=== PATIENT | female | born 1985 | race Caucasian/White ===

== ENCOUNTER → 2019-08-05 06:46 | Outpatient (CLI) | payer OTHER, SELFPAY ==
[2019-08-05 07:47] LABS: Add Manual Diff / Slide Review NO; Basophils Absolute Auto 100 /uL (0-100); Basophils Percent Auto 0.8 % (0-2); Eosinophils Absolute Auto 300 /uL (0-450); Eosinophils Percent Auto 4.6 % (2-4); Hematocrit 42.7 % (36-46); Hemoglobin 14.5 g/dL (12.0-16.0); Lymphocytes Absolute Auto 1700 /uL (1100-4500); Lymphocytes Percent Auto 25.5 % (25-40); Mean Corpuscular HGB Conc 33.9 % (30-36); Mean Corpuscular Hemoglobin 29.8 PG (26-34); Monocytes Absolute Auto 400 /uL (0-900); Monocytes Percent Auto 6.1 % (3-14); Neutrophils Absolute Auto 4200 /uL (1500-7000); Platelet Count 246 X10^3/uL (150-400); Red Blood Cell Count 4.85 X10^6/uL (4.0-5.2); Red Cell Distribution Width 12.8 % (11.6-14.8); White Blood Cell Count 6.7 X10^3/uL (4.5-11.0)
[2019-08-05 07:56] LABS: Alanine Aminotransferase 12 IU/L (<35); Albumin 4.3 g/dL (3.5-5.0); Albumin Globulin Ratio 1.3 (1.0-2.8); Alkaline Phosphatase 49 U/L (38-126); Aspartate Aminotransferase 20 IU/L (14-36); Bilirubin Total 0.8 mg/dL (0.2-1.3); Blood Urea Nitrogen 9 mg/dL (7-17); Calcium 9.6 mg/dL (8.4-10.2); Carbon Dioxide 24 mmol/L (22-32); Chloride 106 mmol/L (98-107); Estimated Glomerular Filt Rate > 60.0 mL/min (>60); Globulin 3.2 g/dL (1.7-4.1); Glucose 89 mg/dL (70-100); HEMOLYSIS < 15 (0-50); Potassium 4.7 mmol/L (3.4-5.1); Sodium 140 mmol/L (137-145); Total Protein 7.5 g/dL (6.3-8.2)
[2019-08-05 08:14] LABS: Vitamin D 25 Hydroxy (D3) 39.9 ng/mL (30.0-100.0)
[2019-08-05 08:26] LABS: Free T3, Triiodothyronine Free 3.36 pg/mL (2.77-5.27); Free T4, Direct Thyroxine 0.93 ng/dL (0.78-2.19)
[2019-08-05 08:40] LABS: Thyroid Stimulating Hormone 2.45 uIU/mL (0.47-4.68)
[2019-08-05 08:45] LABS: Vitamin B12 235 pg/mL (239-931)
== END ==
PROVIDERS: PCP Family Medicine; Referring Provider Family Medicine; Visit Provider Family Medicine
DX: E55.9 Vitamin D deficiency, unspecified (principal); R53.83 Other fatigue; Z13.29 Encounter for screening for other suspected endocrine disorder
CPT/HCPCS: 36415; 80053; 82306; 82607; 84439; 84443; 84481; 85025

== ENCOUNTER 2020-02-25 09:35 | Inpatient (IN) | payer OTHER, SELFPAY ==
[2020-02-25] VITALS (21 sets, daily range): BP systolic 101–138; BP diastolic 61–81; PULSE 61–106; RESP 14–32; TEMP 36.2–37.1; O2SAT 92–100; BMI 28.3
--- NOTE | 2020-02-25 | PATH_ITS ---
[facility] Accession Number: [id number] . 01 Material submitted: . body - MASS AT 20CM . 01 Clinical history: . CONSTIPATION/ABD PAIN 5-9/10 NAUSEA X3 DAYS . 02 Diagnosis: Colon Mass at 20 cm, Biopsy: Colonic mucosa with focal mucosal hyperplasia and benign lymphoid aggregates. Negative for dysplasia or malignancy. Additional step sections examined. V 03/01/2020 1344 Local . 02 Comment: Please see subsequent sigmoid resection case ([id number]) for additional information. . 02 Electronically signed: . Vito Paris MD, PhD, Pathologist NPI- [id number] . 01 Gross description: . Received in formalin, labeled mass at 20 cm, and consists of two santana-pink polyps measuring 0.5 and 0.6 cm. The margins are inked blue and green, the larger polyp is bisected, and the specimen is entirely submitted in cassette A1. (EA/[id number]) /V 02/26/2020 1238 Local . 02 Pathologist provided ICD-10: K63.5, K56.609 . 02 CPT . 542051 Performed at: 01 [facility] [address], [place], [place] [id number] MD Jaswinder Johnson MD Phone: [phone] Performed at: 02 [facility] [address] [place], [place] [id number] MD Nakita Limon MD Phone: [phone]
[2020-02-25 10:49] LABS: Add Manual Diff / Slide Review NO; Basophils Absolute Auto 0 /uL (0-100); Basophils Percent Auto 0.4 % (0-2); Eosinophils Absolute Auto 100 /uL (0-450); Hematocrit 43.2 % (36-46); Hemoglobin 14.6 g/dL (12.0-16.0); Lymphocytes Absolute Auto 1300 /uL (1100-4500); Lymphocytes Percent Auto 12.5 % (25-40); Mean Corpuscular HGB Conc 33.7 % (30-36); Mean Corpuscular Hemoglobin 29.3 PG (26-34); Mean Corpuscular Volume 86.9 fL (80-100); Monocytes Absolute Auto 500 /uL (0-900); Monocytes Percent Auto 5.2 % (3-14); Neutrophils Absolute Auto 8100 /uL (1500-7000); Neutrophils Percent Auto 80.9 % (50-75); Platelet Count 281 X10^3/uL (150-400); Red Blood Cell Count 4.97 X10^6/uL (4.0-5.2); Red Cell Distribution Width 12.5 % (11.6-14.8)
[2020-02-25 10:51] LABS: Prothrombin Time 11.6 SECONDS (10.1-12.7)
[2020-02-25 10:53] LABS: PTT Partial Thromboplastin Tim 30 SECONDS (26.4-36.2)
[2020-02-25 10:56] LABS: Alanine Aminotransferase 22 IU/L (<35); Albumin 4.6 g/dL (3.5-5.0); Albumin Globulin Ratio 1.4 (1.0-2.8); Alkaline Phosphatase 67 U/L (38-126); Aspartate Aminotransferase 32 IU/L (14-36); BUN Creatinine Ratio 12.1 (6-22); Bilirubin Total 0.8 mg/dL (0.2-1.3); Blood Urea Nitrogen 8 mg/dL (7-17); Calcium 9.4 mg/dL (8.4-10.2); Carbon Dioxide 27 mmol/L (22-32); Chloride 104 mmol/L (98-107); Estimated Glomerular Filt Rate > 60.0 mL/min (>60); Globulin 3.2 g/dL (1.7-4.1); Glucose 104 mg/dL (70-100); HEMOLYSIS < 15 (0-50); Lipase 77 U/L (23-300); Sodium 140 mmol/L (137-145); Total Protein 7.8 g/dL (6.3-8.2)
--- NOTE | 2020-02-25 11:21 | DI.RAD.S_ITS ---
PROCEDURE: XR ABDOMEN 1V INDICATIONS: constipation suspected TECHNIQUE: One view of the abdomen acquired. COMPARISON: None. FINDINGS: Surgical changes and devices: None. Bowel: There is segmental gaseous distention of the colon involving the transverse and descending colon with associated air-fluid levels. Scattered air-fluid levels are also demonstrated within nondistended small bowel loops. Soft tissues: No suspicious abdominal calcifications. Bones: No suspicious bony lesions. IMPRESSION: 1. Segmental gas distention of the colon associated with air-fluid levels in the small and large bowel. The findings are suspicious for a distal colonic obstruction. Recommend correlation clinically and further evaluation with CT if indicated. Dictated by: Jaswinder Madsen M.D. on 02/25/2020 at 12:10 Approved by: Jaswinder Madsen M.D. on 02/25/2020 at 12:18
--- NOTE | 2020-02-25 11:24 | ED.ABDPAIN ---
HPI - Abdominal Pain <Lizbet Barlow PA-C - Last Filed: 02/25/20 21:41> General Chief Complaint: Abdominal Pain Stated Complaint: CONSTIPATION/ABD PAIN 5-9/10 NAUSEA [id number] Time Seen by Provider: 02/25/20 11:05 Source: patient Mode of arrival: Ambulatory Limitations: no limitations History of Present Illness HPI narrative: A 34-year-old woman presents with complaint of abdominal pain and discomfort in the setting of her period and not having had a bowel movement for 6 days. She states that gift packer tells her that she may have endometriosis, and she began having pain when her period started on Sunday of last week 6 days ago. She thought this was related to her period. This continued for the next few days but by Sunday she felt that her pain was worsening significantly and she realized she had not had a bowel movement since Sunday. She describes the pain as a constant ache across her belly from left to right down low and states that occasionally there are intense sharp pains as well. It is a 5/10 constantly and sometimes jumping up to about an 8/10 with sharp pains. She has been having some nausea but has not vomited. She has not been eating normally because she feels like she has very little appetite and her stomach feels upset when she eats for the last few days. She has been able to tolerate some fluids. She has no prior history of any problem with constipation, no prior abdominal surgeries. She states that she normally has 1 bowel movement every day that is usually soft but formed. On Sunday she had a very small bowel movement that was abnormal for her. Last week her bowel movements were otherwise normal. the last 2 days she has tried taking milk of magnesia and earlier this morning she tried taking senna neither of these were at all helpful. She is on the last day my period and just has some light spotting right now. She denies any dysuria, fever, chills, vomiting, flank pain or any other symptoms. MD complaint: abdominal pain and other (nausea) Onset (ago): day(s) (6) Pain Consistency: constant Location: diffuse, LLQ and RLQ Severity: moderate Severity scale (1-10): 6 (Occasional sharp pains that jump up to an 8) Quality: aching and sharp Radiation: none Migration to: no migration Relieving factors: nothing Exacerbating factors: eating Associated symptoms: nausea Treatments prior to arrival: other (Milk of magnesia, senna) Related Data Date of Last Menstrual Period: 02/20/20 Home Medications Medication Instructions Recorded Confirmed diphenhydramine-acetaminophen 2 tab PO BEDTIME 02/25/20 02/25/20 [Tylenol PM Extra Strength] ibuprofen 400 mg PO Q6H PRN 02/25/20 02/25/20 Allergies Allergy/AdvReac Type Severity Reaction Status Date / Time No Known Drug Allergies Allergy Verified 02/25/20 16:00 Review of Systems <Lizbet Barlow PA-C - Last Filed: 02/25/20 21:41> Review of Systems Narrative: GENERAL: Denies chills, fatigue, malaise, fever, sweats. HEENT: Denies sinus pain, ear pain, sore throat, difficulty swallowing, dizziness. RESPIRATORY: Denies dyspnea, cough, wheezing, hemoptysis, sputum. CARDIOVASCULAR: Denies chest pain, palpitations, orthopnea, edema, GASTROINTESTINAL: Positive for nausea, negative for vomiting, positive for abdominal pain, negative for diarrhea, positive for constipation for 5 days, negative for melena. : Denies dysuria, frequency, incontinence, hematuria, urinary retention. MUSCULOSKELETAL: denies weakness, joint pain, or bony pain SKIN: Denies rash, skin lesions, or other NEUROLOGIC: Denies weakness, headache, numbness, change in speech, confusion, seizures, incoordination. PSYCHIATRIC: No concerning psychosocial issues. 12 point review of systems is negative except for those stated above ROS Unobtainable: All systems reviewed & are unremarkable except as noted in HPI and below Patient History <Lizbet Barlow PA-C - Last Filed: 02/25/20 21:41> Medical History Chicken pox (Resolved ~1995) Vitamin D deficiency (Acute) Family History Father Hypertension Grandfather Diabetes mellitus Grandfather Stroke Social History household members: spouse Smoking Status: Never smoker alcohol intake: current Smoking Status: Never smoker alcohol intake frequency: holidays/special occasions only Substance Use Type: marijuana Exam <Lizbet Barlow PA-C - Last Filed: 02/25/20 21:41> Narrative Exam Narrative: GENERAL: 34 year old patient appears stated age. Well-nourished, well-developed patient, in moderate distress. HEAD: Atraumatic. Normocephalic. EYES: Pupils equal round and reactive. Extraocular motions intact. No scleral icterus. No injection or drainage. ENT: Nose without bleeding, purulent drainage. Throat without erythema, tonsillar hypertrophy or exudate. Airway patent. NECK: Trachea midline. Non tender CARDIOVASCULAR: Regular rate and rhythm without murmurs, gallops, or rubs. RESPIRATORY: Clear to auscultation. Breath sounds equal bilaterally. No wheezes, rales, or rhonchi. GASTROINTESTINAL: Abdomen soft, hyperactive bowel sounds, generally non-tender, however there is general discomfort with palpation particularly of lower quadrants slight bloating but nondistended. EXTREMITIES: No edema or joint tenderness. BACK: Nontender without deformity or crepitance. No flank tenderness. NEURO: AOx3. SKIN: No rash or erythema of visible areas Initial Vital Signs Initial Vital Signs: Vital Signs Temperature 98.7 F 02/25/20 10:22 Pulse Rate 94 H 02/25/20 10:22 Respiratory Rate 14 02/25/20 10:22 Blood Pressure 138/81 02/25/20 10:22 Pulse Oximetry 96 02/25/20 10:22 <Starr Caceres MD - Last Filed: 03/02/20 07:31> Initial Vital Signs Initial Vital Signs: Vital Signs Temperature 98.7 F 02/25/20 10:22 Pulse Rate 94 H 02/25/20 10:22 Respiratory Rate 14 02/25/20 10:22 Blood Pressure 138/81 02/25/20 10:22 Pulse Oximetry 96 02/25/20 10:22 Scores <Lizbet Barlow PA-C - Last Filed: 02/25/20 21:41> GCS Crispin coma scale eye opening: Spontaneous [place] coma scale verbal response: Orientated Crispin coma scale motor response: Obey commands Crispin coma scale total score: 15 Course <ZOHRA Erazo Last Filed: 02/25/20 21:41> Course Course Narrative: Advised the patient of the need for CTscan for further evaluation. Patient in agreement. 12:[address] scan radiology read and imaging with Dr. Caceres, contacting on-call surgery. Concern for inflammatory process versus neoplasm of her colon. 13:[address] Gonzalez about this patient, he will review her imaging chart and take a look at her. 13:40 Orders Ordered: Acetaminophen (Tylenol) 650 mg PO Q6HR PRN PRN Reason: Fever/Mild Pain (1-3) Enoxaparin Sodium (Lovenox) 40 mg SUBCUT 1715 STAN Last Admin: 03/01/20 18:03 Dose: 40 mg Documented by: Admin: 02/29/20 21:13 Dose: 40 mg Documented by: Admin: 02/29/20 17:44 Dose: Not Given Documented by: MORGAN Hydromorphone HCl (Dilaudid) 0.5 mg IV Q2H PRN PRN Reason: Pain, Severe (7-10) Last Admin: 02/29/20 13:53 Dose: 0.5 mg Documented by: Admin: 02/28/20 07:49 Dose: 0.5 mg Documented by: MAXINE Ketorolac Tromethamine (Toradol) 30 mg IV Q6HR STAN Stop: 03/02/20 13:25 Last Admin: 03/02/20 06:13 Dose: 30 mg Documented by: Admin: 03/02/20 00:48 Dose: Not Given Documented by: Admin: 03/01/20 18:03 Dose: 30 mg Documented by: Admin: 03/01/20 14:57 Dose: Not Given Documented by: Admin: 03/01/20 06:23 Dose: 30 mg Documented by: Admin: 03/01/20 00:27 Dose: 30 mg Documented by: Admin: 02/29/20 17:53 Dose: 30 mg Documented by: Admin: 02/29/20 13:17 Dose: 30 mg Documented by: Admin: 02/29/20 05:29 Dose: 30 mg Documented by: Admin: 02/28/20 23:44 Dose: 30 mg Documented by: Admin: 02/28/20 18:00 Dose: 30 mg Documented by: Admin: 02/28/20 14:29 Dose: 30 mg Documented by: Admin: 02/28/20 06:03 Dose: 30 mg Documented by: Admin: 02/28/20 00:22 Dose: 30 mg Documented by: Admin: 02/27/20 17:45 Dose: 30 mg Documented by: Admin: 02/27/20 12:39 Dose: 30 mg Documented by: Admin: 02/27/20 06:03 Dose: 30 mg Documented by: Admin: 02/27/20 00:00 Dose: 30 mg Documented by: Admin: 02/26/20 17:57 Dose: 30 mg Documented by: MORGAN Loperamide HCl (Imodium) 2 mg PO PRN PRN PRN Reason: Diarrhea Lorazepam (Ativan) 0.5 mg PO Q4HR PRN PRN Reason: Anxiety Last Admin: 03/02/20 02:12 Dose: 0.5 mg Documented by: Admin: 03/01/20 20:48 Dose: 0.5 mg Documented by: Admin: 03/01/20 15:45 Dose: 0.5 mg Documented by: Admin: 03/01/20 11:36 Dose: 0.5 mg Documented by: LYNNE Morphine Sulfate (Morphine) 2 mg IV Q2HR PRN PRN Reason: Pain, Moderate (4-6) Last Admin: 02/26/20 02:27 Dose: 2 mg Documented by: Admin: 02/25/20 21:01 Dose: 2 mg Documented by: VARSHA Naloxone HCl (Narcan) 0.2 mg IV Q2MIN PRN PRN Reason: Opiate Reversal Ondansetron HCl (Zofran) 4 mg IV Q4HR PRN PRN Reason: Nausea And Vomiting Last Admin: 03/01/20 18:03 Dose: 4 mg Documented by: Admin: 02/29/20 16:38 Dose: 4 mg Documented by: MORGAN Oxycodone/Acetaminophen (Percocet 5/325) 1 tab PO Q4HR PRN PRN Reason: Pain, Moderate (4-6) Last Admin: 03/02/20 02:12 Dose: 1 tab Documented by: Admin: 03/01/20 20:48 Dose: 1 tab Documented by: Admin: 03/01/20 15:45 Dose: 1 tab Documented by: Admin: 03/01/20 11:36 Dose: 1 tab Documented by: Admin: 03/01/20 05:23 Dose: 1 tab Documented by: Admin: 02/29/20 22:02 Dose: 1 tab Documented by: Admin: 02/29/20 17:53 Dose: 1 tab Documented by: Admin: 02/29/20 13:07 Dose: 1 tab Documented by: LINDA Pantoprazole Sodium (Protonix) 20 mg PO 0700 STAN Last Admin: 03/02/20 06:13 Dose: 20 mg Documented by: CLEMENCIA Sertraline HCl (Zoloft) 100 mg PO BEDTIME STAN Last Admin: 03/01/20 20:48 Dose: 100 mg Documented by: Admin: 02/29/20 21:14 Dose: 100 mg Documented by: Admin: 02/28/20 20:34 Dose: 100 mg Documented by: Admin: 02/27/20 20:39 Dose: 100 mg Documented by: MORGAN Discontinued Medications Bupivacaine Liposome (Exparel) 266 mg INJ NOW ONE Stop: 02/26/20 08:43 Last Admin: 02/26/20 08:42 Dose: 266 mg Documented by: RAJAN Enoxaparin Sodium (Lovenox) 30 mg SUBCUT NOW ONE Stop: 02/28/20 09:54 Last Admin: 02/28/20 14:29 Dose: Not Given Documented by: MAXINE Enoxaparin Sodium (Lovenox) 40 mg SUBCUT 1400 STAN Fentanyl (Sublimaze) 0 mcg IV Q5M PRN PRN Reason: Pain, Moderate (4-6) Fentanyl (Sublimaze) 0 mcg IV Q5M PRN PRN Reason: Pain, Moderate (4-6) Hydromorphone HCl (Dilaudid) 0 mg IV Q5MIN PRN PRN Reason: Pain, Mild (1-3) Sodium Chloride (Normal Saline 0.9%) 1,000 mls @ 1,000 mls/hr IV BOLUS ONE Stop: 02/25/20 13:29 Last Infusion: 02/25/20 14:25 Dose: 0 mls/hr Documented by: Admin: 02/25/20 12:50 Dose: 1,000 mls/hr Documented by: CAITLIN Sodium Chloride (Normal Saline 0.9%) 1,000 mls @ 100 mls/hr IV CONT STAN Last Admin: 02/26/20 05:57 Dose: 100 mls/hr Documented by: Infusion: 02/26/20 05:33 Dose: 100 mls/hr Documented by: Admin: 02/25/20 19:33 Dose: 100 mls/hr Documented by: Infusion: 02/25/20 19:33 Dose: 100 mls/hr Documented by: Admin: 02/25/20 15:48 Dose: 100 mls/hr Documented by: MARIA LUISA Piperacillin/Tazobactam/Dextrose (Zosyn) 3.375 gm in 50 mls @ 100 mls/hr IV Q8H STAN Last Admin: 02/25/20 16:35 Dose: 100 mls/hr Documented by: KEMAL Lactated Ringer's (Lactated Ringers) 1,000 mls @ 42 mls/hr IV CONT STAN Last Infusion: 02/25/20 18:01 Dose: 0 mls/hr Documented by: Admin: 02/25/20 16:15 Dose: 42 mls/hr Documented by: KEMAL Lactated Ringer's (Lactated Ringers) 1,000 mls @ 42 mls/hr IV CONT STAN Last Admin: 02/25/20 19:51 Dose: Not Given Documented by: VARSHA Piperacillin/Tazobactam/Dextrose (Zosyn) 3.375 gm in 50 mls @ 100 mls/hr IV Q8H STAN Last Infusion: 02/26/20 08:11 Dose: 0 mls/hr Documented by: Admin: 02/26/20 07:50 Dose: 100 mls/hr Documented by: NIURKA Lactated Ringer's (Lactated Ringers) 1,000 mls @ 42 mls/hr IV CONT STAN Last Admin: 02/26/20 11:59 Dose: 42 mls/hr Documented by: Infusion: 02/26/20 11:59 Dose: 42 mls/hr Documented by: Admin: 02/26/20 09:26 Dose: 42 mls/hr Documented by: Infusion: 02/26/20 09:26 Dose: 42 mls/hr Documented by: Admin: 02/26/20 07:15 Dose: 42 mls/hr Documented by: ANNIE Lactated Ringer's (Lactated Ringers) 1,000 mls @ 100 mls/hr IV CONT STAN Last Infusion: 03/01/20 11:51 Dose: 0 mls/hr Documented by: Admin: 03/01/20 06:21 Dose: 200 mls/hr Documented by: Infusion: 03/01/20 05:41 Dose: 200 mls/hr Documented by: Admin: 03/01/20 00:41 Dose: 200 mls/hr Documented by: Infusion: 03/01/20 00:09 Dose: 200 mls/hr Documented by: Admin: 02/29/20 19:09 Dose: 200 mls/hr Documented by: Infusion: 02/29/20 19:09 Dose: 200 mls/hr Documented by: Admin: 02/29/20 14:15 Dose: 200 mls/hr Documented by: Infusion: 02/29/20 12:26 Dose: 200 mls/hr Documented by: Admin: 02/29/20 07:26 Dose: 200 mls/hr Documented by: [email or web address] Infusion: 02/29/20 07:06 Dose: 200 mls/hr Documented by: [email or web address] Admin: 02/29/20 02:06 Dose: 200 mls/hr Documented by: [email or web address] Infusion: 02/29/20 02:06 Dose: 200 mls/hr Documented by: [email or web address] Infusion: 02/28/20 21:44 Dose: 200 mls/hr Documented by: Admin: 02/28/20 20:33 Dose: 100 mls/hr Documented by: Infusion: 02/28/20 20:33 Dose: 100 mls/hr Documented by: Admin: 02/28/20 15:26 Dose: 100 mls/hr Documented by: Infusion: 02/28/20 15:26 Dose: 100 mls/hr Documented by: Admin: 02/28/20 10:20 Dose: 100 mls/hr Documented by: Infusion: 02/28/20 10:20 Dose: 0 mls/hr Documented by: Admin: 02/27/20 22:08 Dose: 100 mls/hr Documented by: Infusion: 02/27/20 22:08 Dose: 100 mls/hr Documented by: Admin: 02/27/20 12:38 Dose: 100 mls/hr Documented by: Infusion: 02/27/20 11:22 Dose: 100 mls/hr Documented by: Admin: 02/27/20 01:22 Dose: 100 mls/hr Documented by: Infusion: 02/27/20 00:26 Dose: 100 mls/hr Documented by: Admin: 02/26/20 14:26 Dose: 100 mls/hr Documented by: SPABONA FENT 2MCG/ML BUPIV 0.125% EPI (Fentanyl/Bupiv/Ns 2mcg/Ml - 0.125%) 200 mcg in 100 mls @ 10 mls/hr EPIDURAL CONT STAN Last Admin: 02/28/20 22:27 Dose: 6 mls/hr Documented by: Infusion: 02/28/20 22:27 Dose: 6 mls/hr Documented by: Admin: 02/28/20 10:19 Dose: 6 mls/hr Documented by: Infusion: 02/28/20 10:19 Dose: 0 mls/hr Documented by: Infusion: 02/28/20 06:00 Dose: 0 mls/hr Documented by: Admin: 02/27/20 20:40 Dose: 6 mls/hr Documented by: Infusion: 02/27/20 20:40 Dose: 6 mls/hr Documented by: Infusion: 02/27/20 16:45 Dose: 6 mls/hr Documented by: Admin: 02/27/20 12:39 Dose: 10 mls/hr Documented by: Infusion: 02/27/20 12:39 Dose: 10 mls/hr Documented by: Admin: 02/27/20 02:59 Dose: 10 mls/hr Documented by: Infusion: 02/27/20 02:59 Dose: 10 mls/hr Documented by: Admin: 02/26/20 19:03 Dose: 10 mls/hr Documented by: Infusion: 02/26/20 19:03 Dose: 10 mls/hr Documented by: Admin: 02/26/20 14:19 Dose: 10 mls/hr Documented by: SPABONA Piperacillin/Tazobactam/Dextrose (Zosyn) 3.375 gm in 50 mls @ 100 mls/hr IV Q6H [facility] Last Admin: 02/27/20 10:11 Dose: Not Given Documented by: Infusion: 02/27/20 02:59 Dose: 0 mls/hr Documented by: Admin: 02/27/20 01:25 Dose: 100 mls/hr Documented by: Infusion: 02/26/20 21:25 Dose: 0 mls/hr Documented by: Admin: 02/26/20 20:29 Dose: 100 mls/hr Documented by: Infusion: 02/26/20 14:56 Dose: 100 mls/hr Documented by: Admin: 02/26/20 14:26 Dose: 100 mls/hr Documented by: SPABONA Piperacillin/Tazobactam/Dextrose (Zosyn) 3.375 gm in 50 mls @ 100 mls/hr IV Q6H [facility] Last Infusion: 03/01/20 03:35 Dose: 0 mls/hr Documented by: Admin: 03/01/20 02:40 Dose: 100 mls/hr Documented by: Infusion: 02/29/20 21:45 Dose: 0 mls/hr Documented by: Admin: 02/29/20 21:14 Dose: 100 mls/hr Documented by: Infusion: 02/29/20 15:58 Dose: 0 mls/hr Documented by: Admin: 02/29/20 13:53 Dose: 100 mls/hr Documented by: Infusion: 02/29/20 11:17 Dose: 0 mls/hr Documented by: Admin: 02/29/20 09:38 Dose: 100 mls/hr Documented by: Infusion: 02/29/20 05:11 Dose: 0 mls/hr Documented by: Admin: 02/29/20 02:03 Dose: 100 mls/hr Documented by: Infusion: 02/29/20 02:02 Dose: 0 mls/hr Documented by: Admin: 02/28/20 20:28 Dose: 100 mls/hr Documented by: Infusion: 02/28/20 16:09 Dose: 0 mls/hr Documented by: Admin: 02/28/20 14:29 Dose: 100 mls/hr Documented by: Infusion: 02/28/20 10:19 Dose: 0 mls/hr Documented by: Admin: 02/28/20 09:19 Dose: 100 mls/hr Documented by: Infusion: 02/28/20 02:30 Dose: 0 mls/hr Documented by: Admin: 02/28/20 01:56 Dose: 100 mls/hr Documented by: Infusion: 02/27/20 21:37 Dose: 0 mls/hr Documented by: Admin: 02/27/20 20:39 Dose: 100 mls/hr Documented by: Infusion: 02/27/20 16:00 Dose: 0 mls/hr Documented by: Admin: 02/27/20 14:53 Dose: 100 mls/hr Documented by: Infusion: 02/27/20 12:39 Dose: 0 mls/hr Documented by: Admin: 02/27/20 09:52 Dose: 100 mls/hr Documented by: MAXINE Sodium Chloride (Normal Saline 0.9%) 1,000 mls @ 1,000 mls/hr IV BOLUS ONE Stop: 02/28/20 21:27 Last Infusion: 02/28/20 23:00 Dose: 0 mls/hr Documented by: Admin: 02/28/20 20:42 Dose: 1,000 mls/hr Documented by: STARLA Sodium Chloride (Normal Saline 0.9%) 1,000 mls @ 1,000 mls/hr IV BOLUS ONE Stop: 02/29/20 08:00 Last Infusion: 02/29/20 11:17 Dose: 0 mls/hr Documented by: Admin: 02/29/20 08:00 Dose: 1,000 mls/hr Documented by: MAXINE Ketorolac Tromethamine (Toradol) 15 mg IV NOW ONE Stop: 02/25/20 11:23 Last Admin: 02/25/20 11:48 Dose: 15 mg Documented by: VERONICA Loperamide HCl (Imodium) 2 mg PO NOW ONE Stop: 02/28/20 20:29 Last Admin: 02/28/20 20:47 Dose: 2 mg Documented by: STARLA Loperamide HCl (Imodium) 2 mg PO TID STAN Last Admin: 03/01/20 11:52 Dose: Not Given Documented by: Admin: 02/29/20 21:14 Dose: 2 mg Documented by: Admin: 02/29/20 16:37 Dose: 2 mg Documented by: Admin: 02/29/20 15:52 Dose: Not Given Documented by: MAXINE Lorazepam (Ativan) 0.5 mg IV NOW PRN PRN Reason: Anxiety Lorazepam (Ativan) 0.5 mg IV Q2HR PRN PRN Reason: Anxiety Last Admin: 03/01/20 05:23 Dose: 0.5 mg Documented by: Admin: 03/01/20 00:41 Dose: 0.5 mg Documented by: Admin: 02/29/20 22:02 Dose: 0.5 mg Documented by: Admin: 02/29/20 13:53 Dose: 0.5 mg Documented by: Admin: 02/29/20 04:27 Dose: 0.5 mg Documented by: Admin: 02/28/20 23:42 Dose: 0.5 mg Documented by: Admin: 02/28/20 18:01 Dose: 0.5 mg Documented by: Admin: 02/28/20 08:13 Dose: 0.5 mg Documented by: Admin: 02/28/20 00:22 Dose: 0.5 mg Documented by: Admin: 02/27/20 20:39 Dose: 0.5 mg Documented by: Admin: 02/27/20 00:08 Dose: 0.5 mg Documented by: Admin: 02/26/20 20:30 Dose: 0.5 mg Documented by: Admin: 02/26/20 06:46 Dose: 0.5 mg Documented by: Admin: 02/26/20 02:26 Dose: 0.5 mg Documented by: Admin: 02/25/20 19:32 Dose: 0.5 mg Documented by: VARSHA Ondansetron HCl (Zofran) 4 mg IV NOW ONE Stop: 02/25/20 11:08 Last Admin: 02/25/20 11:47 Dose: 4 mg Documented by: VERONICA Ondansetron HCl (Zofran) 4 mg IV Q8HR PRN PRN Reason: Nausea And Vomiting Last Admin: 02/29/20 09:44 Dose: 4 mg Documented by: Admin: 02/28/20 23:41 Dose: 4 mg Documented by: Admin: 02/28/20 14:30 Dose: 4 mg Documented by: MAXINE Ondansetron HCl (Zofran) 4 mg IV NOW PRN PRN Reason: Nausea And Vomiting Ondansetron HCl (Zofran) 4 mg IV NOW PRN PRN Reason: Nausea And Vomiting Pantoprazole Sodium (Protonix) 40 mg IV DAILY [facility] Last Admin: 03/01/20 11:52 Dose: Not Given Documented by: Admin: 02/29/20 09:38 Dose: 40 mg Documented by: MAXINE Sodium Biphosphate/Sodium Phosphate (Fleet Enema) 1 each [place] NOW ONE Stop: 02/25/20 15:27 Last Admin: 02/25/20 15:46 Dose: 1 each Documented by: MARIA LUISA Vital Signs Vital signs: Vital Signs - 8 hr 02/25/20 13:30 02/25/20 14:00 02/25/20 14:30 Pulse Rate 61 67 91 H Respiratory Rate 15 19 23 Pulse Oximetry 99 99 92 <Starr Caceres MD - Last Filed: 03/02/20 07:31> Orders Ordered: Acetaminophen (Tylenol) 650 mg PO Q6HR PRN PRN Reason: Fever/Mild Pain (1-3) Enoxaparin Sodium (Lovenox) 40 mg SUBCUT 1715 STAN Last Admin: 03/01/20 18:03 Dose: 40 mg Documented by: Admin: 02/29/20 21:13 Dose: 40 mg Documented by: Admin: 02/29/20 17:44 Dose: Not Given Documented by: MORGAN Hydromorphone HCl (Dilaudid) 0.5 mg IV Q2H PRN PRN Reason: Pain, Severe (7-10) Last Admin: 02/29/20 13:53 Dose: 0.5 mg Documented by: Admin: 02/28/20 07:49 Dose: 0.5 mg Documented by: MAXINE Ketorolac Tromethamine (Toradol) 30 mg IV Q6HR [facility] Stop: 03/02/20 13:25 Last Admin: 03/02/20 06:13 Dose: 30 mg Documented by: Admin: 03/02/20 00:48 Dose: Not Given Documented by: Admin: 03/01/20 18:03 Dose: 30 mg Documented by: Admin: 03/01/20 14:57 Dose: Not Given Documented by: Admin: 03/01/20 06:23 Dose: 30 mg Documented by: Admin: 03/01/20 00:27 Dose: 30 mg Documented by: Admin: 02/29/20 17:53 Dose: 30 mg Documented by: Admin: 02/29/20 13:17 Dose: 30 mg Documented by: Admin: 02/29/20 05:29 Dose: 30 mg Documented by: Admin: 02/28/20 23:44 Dose: 30 mg Documented by: Admin: 02/28/20 18:00 Dose: 30 mg Documented by: Admin: 02/28/20 14:29 Dose: 30 mg Documented by: Admin: 02/28/20 06:03 Dose: 30 mg Documented by: Admin: 02/28/20 00:22 Dose: 30 mg Documented by: Admin: 02/27/20 17:45 Dose: 30 mg Documented by: Admin: 02/27/20 12:39 Dose: 30 mg Documented by: Admin: 02/27/20 06:03 Dose: 30 mg Documented by: Admin: 02/27/20 00:00 Dose: 30 mg Documented by: Admin: 02/26/20 17:57 Dose: 30 mg Documented by: MORGAN Loperamide HCl (Imodium) 2 mg PO PRN PRN PRN Reason: Diarrhea Lorazepam (Ativan) 0.5 mg PO Q4HR PRN PRN Reason: Anxiety Last Admin: 03/02/20 02:12 Dose: 0.5 mg Documented by: Admin: 03/01/20 20:48 Dose: 0.5 mg Documented by: Admin: 03/01/20 15:45 Dose: 0.5 mg Documented by: Admin: 03/01/20 11:36 Dose: 0.5 mg Documented by: LYNNE Morphine Sulfate (Morphine) 2 mg IV Q2HR PRN PRN Reason: Pain, Moderate (4-6) Last Admin: 02/26/20 02:27 Dose: 2 mg Documented by: Admin: 02/25/20 21:01 Dose: 2 mg Documented by: VARSHA Naloxone HCl (Narcan) 0.2 mg IV Q2MIN PRN PRN Reason: Opiate Reversal Ondansetron HCl (Zofran) 4 mg IV Q4HR PRN PRN Reason: Nausea And Vomiting Last Admin: 03/01/20 18:03 Dose: 4 mg Documented by: Admin: 02/29/20 16:38 Dose: 4 mg Documented by: MORGAN Oxycodone/Acetaminophen (Percocet 5/325) 1 tab PO Q4HR PRN PRN Reason: Pain, Moderate (4-6) Last Admin: 03/02/20 02:12 Dose: 1 tab Documented by: Admin: 03/01/20 20:48 Dose: 1 tab Documented by: Admin: 03/01/20 15:45 Dose: 1 tab Documented by: Admin: 03/01/20 11:36 Dose: 1 tab Documented by: Admin: 03/01/20 05:23 Dose: 1 tab Documented by: Admin: 02/29/20 22:02 Dose: 1 tab Documented by: Admin: 02/29/20 17:53 Dose: 1 tab Documented by: Admin: 02/29/20 13:07 Dose: 1 tab Documented by: LINDA Pantoprazole Sodium (Protonix) 20 mg PO 0700 [facility] Last Admin: 03/02/20 06:13 Dose: 20 mg Documented by: CLEMENCIA Sertraline HCl (Zoloft) 100 mg PO BEDTIME [facility] Last Admin: 03/01/20 20:48 Dose: 100 mg Documented by: Admin: 02/29/20 21:14 Dose: 100 mg Documented by: Admin: 02/28/20 20:34 Dose: 100 mg Documented by: Admin: 02/27/20 20:39 Dose: 100 mg Documented by: MORGAN Discontinued Medications Bupivacaine Liposome (Exparel) 266 mg INJ NOW ONE Stop: 02/26/20 08:43 Last Admin: 02/26/20 08:42 Dose: 266 mg Documented by: RAJAN Enoxaparin Sodium (Lovenox) 30 mg SUBCUT NOW ONE Stop: 02/28/20 09:54 Last Admin: 02/28/20 14:29 Dose: Not Given Documented by: MAXINE Enoxaparin Sodium (Lovenox) 40 mg SUBCUT 1400 STAN Fentanyl (Sublimaze) 0 mcg IV Q5M PRN PRN Reason: Pain, Moderate (4-6) Fentanyl (Sublimaze) 0 mcg IV Q5M PRN PRN Reason: Pain, Moderate (4-6) Hydromorphone HCl (Dilaudid) 0 mg IV Q5MIN PRN PRN Reason: Pain, Mild (1-3) Sodium Chloride (Normal Saline 0.9%) 1,000 mls @ 1,000 mls/hr IV BOLUS ONE Stop: 02/25/20 13:29 Last Infusion: 02/25/20 14:25 Dose: 0 mls/hr Documented by: Admin: 02/25/20 12:50 Dose: 1,000 mls/hr Documented by: CAITLIN Sodium Chloride (Normal Saline 0.9%) 1,000 mls @ 100 mls/hr IV CONT STAN Last Admin: 02/26/20 05:57 Dose: 100 mls/hr Documented by: Infusion: 02/26/20 05:33 Dose: 100 mls/hr Documented by: Admin: 02/25/20 19:33 Dose: 100 mls/hr Documented by: Infusion: 02/25/20 19:33 Dose: 100 mls/hr Documented by: Admin: 02/25/20 15:48 Dose: 100 mls/hr Documented by: MARIA LUISA Piperacillin/Tazobactam/Dextrose (Zosyn) 3.375 gm in 50 mls @ 100 mls/hr IV Q8H STAN Last Admin: 02/25/20 16:35 Dose: 100 mls/hr Documented by: KEMAL Lactated Ringer's (Lactated Ringers) 1,000 mls @ 42 mls/hr IV CONT STAN Last Infusion: 02/25/20 18:01 Dose: 0 mls/hr Documented by: Admin: 02/25/20 16:15 Dose: 42 mls/hr Documented by: KEMAL Lactated Ringer's (Lactated Ringers) 1,000 mls @ 42 mls/hr IV CONT STAN Last Admin: 02/25/20 19:51 Dose: Not Given Documented by: VARSHA Piperacillin/Tazobactam/Dextrose (Zosyn) 3.375 gm in 50 mls @ 100 mls/hr IV Q8H STAN Last Infusion: 02/26/20 08:11 Dose: 0 mls/hr Documented by: Admin: 02/26/20 07:50 Dose: 100 mls/hr Documented by: NIURKA Lactated Ringer's (Lactated Ringers) 1,000 mls @ 42 mls/hr IV CONT STAN Last Admin: 02/26/20 11:59 Dose: 42 mls/hr Documented by: Infusion: 02/26/20 11:59 Dose: 42 mls/hr Documented by: Admin: 02/26/20 09:26 Dose: 42 mls/hr Documented by: Infusion: 02/26/20 09:26 Dose: 42 mls/hr Documented by: Admin: 02/26/20 07:15 Dose: 42 mls/hr Documented by: ANNIE Lactated Ringer's (Lactated Ringers) 1,000 mls @ 100 mls/hr IV CONT STAN Last Infusion: 03/01/20 11:51 Dose: 0 mls/hr Documented by: Admin: 03/01/20 06:21 Dose: 200 mls/hr Documented by: Infusion: 03/01/20 05:41 Dose: 200 mls/hr Documented by: Admin: 03/01/20 00:41 Dose: 200 mls/hr Documented by: Infusion: 03/01/20 00:09 Dose: 200 mls/hr Documented by: Admin: 02/29/20 19:09 Dose: 200 mls/hr Documented by: Infusion: 02/29/20 19:09 Dose: 200 mls/hr Documented by: Admin: 02/29/20 14:15 Dose: 200 mls/hr Documented by: Infusion: 02/29/20 12:26 Dose: 200 mls/hr Documented by: Admin: 02/29/20 07:26 Dose: 200 mls/hr Documented by: Infusion: 02/29/20 07:06 Dose: 200 mls/hr Documented by: Admin: 02/29/20 02:06 Dose: 200 mls/hr Documented by: CTRReginaALAFFE Infusion: 02/29/20 02:06 Dose: 200 mls/hr Documented by: CTRReginaALATRACY Infusion: 02/28/20 21:44 Dose: 200 mls/hr Documented by: Admin: 02/28/20 20:33 Dose: 100 mls/hr Documented by: Infusion: 02/28/20 20:33 Dose: 100 mls/hr Documented by: Admin: 02/28/20 15:26 Dose: 100 mls/hr Documented by: Infusion: 02/28/20 15:26 Dose: 100 mls/hr Documented by: Admin: 02/28/20 10:20 Dose: 100 mls/hr Documented by: Infusion: 02/28/20 10:20 Dose: 0 mls/hr Documented by: Admin: 02/27/20 22:08 Dose: 100 mls/hr Documented by: Infusion: 02/27/20 22:08 Dose: 100 mls/hr Documented by: Admin: 02/27/20 12:38 Dose: 100 mls/hr Documented by: Infusion: 02/27/20 11:22 Dose: 100 mls/hr Documented by: Admin: 02/27/20 01:22 Dose: 100 mls/hr Documented by: Infusion: 02/27/20 00:26 Dose: 100 mls/hr Documented by: Admin: 02/26/20 14:26 Dose: 100 mls/hr Documented by: SPABONA FENT 2MCG/ML BUPIV 0.125% EPI (Fentanyl/Bupiv/Ns 2mcg/Ml - 0.125%) 200 mcg in 100 mls @ 10 mls/hr EPIDURAL CONT STAN Last Admin: 02/28/20 22:27 Dose: 6 mls/hr Documented by: Infusion: 02/28/20 22:27 Dose: 6 mls/hr Documented by: Admin: 02/28/20 10:19 Dose: 6 mls/hr Documented by: Infusion: 02/28/20 10:19 Dose: 0 mls/hr Documented by: Infusion: 02/28/20 06:00 Dose: 0 mls/hr Documented by: Admin: 02/27/20 20:40 Dose: 6 mls/hr Documented by: Infusion: 02/27/20 20:40 Dose: 6 mls/hr Documented by: Infusion: 02/27/20 16:45 Dose: 6 mls/hr Documented by: Admin: 02/27/20 12:39 Dose: 10 mls/hr Documented by: Infusion: 02/27/20 12:39 Dose: 10 mls/hr Documented by: Admin: 02/27/20 02:59 Dose: 10 mls/hr Documented by: Infusion: 02/27/20 02:59 Dose: 10 mls/hr Documented by: Admin: 02/26/20 19:03 Dose: 10 mls/hr Documented by: Infusion: 02/26/20 19:03 Dose: 10 mls/hr Documented by: Admin: 02/26/20 14:19 Dose: 10 mls/hr Documented by: SPABONA Piperacillin/Tazobactam/Dextrose (Zosyn) 3.375 gm in 50 mls @ 100 mls/hr IV Q6H [facility] Last Admin: 02/27/20 10:11 Dose: Not Given Documented by: Infusion: 02/27/20 02:59 Dose: 0 mls/hr Documented by: Admin: 02/27/20 01:25 Dose: 100 mls/hr Documented by: Infusion: 02/26/20 21:25 Dose: 0 mls/hr Documented by: Admin: 02/26/20 20:29 Dose: 100 mls/hr Documented by: Infusion: 02/26/20 14:56 Dose: 100 mls/hr Documented by: Admin: 02/26/20 14:26 Dose: 100 mls/hr Documented by: KHUSHBUBONA Piperacillin/Tazobactam/Dextrose (Zosyn) 3.375 gm in 50 mls @ 100 mls/hr IV Q6H [facility] Last Infusion: 03/01/20 03:35 Dose: 0 mls/hr Documented by: Admin: 03/01/20 02:40 Dose: 100 mls/hr Documented by: Infusion: 02/29/20 21:45 Dose: 0 mls/hr Documented by: Admin: 02/29/20 21:14 Dose: 100 mls/hr Documented by: Infusion: 02/29/20 15:58 Dose: 0 mls/hr Documented by: Admin: 02/29/20 13:53 Dose: 100 mls/hr Documented by: Infusion: 02/29/20 11:17 Dose: 0 mls/hr Documented by: Admin: 02/29/20 09:38 Dose: 100 mls/hr Documented by: Infusion: 02/29/20 05:11 Dose: 0 mls/hr Documented by: Admin: 02/29/20 02:03 Dose: 100 mls/hr Documented by: Infusion: 02/29/20 02:02 Dose: 0 mls/hr Documented by: Admin: 02/28/20 20:28 Dose: 100 mls/hr Documented by: Infusion: 02/28/20 16:09 Dose: 0 mls/hr Documented by: Admin: 02/28/20 14:29 Dose: 100 mls/hr Documented by: Infusion: 02/28/20 10:19 Dose: 0 mls/hr Documented by: Admin: 02/28/20 09:19 Dose: 100 mls/hr Documented by: Infusion: 02/28/20 02:30 Dose: 0 mls/hr Documented by: Admin: 02/28/20 01:56 Dose: 100 mls/hr Documented by: Infusion: 02/27/20 21:37 Dose: 0 mls/hr Documented by: Admin: 02/27/20 20:39 Dose: 100 mls/hr Documented by: Infusion: 02/27/20 16:00 Dose: 0 mls/hr Documented by: Admin: 02/27/20 14:53 Dose: 100 mls/hr Documented by: Infusion: 02/27/20 12:39 Dose: 0 mls/hr Documented by: Admin: 02/27/20 09:52 Dose: 100 mls/hr Documented by: MAXINE Sodium Chloride (Normal Saline 0.9%) 1,000 mls @ 1,000 mls/hr IV BOLUS ONE Stop: 02/28/20 21:27 Last Infusion: 02/28/20 23:00 Dose: 0 mls/hr Documented by: Admin: 02/28/20 20:42 Dose: 1,000 mls/hr Documented by: STARLA Sodium Chloride (Normal Saline 0.9%) 1,000 mls @ 1,000 mls/hr IV BOLUS ONE Stop: 02/29/20 08:00 Last Infusion: 02/29/20 11:17 Dose: 0 mls/hr Documented by: Admin: 02/29/20 08:00 Dose: 1,000 mls/hr Documented by: MAXINE Ketorolac Tromethamine (Toradol) 15 mg IV NOW ONE Stop: 02/25/20 11:23 Last Admin: 02/25/20 11:48 Dose: 15 mg Documented by: VERONICA Loperamide HCl (Imodium) 2 mg PO NOW ONE Stop: 02/28/20 20:29 Last Admin: 02/28/20 20:47 Dose: 2 mg Documented by: STARLA Loperamide HCl (Imodium) 2 mg PO TID STAN Last Admin: 03/01/20 11:52 Dose: Not Given Documented by: Admin: 02/29/20 21:14 Dose: 2 mg Documented by: Admin: 02/29/20 16:37 Dose: 2 mg Documented by: Admin: 02/29/20 15:52 Dose: Not Given Documented by: MAXINE Lorazepam (Ativan) 0.5 mg IV NOW PRN PRN Reason: Anxiety Lorazepam (Ativan) 0.5 mg IV Q2HR PRN PRN Reason: Anxiety Last Admin: 03/01/20 05:23 Dose: 0.5 mg Documented by: Admin: 03/01/20 00:41 Dose: 0.5 mg Documented by: Admin: 02/29/20 22:02 Dose: 0.5 mg Documented by: Admin: 02/29/20 13:53 Dose: 0.5 mg Documented by: Admin: 02/29/20 04:27 Dose: 0.5 mg Documented by: Admin: 02/28/20 23:42 Dose: 0.5 mg Documented by: Admin: 02/28/20 18:01 Dose: 0.5 mg Documented by: Admin: 02/28/20 08:13 Dose: 0.5 mg Documented by: Admin: 02/28/20 00:22 Dose: 0.5 mg Documented by: Admin: 02/27/20 20:39 Dose: 0.5 mg Documented by: Admin: 02/27/20 00:08 Dose: 0.5 mg Documented by: Admin: 02/26/20 20:30 Dose: 0.5 mg Documented by: Admin: 02/26/20 06:46 Dose: 0.5 mg Documented by: Admin: 02/26/20 02:26 Dose: 0.5 mg Documented by: Admin: 02/25/20 19:32 Dose: 0.5 mg Documented by: VARSHA Ondansetron HCl (Zofran) 4 mg IV NOW ONE Stop: 02/25/20 11:08 Last Admin: 02/25/20 11:47 Dose: 4 mg Documented by: VERONICA Ondansetron HCl (Zofran) 4 mg IV Q8HR PRN PRN Reason: Nausea And Vomiting Last Admin: 02/29/20 09:44 Dose: 4 mg Documented by: Admin: 02/28/20 23:41 Dose: 4 mg Documented by: Admin: 02/28/20 14:30 Dose: 4 mg Documented by: MAXINE Ondansetron HCl (Zofran) 4 mg IV NOW PRN PRN Reason: Nausea And Vomiting Ondansetron HCl (Zofran) 4 mg IV NOW PRN PRN Reason: Nausea And Vomiting Pantoprazole Sodium (Protonix) 40 mg IV DAILY STAN Last Admin: 03/01/20 11:52 Dose: Not Given Documented by: Admin: 02/29/20 09:38 Dose: 40 mg Documented by: MAXINE Sodium Biphosphate/Sodium Phosphate (Fleet Enema) 1 each [place] NOW ONE Stop: 02/25/20 15:27 Last Admin: 02/25/20 15:46 Dose: 1 each Documented by: MARIA LUISA Vital Signs Vital signs: Vital Signs - 8 hr 02/25/20 13:30 02/25/20 14:00 02/25/20 14:30 Pulse Rate 61 67 91 H Respiratory Rate 15 19 23 Pulse Oximetry 99 99 92 MDM - Abdominal Pain <Lizbet Barlow PA-C - Last Filed: 02/25/20 21:41> Differential Diagnosis Differential diagnosis: Likely abdominal pain, constipation, endometriosis, pancreatitis, small bowel obstruction and other (large bowel obstruction, nausea) Medical Records Attestation: I reviewed the patient's medical records. Lab Data Attestation: I reviewed the patient's lab results. Result diagrams: 03/02/20 04:47 03/02/20 04:47 Labs: Lab Results 02/25/20 02/25/20 02/25/20 Range/Units 10:39 10:39 10:39 WBC 10.0 (4.5-11.0) X10^3/uL RBC 4.97 (4.0-5.2) X10^6/uL Hgb 14.6 (12.0-16.0) g/dL Hct 43.2 (36-46) % MCV 86.9 (80-100) fL MCH 29.3 (26-34) PG MCHC 33.7 (30-36) % RDW 12.5 (11.6-14.8) % Plt Count 281 (150-400) X10^3/uL Neut % (Auto) 80.9 H (50-75) % Lymph % (Auto) 12.5 L (25-40) % [place] % (Auto) 5.2 (3-14) % Eos % (Auto) 1.0 L (2-4) % Baso % (Auto) 0.4 (0-2) % Neut # (Auto) 8100 H (4704-8936) /uL Lymph # (Auto) 1300 (4133-9446) /uL [place] # (Auto) 500 (0-900) /uL Eos # (Auto) 100 (0-450) /uL Baso # (Auto) 0 (0-100) /uL PT 11.6 (10.1-12.7) SECONDS INR 1.0 (0.9-1.3) APTT 30 (26.4-36.2) SECONDS Sodium 140 (137-145) mmol/L Potassium 4.0 (3.4-5.1) mmol/L Chloride 104 (98-107) mmol/L Carbon Dioxide 27 (22-32) mmol/L BUN 8 (7-17) mg/dL Creatinine 0.66 (0.52-1.04) mg/dL Estimated GFR > 60.0 (>60) mL/min BUN/Creatinine Ratio 12.1 (6-22) Glucose 104 H (70-100) mg/dL Calcium 9.4 (8.4-10.2) mg/dL Total Bilirubin 0.8 (0.2-1.3) mg/dL AST 32 (14-36) IU/L ALT 22 (<35) IU/L Alkaline Phosphatase 67 (38-126) U/L Total Protein 7.8 (6.3-8.2) g/dL Albumin 4.6 (3.5-5.0) g/dL Globulin 3.2 (1.7-4.1) g/dL Albumin/Globulin Ratio 1.4 (1.0-2.8) Lipase 77 (23-300) U/L Urine RBC (0-5/HPF) Urine WBC (0-5/HPF) Urine Bacteria (None) Urine Mucus (Negative) Ur Culture Indicated? 02/25/20 Range/Units 12:45 WBC (4.5-11.0) X10^3/uL RBC (4.0-5.2) X10^6/uL Hgb (12.0-16.0) g/dL Hct (36-46) % MCV (80-100) fL MCH (26-34) PG MCHC (30-36) % RDW (11.6-14.8) % Plt Count (150-400) X10^3/uL Neut % (Auto) (50-75) % Lymph % (Auto) (25-40) % [place] % (Auto) (3-14) % Eos % (Auto) (2-4) % Baso % (Auto) (0-2) % Neut # (Auto) (0690-8016) /uL Lymph # (Auto) (7284-7139) /uL [place] # (Auto) (0-900) /uL Eos # (Auto) (0-450) /uL Baso # (Auto) (0-100) /uL PT (10.1-12.7) SECONDS INR (0.9-1.3) APTT (26.4-36.2) SECONDS Sodium (137-145) mmol/L Potassium (3.4-5.1) mmol/L Chloride (98-107) mmol/L Carbon Dioxide (22-32) mmol/L BUN (7-17) mg/dL Creatinine (0.52-1.04) mg/dL Estimated GFR (>60) mL/min BUN/Creatinine Ratio (6-22) Glucose (70-100) mg/dL Calcium (8.4-10.2) mg/dL Total Bilirubin (0.2-1.3) mg/dL AST (14-36) IU/L ALT (<35) IU/L Alkaline Phosphatase (38-126) U/L Total Protein (6.3-8.2) g/dL Albumin (3.5-5.0) g/dL Globulin (1.7-4.1) g/dL Albumin/Globulin Ratio (1.0-2.8) Lipase (23-300) U/L Urine RBC 1-5/hpf (0-5/HPF) Urine WBC None seen (0-5/HPF) Urine Bacteria None seen (None) Urine Mucus 1+ H (Negative) Ur Culture Indicated? Cult not indicated Point of care testing: Point of Care Testing Test Results Negative Urine Dip Bedside Urine Glucose 100 mg/dl Bedside Urine Bilirubin - Negative Bedside Urine Ketone ++ 40 Urine Specific [place] 1.025 Bedside Urine Occult Blood + Bedside Urine pH 6.0 Bedside Urine Protein +/- 15 Bedside Urine Urobilinogen - Negative Bedside Urine Nitrite - Negative Bedside Urine Leukocytes - Negative Esterase Imaging Data Abdominal x-ray: Attestation: I personally reviewed and interpreted this imaging study as follows: Radiologist's Impression: [address] [address] XRay Report Signed Patient: Kym Ingram WMR#: [id number] : 1985Acct:[id number] Age/Sex: 34 / FDate of Service: 02/25/20 Loc: ED Accession Number: [id number] Procedure: XR abdomen 1V Ordering Provider: Lizbet Barlow P.A-C PROCEDURE: XR ABDOMEN 1V INDICATIONS: constipation suspected TECHNIQUE: One view of the abdomen acquired. COMPARISON: None. FINDINGS: Surgical changes and devices: None. Bowel: There is segmental gaseous distention of the colon involving the transverse and descending colon with associated air-fluid levels. Scattered air-fluid levels are also demonstrated within nondistended small bowel loops. Soft tissues: No suspicious abdominal calcifications. Bones: No suspicious bony lesions. IMPRESSION: 1. Segmental gas distention of the colon associated with air-fluid levels in the small and large bowel. The findings are suspicious for a distal colonic obstruction. Recommend correlation clinically and further evaluation with CT if indicated. Dictated by: Jaswinder Madsen M.D. on 02/25/2020 at 12:10 Approved by: Jaswinder Madsen M.D. on 02/25/2020 at 12:18 CT scan - abdomen/pelvis: Attestation: I personally reviewed and interpreted this imaging study as follows: Radiologist's Impression: [address] [address] [address] Scan Report Signed Patient: Kym Ingram WMR#: [id number] : 1985Acct:[id number] Age/Sex: 34 / FDate of Service: 02/25/20 Loc: ED Accession Number: [id number] Procedure: CT abdomen pelvis w con Ordering Provider: Lizbet Barlow P.A-C PROCEDURE: CT ABDOMEN PELVIS W CON INDICATIONS: distal colonic obstruction on XR. air fluid levels TECHNIQUE: After the administration of intravenous contrast, 5 mm thick sections acquired from the diaphragm to the symphysis. 5 mm coronal and sagittal reformats were acquired. For radiation dose reduction, the following was used: automated exposure control, adjustment of mA and/or kV according to patient size. COMPARISON: [facility], CR, XR ABDOMEN 1V, 02/25/2020, 10:31. FINDINGS: Image quality: Excellent. ABDOMEN: Lung bases: Lung bases are clear. Heart size is normal. Solid organs: Liver is normal in size and enhancement. Incidental note is made of focal fatty infiltration adjacent to the falciform ligament, which is not regarded to be pathologic. Gallbladder wall is not thickened . Biliary system is non dilated. Pancreas enhances normally. Spleen is normal in size and enhancement. No adrenal nodules. Kidneys demonstrate normal size and enhancement, without hydronephrosis. Peritoneum and bowel: Within the distal sigmoid colon, there is abnormal wall thickening with abnormal hyperenhancement seen, which spans nearly 5 cm, and can be seen on series 2, image 73 and on series 5, image 40. Proximal to this point, there is prominent stool seen, colonic loops that measure up to 7.2 cm. No free air is seen. No loculated abscess is seen. Within the pelvis, there is a mild amount of simple free fluid seen, which is more than would be expected for normal physiologic limits for a menstruating female. No dilated loops of small bowel are seen. Nodes and vessels: No retroperitoneal or mesenteric adenopathy by size criteria. Aorta and inferior vena cava are normal in size. Miscellaneous: No ventral hernias. PELVIS: Genitourinary: Bladder wall thickness is normal. The uterine cervix is abnormally prominent, measuring up to 4.3 cm transversely. Miscellaneous: No inguinal hernias or adenopathy. Bones: No suspicious bony lesions. No vertebral body compression fractures. Mild dextroconvex scoliotic curvature is seen. IMPRESSION: Abnormal wall thickening seen within the distal sigmoid colon, with associated colonic obstruction. Although unusual in a patient of this age, please consider primary colonic neoplasm. Differential diagnosis would include an inflammatory lesion and metastatic disease, however. The uterine cervix is abnormally enlarged. Please correlate with patient history and physical examination findings. A mild amount of free fluid is seen within the pelvis. This is more than would be expected for normal physiologic fluid in a woman of this age. Dictated by: Flavio Nguyen M.D. on 02/25/2020 at 12:07 Approved by: Flavio Nguyen M.D. on 02/25/2020 at 12:13 [facility] Narrative Medical decision making narrative: This is a previously healthy 34-year-old woman who presents to the emergency department complaining of abdominal discomfort, pain, nausea and no bowel movement for 6 days. She endorses no previous history of constipation, has been on her period for 6 days. Labs are unremarkable, she has slight relief with Toradol and Zofran, exam is remarkable for minimal tenderness, generalized discomfort. X-ray was remarkable for air-fluid levels and suggestion of a distal bowel obstruction. CT scan revealed obstruction with a distal colonic mass, concerning for neoplasm versus inflammatory process. Surgery was consulted, they discussed the CT results with the patient and she was admitted to the hospital for colonoscopy today and potential surgery tomorrow. <Starr Caceres MD - Last Filed: 03/02/20 07:31> Lab Data Labs: Lab Results 02/25/20 02/25/20 02/25/20 Range/Units 10:39 10:39 10:39 WBC 10.0 (4.5-11.0) X10^3/uL RBC 4.97 (4.0-5.2) X10^6/uL Hgb 14.6 (12.0-16.0) g/dL Hct 43.2 (36-46) % MCV 86.9 (80-100) fL MCH 29.3 (26-34) PG MCHC 33.7 (30-36) % RDW 12.5 (11.6-14.8) % Plt Count 281 (150-400) X10^3/uL Neut % (Auto) 80.9 H (50-75) % Lymph % (Auto) 12.5 L (25-40) % [place] % (Auto) 5.2 (3-14) % Eos % (Auto) 1.0 L (2-4) % Baso % (Auto) 0.4 (0-2) % Neut # (Auto) 8100 H (6636-9214) /uL Lymph # (Auto) 1300 (3044-9162) /uL [place] # (Auto) 500 (0-900) /uL Eos # (Auto) 100 (0-450) /uL Baso # (Auto) 0 (0-100) /uL PT 11.6 (10.1-12.7) SECONDS INR 1.0 (0.9-1.3) APTT 30 (26.4-36.2) SECONDS Sodium 140 (137-145) mmol/L Potassium 4.0 (3.4-5.1) mmol/L Chloride 104 (98-107) mmol/L Carbon Dioxide 27 (22-32) mmol/L BUN 8 (7-17) mg/dL Creatinine 0.66 (0.52-1.04) mg/dL Estimated GFR > 60.0 (>60) mL/min BUN/Creatinine Ratio 12.1 (6-22) Glucose 104 H (70-100) mg/dL Calcium 9.4 (8.4-10.2) mg/dL Total Bilirubin 0.8 (0.2-1.3) mg/dL AST 32 (14-36) IU/L ALT 22 (<35) IU/L Alkaline Phosphatase 67 (38-126) U/L Total Protein 7.8 (6.3-8.2) g/dL Albumin 4.6 (3.5-5.0) g/dL Globulin 3.2 (1.7-4.1) g/dL Albumin/Globulin Ratio 1.4 (1.0-2.8) Lipase 77 (23-300) U/L Urine RBC (0-5/HPF) Urine WBC (0-5/HPF) Urine Bacteria (None) Urine Mucus (Negative) Ur Culture Indicated? 02/25/20 Range/Units 12:45 WBC (4.5-11.0) X10^3/uL RBC (4.0-5.2) X10^6/uL Hgb (12.0-16.0) g/dL Hct (36-46) % MCV (80-100) fL MCH (26-34) PG MCHC (30-36) % RDW (11.6-14.8) % Plt Count (150-400) X10^3/uL Neut % (Auto) (50-75) % Lymph % (Auto) (25-40) % [place] % (Auto) (3-14) % Eos % (Auto) (2-4) % Baso % (Auto) (0-2) % Neut # (Auto) (2706-5659) /uL Lymph # (Auto) (8548-6465) /uL [place] # (Auto) (0-900) /uL Eos # (Auto) (0-450) /uL Baso # (Auto) (0-100) /uL PT (10.1-12.7) SECONDS INR (0.9-1.3) APTT (26.4-36.2) SECONDS Sodium (137-145) mmol/L Potassium (3.4-5.1) mmol/L Chloride (98-107) mmol/L Carbon Dioxide (22-32) mmol/L BUN (7-17) mg/dL Creatinine (0.52-1.04) mg/dL Estimated GFR (>60) mL/min BUN/Creatinine Ratio (6-22) Glucose (70-100) mg/dL Calcium (8.4-10.2) mg/dL Total Bilirubin (0.2-1.3) mg/dL AST (14-36) IU/L ALT (<35) IU/L Alkaline Phosphatase (38-126) U/L Total Protein (6.3-8.2) g/dL Albumin (3.5-5.0) g/dL Globulin (1.7-4.1) g/dL Albumin/Globulin Ratio (1.0-2.8) Lipase (23-300) U/L Urine RBC 1-5/hpf (0-5/HPF) Urine WBC None seen (0-5/HPF) Urine Bacteria None seen (None) Urine Mucus 1+ H (Negative) Ur Culture Indicated? Cult not indicated Point of care testing: Point of Care Testing Test Results Negative Urine Dip Bedside Urine Glucose 100 mg/dl Bedside Urine Bilirubin - Negative Bedside Urine Ketone ++ 40 Urine Specific [place] 1.025 Bedside Urine Occult Blood + Bedside Urine pH 6.0 Bedside Urine Protein +/- 15 Bedside Urine Urobilinogen - Negative Bedside Urine Nitrite - Negative Bedside Urine Leukocytes - Negative Esterase Discharge Plan Departure Patient Disposition: Admitted As Inpatient Clinical Impression: Large bowel obstruction Abdominal pain Qualifiers: Abdominal location: generalized Qualified Code(s): R10.84 - Generalized abdominal pain Discharge Date/Time: 02/25/20 15:51 Referrals: Mundo Patricio DO [Primary Care Provider] - Admit Date/Time: 02/25/20 14:37 Admit Provider: Wesley Gonzalez <Starr Caceres MD - Last Filed: 03/02/20 07:31> Cosign ED Attending Cosignature Attestation: I was immediately available in the department for consultation throughout this patient's visit. I agree with documentation as above. Starr Caceres MD
[2020-02-25] MEDS: ONDANSETRON 4 MG/2 ML INJ IV (11:47)
[2020-02-25] MEDS: KETOROLAC 60 MG/2 ML VIAL 15 MG IV (11:48)
[2020-02-25] MEDS: SODIUM CHLORIDE 0.9% 1,000 ML 1000 ML IV (12:50)
--- NOTE | 2020-02-25 12:56 | DI.CT.S_ITS ---
PROCEDURE: CT ABDOMEN PELVIS W CON INDICATIONS: distal colonic obstruction on XR. air fluid levels TECHNIQUE: After the administration of intravenous contrast, 5 mm thick sections acquired from the diaphragm to the symphysis. 5 mm coronal and sagittal reformats were acquired. For radiation dose reduction, the following was used: automated exposure control, adjustment of mA and/or kV according to patient size. COMPARISON: [facility], CR, XR ABDOMEN 1V, 02/25/2020, 10:31. FINDINGS: Image quality: Excellent. ABDOMEN: Lung bases: Lung bases are clear. Heart size is normal. Solid organs: Liver is normal in size and enhancement. Incidental note is made of focal fatty infiltration adjacent to the falciform ligament, which is not regarded to be pathologic. Gallbladder wall is not thickened . Biliary system is non dilated. Pancreas enhances normally. Spleen is normal in size and enhancement. No adrenal nodules. Kidneys demonstrate normal size and enhancement, without hydronephrosis. Peritoneum and bowel: Within the distal sigmoid colon, there is abnormal wall thickening with abnormal hyperenhancement seen, which spans nearly 5 cm, and can be seen on series 2, image 73 and on series 5, image 40. Proximal to this point, there is prominent stool seen, colonic loops that measure up to 7.2 cm. No free air is seen. No loculated abscess is seen. Within the pelvis, there is a mild amount of simple free fluid seen, which is more than would be expected for normal physiologic limits for a menstruating female. No dilated loops of small bowel are seen. Nodes and vessels: No retroperitoneal or mesenteric adenopathy by size criteria. Aorta and inferior vena cava are normal in size. Miscellaneous: No ventral hernias. PELVIS: Genitourinary: Bladder wall thickness is normal. The uterine cervix is abnormally prominent, measuring up to 4.3 cm transversely. Miscellaneous: No inguinal hernias or adenopathy. Bones: No suspicious bony lesions. No vertebral body compression fractures. Mild dextroconvex scoliotic curvature is seen. IMPRESSION: Abnormal wall thickening seen within the distal sigmoid colon, with associated colonic obstruction. Although unusual in a patient of this age, please consider primary colonic neoplasm. Differential diagnosis would include an inflammatory lesion and metastatic disease, however. The uterine cervix is abnormally enlarged. Please correlate with patient history and physical examination findings. A mild amount of free fluid is seen within the pelvis. This is more than would be expected for normal physiologic fluid in a woman of this age. Dictated by: Flavio Nguyen M.D. on 02/25/2020 at 12:07 Approved by: Flavio Nguyen M.D. on 02/25/2020 at 12:13
[2020-02-25 13:11] LABS: Bacteria Urine None Seen; WBC Urine None Seen (0-5/HPF)
[2020-02-25 13:16] LABS: Mucus Urine 1+ (Negative); RBC Urine 1-5/HPF (0-5/HPF)
[2020-02-25 13:17] LABS: Culture Indicated Urine Cult Not Indicated
--- NOTE | 2020-02-25 14:54 | P.HP_ITS ---
History of Present Illness History of Present Illness Date Patient Seen: 02/25/20 Time Patient Seen: 14:55 Chief complaint: CONSTIPATION/ABD PAIN 5-9/10 NAUSEA X3DAYS Narrative: 34-year-old woman seen in the emergency room for consultation of a large-bowel obstruction. For the past 5 days she has had worsening abdominal pain and distension and has had no bowel movement in the past 4 days no flatus. She is nauseous no emesis. For the past several months she has noticed change in her bowel habits she has been having frequent episodes of diarrhea as well as some vague abdominal pain. Today she underwent a CT of the abdomen pelvis that demonstrates a large bowel obstruction there is significant wall thickening of the sigmoid colon and some associated free fluid. Vital signs are within limits laboratory studies are unremarkable. She has no significant past medical history. No family history of intestinal malignancy or inflammatory bowel disease. Patient History Medical History Chicken pox (Resolved ~1995) Vitamin D deficiency (Acute) Family & Social History Family History Father Hypertension Grandfather Diabetes mellitus Grandfather Stroke Safety & Behavioral: Feels Safe in Current Yes Environment Been Physically Hurt or No Threatened By a Person Tobacco & Substance use: Smoking Status Never smoker alcohol intake frequency holiday/special occasion Substance Use Type marijuana Meds Home Medications and Allergies Home Medications Medication Instructions Recorded Confirmed Type norgestimate 0.25 mg-ethinyl 1 tab PO DAILY #4 pac 06/16/19 08/04/19 Rx estradiol 35 mcg tablet Allergies Allergy/AdvReac Type Severity Reaction Status Date / Time No Known Drug Allergies Allergy Unverified 08/04/19 09:54 Review of Systems Review of Systems Narrative: A 10 point review of systems is negative except as noted in the HPI Exam Vital Signs (past 8 hours): - 02/25/20 10:22 02/25/20 13:05 02/25/20 13:11 Temperature 98.7 F Pulse Rate 94 H 72 71 Respiratory Rate 14 21 15 Blood Pressure 138/81 102/61 Pulse Oximetry 96 99 99 02/25/20 13:30 02/25/20 14:00 Temperature Pulse Rate 61 67 Respiratory Rate 15 19 Blood Pressure Pulse Oximetry 99 99 Oxygen Delivery Method Room Air Narrative Exam Narrative: General-no acute distress, well nourished adult female HEENT-moist mucous membranes, no scleral icterus Neck-supple, no lymphadenopathy Chest- non labored respirations, clear to auscultation bilaterally Cardiac-regular rate no peripheral edema Abdomen-tender no peritonitis distended Extremities-warm, well perfused Neurological-alert and oriented, no focal deficits Objective Labs Result Diagrams: 02/25/20 10:39 02/25/20 10:39 Labs: Laboratory Results - last 24 hr 02/25/20 02/25/20 02/25/20 10:39 10:39 10:39 WBC 10.0 RBC 4.97 Hgb 14.6 Hct 43.2 MCV 86.9 MCH 29.3 MCHC 33.7 RDW 12.5 Plt Count 281 Neut % (Auto) 80.9 H Lymph % (Auto) 12.5 L [place] % (Auto) 5.2 Eos % (Auto) 1.0 L Baso % (Auto) 0.4 Neut # (Auto) 8100 H Lymph # (Auto) 1300 [place]dwell # (Auto) 500 Eos # (Auto) 100 Baso # (Auto) 0 PT 11.6 INR 1.0 APTT 30 Sodium 140 Potassium 4.0 Chloride 104 Carbon Dioxide 27 BUN 8 Creatinine 0.66 Estimated GFR > 60.0 BUN/Creatinine Ratio 12.1 Glucose 104 H Calcium 9.4 Total Bilirubin 0.8 AST 32 ALT 22 Alkaline Phosphatase 67 Total Protein 7.8 Albumin 4.6 Globulin 3.2 Albumin/Globulin Ratio 1.4 Lipase 77 Urine RBC Urine WBC Urine Bacteria Urine Mucus Ur Culture Indicated? 02/25/20 12:45 WBC RBC Hgb Hct MCV MCH MCHC RDW Plt Count Neut % (Auto) Lymph % (Auto) Caldwell % (Auto) Eos % (Auto) Baso % (Auto) Neut # (Auto) Lymph # (Auto) Caldwell # (Auto) Eos # (Auto) Baso # (Auto) PT INR APTT Sodium Potassium Chloride Carbon Dioxide BUN Creatinine Estimated GFR BUN/Creatinine Ratio Glucose Calcium Total Bilirubin AST ALT Alkaline Phosphatase Total Protein Albumin Globulin Albumin/Globulin Ratio Lipase Urine RBC 1-5/hpf Urine WBC None seen Urine Bacteria None seen Urine Mucus 1+ H Ur Culture Indicated? Cult not indicated Assessment & Plan Assessment and plan (1) Large bowel obstruction: Status: Acute Assessment & Plan narrative: 34-year-old woman with no significant past medical history with a large bowel obstruction. I reviewed her CT scan demonstrates colonic distension and abnormal sigmoid wall thickening and small amount of free fluid within the pelvis. I had a long discussion with patient. I told her that at this point I am unsure as to the cause of her large bowel obstruction, malignancy versus benign. I told her that I recommend that we admit her to the hospital and that we perform a colonoscopy today for diagnostic purpose. We discussed the technical nature of the procedure and the associated risk including bleeding, infection, perforation. The procedure should be performed with an anesthesiologist given her risk of aspiration in setting of bowel obstruction. I told her there is a possibility that this may represent colon cancer and that she may require colon resection and possible diverting ileostomy during this hospitalization.
[2020-02-25 15:27] LABS: COVID19 -Nasal RAPID Negative (Negative)
[2020-02-25] MEDS: FLEETS ENEMA 1 EACH PR (15:46)
[2020-02-25] MEDS: SODIUM CHLORIDE 0.9% 1,000 ML 100 ML IV ×2 (15:48→19:33)
[2020-02-25] MEDS: LACTATED RINGERS 1,000 ML 42 ML IV (16:15)
[2020-02-25] MEDS: PIPERACILLIN-TAZO 3.375 GM/50 ML FROZ.PIGGY IV (16:35)
--- NOTE | 2020-02-25 18:15 | PM.OP.ENDO ---
Operative Date/Time/Diagnoses Date of procedure: 02/25/20 Time of procedure: 18:15 Pre-op diagnosis: colonic mass Post-op diagnosis: same Procedure & Clinicians Study performed: sigmoidoscopy Same procedure as scheduled: Yes Indications: 34F presented with a large bowel obstruction and a mass appearance in the sigmoid colon on CT A/P Surgeon: Wesley Gonzalez Procedure Notes SCOAP/Timeout: performed Procedure in detail: Patient placed in left lateral recumbent position. Time out was performed. Procedural sedation was administered by anesthesia. A rectal examination was performed there were no masses within the rectum that were palpable. The colonoscopy scope was then placed into the rectum the the lumen was insufflated with gently with CO2 as I was concerned about overdistending the cecum in the setting of a large bowel obstruction. The scope was carefully advanced forward. At 20 cm from the anal verge a near circumferential mass was encountered. The mass was odd in its appearance it was several centimeters large and without ulcerations or hemorrhage. I was unable to discern if it was a massive polyp, a sumucosal mass, or an adenocarcinoma. I used the pediatric scope but was still unable to advance past it. I took several snare biopsies of the mass which were sent to pathology. Hemostasis was observed. I injected 1 mL of tattoo approximately 1 cm below the mass. The scope was then withdrawn Scope withdrawal time: NA Findings: other findings (colonic mass) Specimen(s): other (colonic mass) Impression: colonic mass causing large bowel obstruction Post-procedure Plan for aftercare: OR for exploratory laparotomy
[2020-02-25] MEDS: LORazepam 2 MG/ML INJ 0.5 MG IV (19:32)
[2020-02-25] MEDS: MORPHINE 2 MG/ML INJ IV (21:01)
--- NOTE | 2020-02-25 22:06 | PC.NURSE ---
Evening shift. pt arrived from PACU around 1814. Very tearful and reporting mild pain/discomfort to lower anterior abdomen. pt is now in room and staying the night. PIV to left wrist infusing NS at 100/hr with intermittent pain and anti-anxiety medications. Up SBA/IND to BR and took shower. Morphine 2mg IV administered for 7/10 pain and improving. Anxiety has improved since Ativan IV administration at 194 and pt now resting in the dark. Plan is to have another surgery 02/25 AM.
[2020-02-26] VITALS (23 sets, daily range): BP systolic 85–125; BP diastolic 52–80; PULSE 18–110; RESP 12–19; TEMP 36.9–38.7; O2SAT 95–100; BMI 28.3
--- NOTE | 2020-02-26 | PATH_ITS ---
[facility] Accession Number: [id number] . 01 Material submitted: . PART A: sigmoid colon - SIGMOID COLON PART B: anastomosis - ANASTOMOSIS RINGS PART C: appendix - APPENDIX . 01 Clinical history: . CONSTIPATION/ABD PAIN 5-9/10 NAUSEA X3 DAYS . 01 Diagnosis: A. Sigmoid Colon, Sigmoid Colectomy: Segment of colon with transmural involvement by endometriosis, forming a 5 cm mass; see Comment and References. One of 14 lymph nodes focally involved by endometriosis. Serositis. No endometriosis identified at surgical margins. Negative for dysplasia, atypical hyperplasia or malignancy. . B. Anastomotic Rings, Resection: Segments of colonic tissue with no diagnostic abnormality. Negative for dysplasia or malignancy. . C. Appendix, Appendectomy: Appendix with transmural involvement by endometriosis. Serositis. No evidence of endometriosis at surgical margin. No evidence of malignancy. [facility] 03/04/2020 1020 Local . 01 Comment: The overall features are consistent with deep infiltrating endometriosis. Lymph node involvment by endometriosis has been described in this setting, and in some studies was seen in greater than 40% of cases. . As part of routine quality control manager, Drs. Porter and Celine have reviewed slides A8 and C2 of this case, and agree with the diagnosis of endometriosis. The finding of endometriosis was discussed between Dr. Gonzalez and Dr. Paris on 03/01/20. . References: 1. Josette Boland, Gary M, Edgar G, Nabila P, Nabila S, Angélica S, Michael L, Edgar D. Deep endometriosis with pericolic lymph node involvement: a case report and literature review. World J Gastroenterol. 2014 Nov 15;20(21):6686-9. PMID: [id number]. . 2. Gary GRACIELA, Lyndsey C, Chris I, Dom V. Lymph node involvement and lymphovascular invasion in deep infiltrating rectosigmoid endometriosis. [employer]. 2008 October;89(5):2580-8451. PMID: [id number]. . 01 Electronically signed: . Vito Paris MD, PhD, Pathologist NPI- [id number] . 01 Gross description: . A. Received in formalin, labeled sigmoid colon, is a 15 cm in length by 5.2 cm in circumference portion of colon with a suture designated proximal. Proximal and distal margins are stapled. The specimen has been previously partially opened. The serosa is santana-pink and smooth with fibrinous adhesions and a firm area of serosal puckering (inked blue). There is a moderate amount of attached mesenteric adipose tissue. Opening reveals a 5.0 x 2.5 cm firm nodular mass located 6 cm from the proximal margin and 5 cm from the distal margin. Sectioning reveals extension through the muscularis into the underlying adipose tissue to a maximum depth of 2.5 cm, coming to within 4.5 cm from the nearest mesenteric margin. The underlying muscularis is fibrotic and thickened and the submucosa is focally edematous. There is a 4.0 x 3.0 cm area of submucosal tattooing located 2 cm distal from the mass. Remaining mucosa is santana-pink with normal mucosal folds and the wall thickness ranges from 0.2 to 0.5 cm. The lumen proximal to the mass is dilated up to 10.5 cm in circumference. Sectioning through the attached adipose tissue reveals multiple candidate lymph nodes ranging from 0.2 to 1.0 cm. Also received is an additional 4.0 cm in length by 4.0 cm in diameter portion of colon with one stapled margin and one opened margin. The serosa is santana-pink and smooth. Opening reveals santana mucosa with normal mucosal folds. The wall thickness measures 0.2 cm. Packing Clerk sections are submitted. . A1: loss prevention representative perpendicular sections of proximal margin (blue). A2: loss prevention representative perpendicular sections of distal margin with adjacent tattooing (black). A3: loss prevention representative perpendicular section of closest mesenteric margin (blue). A4-A6: full-thickness mass in relation to serosal puckering (blue). A7-A8: additional sections of mass. A9: loss prevention representative submucosal tattooing. A10-A12: intact lymph nodes. A13: additional bowel fragments, loss prevention representative perpendicular margins (stapled - black, open - blue). . B. Received in formalin, labeled anastomosis rings and consists of multiple irregular fragments of bowel ranging from 1.2 to 3.2 cm and measuring 5.0 x 4.5 x 2.0 cm in aggregate. The mucosa is santana-pink and focally hemorrhagic and the wall thickness measures 0.2 cm. Packing Clerk sections are submitted in cassette B1. . C. Received in formalin, labeled appendix, and consist of a 7.5 cm in length by 0.5 cm in diameter vermiform appendix with attached santana -yellow lobulated mesoappendix measuring 8.0 x 1.6 x 1.1 cm. The serosa is santana-pink and smooth. There is a 0.5 x 0.3 cm nodule at the tip with adherent clotted blood, located 6 cm from the stapled margin. Sectioning reveals a santana mucosa and a lumen measuring 0.2 cm in diameter. Packing Clerk sections are submitted. . C1: margin (blue), en face and cross-sections. C2: bisected tip with perforation site. (EA/cmc10 [id number]) /MRV 03/04/2020 1020 Local . 01 Microscopic: . A) Sections are of colonic mucosa with transmural involvment by a proliferation of bland dilated glands invested in a cellular stroma. There is no significant atypia or mititic activity. A CD10 immunohistochemical stain is strongly reactive in the stromal component, consistent with endometriosis; a control stain shows appropriate activity. Additionally, one of 14 lymph nodes has focal subcapsular involvment by endometriosis, also confirmed by CD10 immunoreactivity. . * This test was developed and its performance characteristics determined by [employer]. It has not been cleared or approved by the U.S. Food and Drug Administration. The FDA has determined that such clearance or approval is not necessary. This test is used for clinical purposes. It should not be regarded as investigational or for research. . 01 Pathologist provided ICD-10: K56.609, N80.9 . 01 CPT . 629973, 087419, 471110, J19511 Performed at: [address], [place], [place] [id number] MD Jaswinder Johnson MD Phone: [phone]
[2020-02-26 00:19] LABS: Influenza A - CEPHEID Flu A NEGATIVE (NEGATIVE); Influenza B - CEPHEID Flu B NEGATIVE (NEGATIVE)
[2020-02-26] MEDS: LORazepam 2 MG/ML INJ 0.5 MG IV ×3 (02:26→20:30)
[2020-02-26] MEDS: MORPHINE 2 MG/ML INJ IV (02:27)
[2020-02-26] MEDS: SODIUM CHLORIDE 0.9% 1,000 ML 100 ML IV (05:57)
[2020-02-26] MEDS: LACTATED RINGERS 1,000 ML 42 ML IV ×3 (07:15→11:59)
--- NOTE | 2020-02-26 07:44 | PM.PREOP ---
Pre-operative Note COVID-19 COVID-19 status: Negative Interval Note History & Physical reviewed/Exam performed by Physician: Yes Changes to H&P: No
[2020-02-26] MEDS: PIPERACILLIN-TAZO 3.375 GM/50 ML FROZ.PIGGY IV ×3 (07:50→20:29)
--- NOTE | 2020-02-26 08:34 | SUR.OPER ---
Lithotomy on padded OR bed. [place] Pad Positioner under torso. Head on pillow, arms padded and tucked at sides. Legs secured in padded yellow fins stirrups.
[2020-02-26] MEDS: BUPIVACAINE LIPOSOME 266 MG/20 ML VIAL INJ (08:42)
--- NOTE | 2020-02-26 13:41 | SUR.PHASEI ---
Stable post op report attempted, Yanely to call me back
[2020-02-26] MEDS: FENT 2MCG/ML BUPIV 0.125% EPI 200 MCG/100 ML PLAST..BAG 10 MCG EPIDURAL ×2 (14:19→19:03)
[2020-02-26] MEDS: LACTATED RINGERS 1,000 ML 100 ML IV (14:26)
--- NOTE | 2020-02-26 14:27 | SUR.PHASEI ---
Yanely called back, pt transported up to room 229, left pt with her in stable condition, bed low, locked and SCD's on. at bedside- supportive
--- NOTE | 2020-02-26 14:50 | PC.NURSE ---
Patient to room at 1400 alert, oriented denies nausea and pain, dermatome level at T6, patient reports feeling pressure from T6 down to her toes. Epidural at 10ml/hr, site intact with small amount bloody drainage on dressing.
--- NOTE | 2020-02-26 15:52 | CM.DANOTE ---
DCP Brief assessment: EMR Reviewed: patient is a 34 yr old female who was admitted for a colonoscopy following abdominal pain and N/V/. mass found in Colon and Dr. Gonzalez was planning on doing a Laparotomy today with a possible ileostomy. CM met with patient at the bedside and explained role patient was very sleepy and had just returned from surgery at time of meeting. Patient is Independent at baseline with all ADLs and drives. Patient has been for a year to her [place]. patient was unable to continue with CM/Rn meeting without falling asleep. Cm will follow up with patient tomorrow for detailed D/C plan. I: and self pay Plan: To be determined when patient is more awake and able to participate in D/C planning. Discharge Planning/Care Management CM Discharge Assessment Start: 02/26/20 15:51 Freq: Status: Active Protocol: Document 02/26/20 15:51 HS (Rec: 02/26/20 15:52 HS [id number]) Discharge Planning Assessment Assigned [employer]oples[employer] Programmer elizbaeth Lim RN Advance Directives? No History Provided By Patient,Significant Other Has Patient been admitted in last 30 No days? Prior Living Arrangements House Household Members spouse Type of transporation used prior to Drives own vehicle admit Independent with ADL's Yes Is patient alert and oriented? Yes Caregiver for Another No Discharge Plan Home Whiteboard Updated in Patient Room with Yes name and ext. # of Peoplesoft Programmer Review Status In Process Next Review Type Continued Stay Review
--- NOTE | 2020-02-26 17:36 | PC.NURSE ---
1700- Patient registering a elevated temperature. Patient has the bear hugger on. Bear hugger removed and temp rechecked. See documentation. Patient is tearful and crying at times. Patient states she doesn't feel she needs anything for anxiety at this time. Will monitor.
[2020-02-26] MEDS: KETOROLAC 30 MG/ML VIAL IV (17:57)
--- NOTE | 2020-02-26 19:32 | P.OP_ITS ---
Operative Date/Time/Diagnoses Date of procedure: 02/26/20 Time of procedure: 19:33 Pre-op diagnosis: large bowel obstruction Post-op diagnosis: same Procedure & Clinicians Procedure: exploratory laparotomy sigmoid colectomy diverting loop ileostomy Same procedure as scheduled: Yes Indications: This is a 34-year-old female who over the course of past several weeks has developed a complete large bowel obstruction in her sigmoid colon. Yesterday she was taken for colonoscopy which demonstrated a mass within the distal sigmoid occluding greater than 85% of the circumference. She is brought to the operating room today for an exploratory laparotomy colectomy and diverting ileostomy. Surgeon: Wesley Gonzalez Extractor Operator: Alecia Polanco Anesthesia Type: General Operative Notes Findings: Firm mass within the distal sigmoid consistent with the tattooed location. No evidence of metastatic disease. Specimen(s): other (Sigmoid colon) Estimated Blood Loss (mL): 200 Procedure in detail: Patient was brought to the operating room placed supine on the table after an epidural catheter was placed. Bilateral lower extremity compression devices were applied. General anesthesia was induced and she was intubated with a endotracheal tube. She received 3.375 g of IV Zosyn. She was placed in lithotomy and appropriately padded. Hernandez catheter was sterilely placed. She was prepped and draped in standard fashion. A time-out was performed. A lower midline laparotomy was made. The subcutaneous tissues were divided with electrocautery the fascia was grasped elevated and sharply incised the abdomen was entered atraumatically. Upon entry to the abdomen there were distended loops of small bowel as well as markedly dilated colon. Bookwalter was placed aid with retraction. Inspection of the abdomen was made the liver was free of any obvious metastatic disease there was no evidence of carcinomatosis. Attention was then turned towards the left lower quadrant. The sigmoid colon was extremely dilated and at the distal aspect of the sigmoid colon there was a firm mass that was palpable and there was tattoo ink beneath it as expected. It was very difficult to manipulate the colon given how dilated it was and therefore I made a planned colotomy. Within a segment of the sigmoid colon that would be included within the resection a pursestring suture was placed with silk and then a colotomy was made and this allowed us to decompress the air and some of the liquid within the colon and made it much more manageable. The sigmoid colon was mobilized off its lateral wall attachments and the dissection was continued along the white line of Toldt towards the splenic flexure using electorcautery. Attention was turned to the medial aspect of the sigmoid colon. The aorta was identified and off the aorta the GISSEL was palpated within the mesentery to the sigmoid colon. The mesentery was skeletoni zed at the level of the GISSEL. Flipping the colon back over the ureter was identified laterally its course traced and its identity verified by its vermiculation and was protected posteriorly out of harm's way. The GISSEL pedicle was isolated and tied twice proximally and then divided with the LigaSure. I chose a point of proximal division of the colon which was at least 10 cm above the mass to divide the sigmoid colon. The mesentery up to this point was divided and then the colon was divided using the JORDAN stapler blue load. Using the divided sigmoid to as a handle I continued its mobilization towards the pelvis. An on-table sigmoidoscopy was performed to verify the location of the mass and to identify a position that would be well clear of the mass distally. A point approximately 5 cm below the mass was chosen and this was above the peritoneal reflection, the mesentery to this point was divided and then the proximal rectum was divided using the curvilinear TA stapler. The descending colon exteded easily into the pelvis without tension and was well perfused. The staple line of the descending colon was then sharply excised a bowel clamp was placed across it and then a using a 3 0 Prolene a pursestring suture was formed a 29 EEA anvil was placed within the lumen. The EEA sizer was inserted into the rectum fit comfortably and then the stapler was placed into the rectum and its point deployed. Under direct visualization the anvil and the spike were joined carefully to ensure that there were no extraneous content between the two and then the stapler was fired. Upon withdrawing the stapler a snagging was felt the stapler was inspected and the proximal donut was not intact the distal donut was. A leak test was performed and there was an obvious large leak and there was a significant rent of at least 2 cm length on the proximal side of the anastomosis. I inspected the rent and considered closing the rent primarily however I was concerned that I might narrow the anastomosis and there was still length on the rectal side. I therefore excised the anastomosis and closed the distal limb in a running fashion using 3 0 PDS suture. Again a pursestring was formed in the proximal limb and this time I denuded as much nathan colonic tissue as I safely could to improve the anastomosis. In addition I placed 3 additional sutures around the anvil to better approximate the tissue around the anvil shaft. There was a significant size discrepancy between the very dilated proximal and the normal size distal lumens as result of her chronic obstruction. The stapler was then reinserted into the rectum its point was deployed and then the anvil and stapler were mated and connected under direct visualization. The stapler was withdrawn smoothly the anastomotic donuts were inspected and they were both intact. A leak test was then performed again and this demonstrated a very small leak on the medial aspect of the anastomosis. Using silk suture I closed the site of leak and then I placed a tail of adjacent omentum over the anastomosis and secured this in place to reinforce the repair. A third leak leak test was performed and there was no evidence of leak with insufflation under water. The anastamosis was very difficult given the significant size discrepency between the proximal and distal limbs and because I was unable to bowel prep her prior to the operation I was concerned about the significant risk of anastomatic leak and thought it would be most prudent to divert her. Over the right rectus muscle a circular incision was made, the subcutaneous tissue divided the anterior sheath was divided in a cruciate of fashion the posterior sheath was incised vertically and 2 fingers easily passed through the abdominal wall. Chose a point approximately 15 cm back from the ileocecal valve to bring up a loop of ileum. A window within the mesentery was made here red rubber catheter was then placed across the mesentery and used to bring up a loop of small bowel. The proximal and distal ends were identified and double checked. Made a transverse incision on the loop of small bowel and then a brooked ileostomy was formed using Vicryl sutures to tack both limbs to the skin and subcutaneous tissue. Ileostomy appeared to be well perfused. The abdomen was irrigated with 4 L of sterile saline and returned clear a 19 Citizen [place] Desean drain was placed into the abdomen and near the anastomosis. 20 mL of Exparel were injected into the peritoneum. The fascia was then closed in a running fashion from above and below using 1. PDS suture the subcutaneous tissue reapproximated with 3 0 Vicryl and the skin closed with ran. Who the ostomy appliance was placed and the abdomen was dressed with gauze and Medipore tape patient emerged from anesthesia and was transferred to the recovery room in stable condition. Complications: none Post-operative Disposition: ICU
[2020-02-27] VITALS (12 sets, daily range): BP systolic 91–106; BP diastolic 53–60; PULSE 88–102; RESP 16–18; TEMP 36.2–37.3; O2SAT 95–99
[2020-02-27] MEDS: LORazepam 2 MG/ML INJ 0.5 MG IV ×2 (00:08→20:39)
[2020-02-27] MEDS: LACTATED RINGERS 1,000 ML 100 ML IV ×3 (01:22→22:08)
[2020-02-27] MEDS: PIPERACILLIN-TAZO 3.375 GM/50 ML FROZ.PIGGY IV ×4 (01:25→20:39)
[2020-02-27] MEDS: FENT 2MCG/ML BUPIV 0.125% EPI 200 MCG/100 ML PLAST..BAG 10 MCG EPIDURAL ×2 (02:59→12:39)
[2020-02-27 05:10] LABS: Add Manual Diff / Slide Review NO; Basophils Absolute Auto 0 /uL (0-100); Basophils Percent Auto 0.2 % (0-2); Eosinophils Absolute Auto 0 /uL (0-450); Eosinophils Percent Auto 0.1 % (2-4); Hematocrit 31.4 % (36-46); Hemoglobin 10.7 g/dL (12.0-16.0); Lymphocytes Absolute Auto 1000 /uL (1100-4500); Lymphocytes Percent Auto 9.6 % (25-40); Mean Corpuscular HGB Conc 33.9 % (30-36); Mean Corpuscular Hemoglobin 29.6 PG (26-34); Mean Corpuscular Volume 87.2 fL (80-100); Monocytes Absolute Auto 800 /uL (0-900); Monocytes Percent Auto 7.4 % (3-14); Neutrophils Absolute Auto 8700 /uL (1500-7000); Neutrophils Percent Auto 82.7 % (50-75); Platelet Count 195 X10^3/uL (150-400); Red Cell Distribution Width 12.2 % (11.6-14.8); White Blood Cell Count 10.5 X10^3/uL (4.5-11.0)
[2020-02-27 05:21] LABS: BUN Creatinine Ratio 15.9 (6-22); Blood Urea Nitrogen 11 mg/dL (7-17); Calcium 8.1 mg/dL (8.4-10.2); Carbon Dioxide 27 mmol/L (22-32); Chloride 104 mmol/L (98-107); Estimated Glomerular Filt Rate > 60.0 mL/min (>60); Glucose 113 mg/dL (70-100); HEMOLYSIS < 15 (0-50); Magnesium 1.9 mg/dL (1.6-2.3); Phosphorous 3.8 mg/dL (2.5-4.5); Potassium 4.5 mmol/L (3.4-5.1); Sodium 135 mmol/L (137-145)
[2020-02-27] MEDS: KETOROLAC 30 MG/ML VIAL IV ×4 (06:03→17:45)
--- NOTE | 2020-02-27 08:28 | PM.PNPO.1 ---
Subjective Subjective Date Patient Seen: 02/27/20 Time Patient Seen: 08:28 Interval history: No acute overnight events. Epidural is working well. No nausea, nasogastric tube content is clear and scant ileostomy has some output. Exam Vital Signs (past 8 hours): - 02/27/20 02:00 02/27/20 04:00 02/27/20 06:00 Temperature 97.7 F Pulse Rate 88 Respiratory Rate 16 Blood Pressure 101/56 L Pulse Oximetry 95 97 96 02/27/20 08:00 Temperature 98.4 F Pulse Rate 101 H Respiratory Rate 16 Blood Pressure 95/53 L Pulse Oximetry 98 Oxygen Delivery Method Room Air Oxygen Flow Rate 0 Narrative Exam Narrative: General adult female alert oriented tearful Chest nonlabored respiration Abdomen soft minimally distended ileostomy viable and productive. Midline incision dressing clean dry intact. GREGORIO drain serosanguineous output. Objective Labs Result Diagrams: 02/27/20 04:45 02/27/20 04:45 Labs: Laboratory Results - last 24 hr 02/27/20 02/27/20 02/27/20 00:15 04:45 04:45 WBC 10.5 RBC 3.60 L Hgb 10.7 L Hct 31.4 L MCV 87.2 MCH 29.6 MCHC 33.9 RDW 12.2 Plt Count 195 Neut % (Auto) 82.7 H Lymph % (Auto) 9.6 L Wilbarger % (Auto) 7.4 Eos % (Auto) 0.1 L Baso % (Auto) 0.2 Neut # (Auto) 8700 H Lymph # (Auto) 1000 L Wilbarger # (Auto) 800 Eos # (Auto) 0 Baso # (Auto) 0 Sodium 135 L Potassium 4.5 Chloride 104 Carbon Dioxide 27 BUN 11 Creatinine 0.69 Estimated GFR > 60.0 BUN/Creatinine Ratio 15.9 Glucose 113 H Calcium 8.1 L Phosphorus 3.8 Magnesium 1.9 Nasal Screen MRSA (PCR) Negative for mrsa Assessment & Plan Post-op Postoperative Procedures: Procedures Operation Date: 02/25/20 15:45 Actual Procedures Side Surgeon p Colonoscopy with biospies Left Wesley Gonzalez MD Operation Date: 02/26/20 07:45 Actual Procedures Side Surgeon p Exploratory Laparotomy GEN, BOWEL RESECTION, LOOP ILEOSTOMY, INCIDENTAL APPENDECTOMY Not Applicable Wesley Gonzalez MD Postoperative plan narrative: 34-year-old female postoperative day 1 after sigmoid colectomy with diverting loop ileostomy for complete large bowel obstruction. She is overall doing well. Plan -remove nasogastric tube start clear liquid diet as tolerated -out of bed to chair ambulate physical therapy -SCDs will start prophylactic Lovenox tomorrow -continue Zosyn for unprepped colectomy and anastamosis -ostomy teaching -continue agrawal until epidural discontinued Quality VTE Deep Vein Thrombosis/Pulmonary Embolism Present on Admission: No
--- NOTE | 2020-02-27 10:12 | PC.NURSE ---
Am Shift Dr Gonzalez into see Pt, d/c orders written. Pain control well managed. IV removed, Pt declined IV Potassium, I am getting the heck out of here this AM Education provided, arrived and d/c teaching given.
--- NOTE | 2020-02-27 10:41 | PT.IIE ---
Current Diagnoses Unspecified intestinal obstruction, unspecified as to partial versus complete obstruction (02/25/20) Surgery Performed Operation Date: 02/25/20 15:45 Actual Procedures p Colonoscopy with biospies(Left) - Wesley Gonzalez MD Operation Date: 02/26/20 07:45 Actual Procedures p Exploratory Laparotomy GEN, BOWEL RESECTION, LOOP ILEOSTOMY, INCIDENTAL APPENDECTOMY(Not Applicable) - Wesley Gonzalez MD Medical History (Last Reviewed 02/25/20 @ 21:31 by Lizbet Barlow PA-C) Chicken pox (Resolved ~1995) Vitamin D deficiency (Acute) Physical Therapy Inpatient Evaluation/Re-Eval M1 PT/OT-IP Prior Functional Status Start: 02/27/20 12:59 Freq: NEEDED Status: Active Protocol: Document 02/27/20 10:41 AB (Rec: 02/27/20 13:13 AB [email or web address]) Medical Review Prior Functional Status Medical History Reviewed Yes Communication able to make needs known Mobility and Gait Pt stated that she is independent with all mobilities and ambulation without AD Social History Household Members spouse Living Arrangements House Number of Floors (Floors) One Floor Number of Stairs To Enter/Railing? 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 PT-IP Current Condition Start: 02/27/20 12:59 Freq: NEEDED Status: Active Protocol: Document 02/27/20 10:41 AB (Rec: 02/27/20 13:13 AB [id number]) Physical Therapy Current Condition Current Condition Evaluation Date 02/27/20 Treatment Diagnosis large bowel obstruction s/p colectomy/ileostomy; difficulty in walking Onset Date 02/25/20 Precautions Abdominal Surgery Precautions Log Roll,Lifting Restrictions, Gait Belt above Incisional Area M3 PT-IP Subjective Start: 02/27/20 12:59 Freq: NEEDED Status: Active Protocol: Document 02/27/20 10:41 AB (Rec: 02/27/20 13:13 AB [id number]) Subjective Physical Therapy Visit Type Type Initial Evaluation Visit Start Time 10:41 Visit Stop Time 11:15 Total Visit Minutes 34 Number of WOMEN'S GARMENT FITTER Visits 0 Physical Therapy Visit Comments Patient Comments pt is agreeable to do PT Therapy Pain Assessment Pain When Pain Assessed At Rest Pain Present Pain Present Pain Reported Location Abdomen Intensity 4 Scale Used Numeric (0 - 10) Pain Management Techniques Distraction,Modification of Treatment,Re-positioning, Timing of Activity with Medications M4 PT-IP Mobility and Gait Start: 02/27/20 12:59 Freq: NEEDED Status: Active Protocol: Document 02/27/20 10:41 AB (Rec: 02/27/20 13:13 AB [id number]) PT-Bed Mobility Assessment Rolling Type of Rolling Log Rolling Level of Assist Maximal Assistance,2 Person Assistance Supine to Sit Supine to Sit Moderate Assistance,2 Person Assistance Sit to Supine Sit to Supine Maximum Assistance,2 Person Assistance PT-Transfer Assessment Sit to and From Stand Sit to and from Stand Maximum Assistance,2 Person Assistance,Use of Upper Extremities Comments Mobility Comments BP supine: 98/55. educated pt on abdominal precautions and log roll bed mbility. completed supine to sit max A and max cues. pt with RLE numbness and decrease strength and motor control. pt was able to sit on EOB min A. pt c/o slight neausea. completed sit to stand max A x 2 and max cues and c/o lightheadedness. cued for R quad activation. instructed to sit down requiring max A x 2 for controlled descent. BP checked: 68/35. assisted pt back in bed max A x 2 and max cues. positioned pt in bed. call light and table placed within reach. Nurse and NAC in room to assist. instructed pt to do ankle pumps, quads sets and heel slides in bed. pt understood and agreed. Gait Assessment Comments Gait Comments unable at this time PT-Balance Assessment Sitting Balance and Reactions Static Sitting Balance Ability Good Dynamic Sitting Balance Ability Fair Standing Balance and Reactions Static Standing Balance Ability Poor Dynamic Standing Balance Ability Poor Device Used FWW M5 PT-IP Objective Assessments Start: 02/27/20 12:59 Freq: NEEDED Status: Active Protocol: Document 02/27/20 10:41 AB (Rec: 02/27/20 13:13 AB [email or web address]) Orientation Orientation/Cognition Level of Alertness Alert Orientation Name,Place,Situation Language Function Ability No Deficits Noted Safety Awareness Understands Safety Issues Memory Description No Deficits Noted Gross Range of Motion Lower Extremity ROM Assessment Within Functional Limits Strength Lower Extremity Strength Assessment Right Impaired Hip 3-/5 Knee 3+/5 Coordination Assessment Gross Coordination Gross Coordination WNL Sensation Assessment Sensation Gross Sensation Right LE Impaired Light Touch Impaired Proprioception (Position) Impaired Sensation Description Numbness M6 PT-IP Treatment Start: 02/27/20 12:59 Freq: NEEDED Status: Active Protocol: Document 02/27/20 10:41 AB (Rec: 02/27/20 13:13 AB [email or web address]) Physical Therapy Treatment Education Education Provided Precautions,Safety M7 PT-IP Assessment and Plan Start: 02/27/20 12:59 Freq: NEEDED Status: Active Protocol: Document 02/27/20 10:41 AB (Rec: 02/27/20 13:13 AB [email or web address]) PT Summary Assessment and Plan Potential Rehabilitation Potential Good Status of Condition at Evaluation Evolving Summary Impairments Pain,ROM,Strength,Balance, Coordination,Sensation,Tone, Cognition,Bed Mobility, Transfers,Gait,Activity Tolerance Assessment Summary pt requiring 2 person assist with mobility and unable to ambulate at this time with decrease in BP with upright activities. d/c plan depending on progress and will conduct caregiver training when appropriate. will require further assessment to determine safe d/c but pt has good potential to improve during hospital stay. Goals Bed Mobility Goal Independent Transfer Goal Independent,Front Wheeled Walker Gait Goal Independent,Front Wheel Walker Gait Distance 50 Other Goals improve ambulation without AD 200 ft SBA up/down 2 steps without AD sBA Days to Meet Goals 10 Frequency of Treatment Frequency Of Treatment Once a Day Treatment Plan Physical Therapy Treatment Plan Bed Mobility Training,Transfer Training,Gait Training, Therapeutic Exercise,Balance Retraining,Post Op Education, Discharge Planning,Hot or Cold Pack,Neuromuscular Re-ed, Coordination Retraining Recommendations To Nursing Amount of Assist Needed PT/OT Assist Only,Mechanical Lift Discharge Recommendations PT Discharge Recommendations Home with Assistance,Home Health,SNF Rehab Other Discharge Recommendations depending on progress: SNF vs home with assist and HHPT Equipment Needed for Home Before FWW if not safe without AD Discharge Transportation Needs at Discharge Private Vehicle,Wheelchair/ Cabulance
--- NOTE | 2020-02-27 13:52 | PC.NURSE ---
Addendum entered by Melania Lennon R.N. 02/27/20 14:47: Pt able to get up to chair @ 1400, BP more stable. Tolerated well. Reports that pain is controlled with epidural, infusing @ 10mls/hr , LR @ 100 L hand. Sitting up to chair. 2 person assist with FWW, just d/t previous attempt. Original Note: Am shift Pt feeling better, pain controlled with epidural, infusing @ 10ml/hr currently. No demand doses given. NG removed by Dr leblanc at bedside. No Nausea, hypoactive BT's. Colostomy with liquid green brown stooling noted. Desean drain with serosang output. PT into see Patient and pt was able to stand and bedside, but became hypotensive, and session was cut short. BP 60/40's upon standing. BP soft at start of shift, and have been since admission. Pain rated 2/10 , Clear liq diet ok, though minimal intake d/t patient choice, not nauseated, but I feel like I could be really easily and bedside. Pt tearful off and on this shift, and education provided about N.O sertraline to start tonight. Reminded Pt to utilize PRN ativan and allowed questions about new ostomy. Pt has many concerns about being a newlywed, and attempting to get this year. That has to wait I guess Supportive at bedside throughout shift. Continue MARBLE MASON and Pt eager to continue attempts at mobilization.
--- NOTE | 2020-02-27 15:30 | OT.IP.EVAL ---
Current Diagnoses Unspecified intestinal obstruction, unspecified as to partial versus complete obstruction (02/25/20) Surgery Performed Operation Date: 02/25/20 15:45 Actual Procedures p Colonoscopy with biospies(Left) - Wesley Gonzalez MD Operation Date: 02/26/20 07:45 Actual Procedures p Exploratory Laparotomy GEN, BOWEL RESECTION, LOOP ILEOSTOMY, INCIDENTAL APPENDECTOMY(Not Applicable) - Wesley Gonzalez MD Past Medical History (Last Reviewed 02/25/20 @ 21:31 by Lizbet Barlow PA-C) Chicken pox (Resolved ~1995) Vitamin D deficiency (Acute) Occupational Therapy Inpatient Evaluation/Re-Eval M1 PT/OT-IP Prior Functional Status Start: 02/27/20 17:22 Freq: NEEDED Status: Active Protocol: Document 02/27/20 15:30 [facility] (Rec: 02/27/20 17:50 [facility] [id number]) Medical Review Prior Functional Status Medical History Reviewed Yes Communication able to make needs known Mobility and Gait Pt stated that she is independent with all mobilities and ambulation without AD Activities of Daily Living and IADL's Pt completely independent with all needs 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 Social History Household Members spouse Living Arrangements House Number of Floors (Floors) One Floor Number of Stairs To Enter/Railing? 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-IP Current Condition Start: 02/27/20 17:22 Freq: Status: Active Protocol: Document 02/27/20 15:30 [facility] (Rec: 02/27/20 17:50 [facility] [id number]) Occupational Therapy Current Condition Current Condition Evaluation Date 02/27/20 Treatment Diagnosis Large Bowel Obstruction s/p colectomy/ileostomy, decreased mobility Diagnosis Onset Date 02/25/20 Post Operative Precautions Abdominal Surgery Precautions Log Roll,Lifting Restrictions, Gait Belt above Incisional Area M3 OT- IP Subjective and Pain Start: 02/27/20 17:22 Freq: Status: Active Protocol: Document 02/27/20 15:30 [facility] (Rec: 02/27/20 17:50 [facility] [id number]) OT- Subjective Occupational Therapy Visit Type Type Initial Evaluation Visit Start Time 15:30 Visit Stop Time 15:57 Total Visit Minutes 27 Occupational Therapy Visit Comments Patient Comments Pt agreed to get up. Pt's in the room. Pt was a bit tearful and feeling upset that she thought that she would be doing better. Patient/Caregiver Goals To get better and go home soon . OT Pain Assessment Pain When Pain Assessed During Mobility Pain Present Pain Present Pain Reported M4 OT- IP ADL's Start: 02/27/20 17:22 Freq: Status: Active Protocol: Document 02/27/20 15:30 [facility] (Rec: 02/27/20 17:50 [facility] [id number]) OT [id number] Comments OT Self-Feeding Comments NOt at meal time, just clear liquids at this time. OT ADL-Grooming Comments OT Grooming Comments NOt performed. OT ADL-Oral Care Comments Oral Care Comments Not performed. OT ADL-Dressing General Eval Lower Body Dressing Ability Maximum Assistance Comments OT Dressing Comments Able to initiate education of LB dressing equipment needs for pt. OT ADL-Toileting General Evaluation Toileting Ability Total Assistance Comments OT Toileting Comments Catheter in place. OT ADL-Bathing Comments OT Bathing Comments NOt at this time. Educated pt pending her progress may have to use a tub bench for showering needs. M5 OT- IP IADL's Start: 02/27/20 17:22 Freq: Status: Active Protocol: Document 02/27/20 15:30 [facility] (Rec: 02/27/20 17:50 [facility] [id number]) OT-Instrumental Activities of Daily Living Home Safety Awareness Awareness of Need for Assistance at Home Good Awareness Home Safety Comments At this time pt will be dependent on her family to assist her with all ADl and IADl needs. M6 OT- IP Functional Cognition Start: 02/27/20 17:22 Freq: Status: Active Protocol: Document 02/27/20 15:30 [facility] (Rec: 02/27/20 17:50 [facility] [id number]) Cognitive Factors Limiting Selfcare Function Cognitive Ability Level of Alertness Alert Patient Orientation Name,Place,Situation Attention Span Ability Capable of Focused Attention, Capable of Sustained Attention Ability to Follow Commands Able to Follow One Step Commands Cognitive Comments Cognitive Assessment Comments Pt able to follow commands for mobility and LB dressing training at this time. Pt a bit tearful on her situation and educated her that she had a major surgery and will need time to recover. Pt has a supportive . OT- Vision and Hearing OT- Hearing Assessment OT- Hearing Assessment WFL OT- Vision Assessment Visual Acuity WFL M7 OT- IP Mobility and Balance Start: 02/27/20 17:22 Freq: Status: Active Protocol: Document 02/27/20 15:30 [facility] (Rec: 02/27/20 17:50 [facility] [id number]) OT-Transfer Assessment Sit to and From Stand Sit to and from Stand Maximum Assistance,1 Person Assistance Comments Mobility Comments Pt needing MAX A X 1 to stand to FWW and pt legs buckling and getting dizzy and assist to lower pt back down. BP after standing 80/49 and after reclining pt back 90/51 and pt states not feeling dizzy anymore. Nursing notified. OT- Balance Assessment Sitting Balance and Reactions Static Sitting Balance Ability Good Standing Balance and Reactions Static Standing Balance Ability Poor M8 OT- IP Objective Assessments Start: 02/27/20 17:22 Freq: Status: Active Protocol: Document 02/27/20 15:30 [facility] (Rec: 02/27/20 17:50 [facility] [id number]) OT Gross Range of Motion Upper Extremity Range of Motion Assessment Within Functional Limits OT Strength Upper Extremity Strength Assessment Within Functional Limits M9 OT- IP Assessment and Plan Start: 02/27/20 17:22 Freq: Status: Active Protocol: Document 02/27/20 15:30 [facility] (Rec: 02/27/20 17:50 [facility] [id number]) OT Summary Assessment and Plan Potential Rehabilitation Potential Good Analytic Complexity at Evaluation Low Summary OT Impairments Pain,Strength,Balance, Functional Mobility,Grooming, Dressing,Toileting,Bathing, Toilet Transfers,Shower Transfers,Activity Tolerance Progress Towards Goals Slow Progress due to Pain,Slow Progress due to Medical Issues,Slow Progress due to Activity Tolerance Assessment Summary Pt low complexity with s/p colectomy/ileostomy after large bowel obstruction and now needing MAX A x1 to stand and legs are buckling. Pt also needing extensive assist for ADL's at this time. Pending progress and status, pt may benefit form a skilled rehab prior to going home. Otherwise pending caregiver training and progress , possibility to go home. Goals Grooming Goal Independent Dressing Goal Independent Toileting Goal Independent Bathing Goal Independent Toilet Transfer Goal Independent Shower Transfer Goal Independent Patient/Caregiver Education Goal Demonstrate Post-Op Precautions,Caregiver Independent Assisting Patient Days to Meet Goals 20 Frequency of Treatment Frequency Of Treatment Once a Day Treatment Plan OT Treatment Plan ADL Training,Functional Mobility,Patient/Family Education,Discharge Planning Other Treatment Recommendations and Next Transfer to [facility] with MODA X2. Treatment Focus Discharge Recommendations OT Discharge Recommendations SNF Rehab Other Discharge Recommendations Pending caregiver training and progress possible to go home with assist. Home Equipment Needs To be determined as pt progresses. Transportation Needs at Discharge Wheelchair/Cabulance
--- NOTE | 2020-02-27 16:42 | PC.NURSE ---
Ostomy Nurse Consult Note Kym sitting up in chair,she just finished with PT. Her is at her bed side. She was teary yet grateful that she will learn how to take care of herself and said she likes to read and learn things. She has looked at her stoma already and so has her . I reviewed with them a plan for learning how to take care of her stoma and gave her lots of information, [employer] New Patient Guide, [employer] Nutrition Guide. I explained and showed them pictures of an ileosotmy and the digested system. I explained that Care Management,PT, Dietary and Nursing work together as a team with her surgeons and we will understand that she has had major surgery and now an ostomy and we will help her regain her independence. I told her she and her and mother will all learn how to care for the stoma and change the appliance. She and her seem to be a good team. He is in the [place] and will be leaving for a short period of time but her mother will be able to stay with her. Her mother will be here tomorrow with her. Her stoma is edematous, pinkish translucent. She has liquid green effluent. I did not remove the appliance today. The bridge is in place. Her GREGORIO drain is draining serosanguenous drainage. Her mid-line incision dressing is dry and intact. Her agrawal is draining straw colored urine and she still has the epidural. She is tolerating sips of fluid. I will return tomorrow mid morning to continue teaching and stoma assessment.
--- NOTE | 2020-02-27 19:05 | PC.NURSE ---
1900- Dr. Arnold here to see patient. Right leg feels very heavy after taking two patient admin doses from the epidural. Patient reassured that the epidural is working as expected. Plan to discontinue epidural after a trial in the AM. RN will turn off the epidural at 6am and medicate with po pain med to see if patient can tolerate the pain without the epidural. After a few hours if patient is controlled on po meds then the MD will discontinue the catheter. Patient verbalized understanding of the plan. Dr. Arnold aware of soft Blood Pressures.
[2020-02-27] MEDS: SERTRALINE 50 MG TABLET 100 MG PO (20:39)
[2020-02-27] MEDS: FENT 2MCG/ML BUPIV 0.125% EPI 200 MCG/100 ML PLAST..BAG 6 MCG EPIDURAL (20:40)
[2020-02-28] VITALS (16 sets, daily range): BP systolic 70–109; BP diastolic 35–69; PULSE 83–118; RESP 16–22; TEMP 36.3–37.9; O2SAT 92–100
[2020-02-28] MEDS: KETOROLAC 30 MG/ML VIAL IV ×5 (00:22→23:44)
[2020-02-28] MEDS: LORazepam 2 MG/ML INJ 0.5 MG IV ×4 (00:22→23:42)
[2020-02-28] MEDS: PIPERACILLIN-TAZO 3.375 GM/50 ML FROZ.PIGGY IV ×4 (01:56→20:28)
--- NOTE | 2020-02-28 06:30 | PC.NURSE ---
Pt. c/o feeling a lot of pressure in her rectum, felt like she has to have a bm. Dangle at bedside for a couple minutes, pt felt a little dizzy. B/P checked prior to standing which showed 96/58, HR-120, when sitting up B/P down to 70/35 HR-118. Pt. had the urge to have a bm and does not want to use the bedpan, so got her a BSC. Pt. sat on the BSC and passed a large soft formed brown stool and felt relieved after. Pt. tolerated using the BSC despite low B/P. B/P checked again when pt. got back to bed with 101/58 B/P , HR-106. At 0600, epidural turned off and place on standby, administered her scheduled Toradol. Pt. resting currently with a pain of 3/10. Will monitor her pain level.
[2020-02-28 06:39] LABS: Add Manual Diff / Slide Review NO; Basophils Absolute Auto 0 /uL (0-100); Basophils Percent Auto 0.3 % (0-2); Eosinophils Absolute Auto 0 /uL (0-450); Eosinophils Percent Auto 0.2 % (2-4); Hematocrit 33.3 % (36-46); Hemoglobin 11.5 g/dL (12.0-16.0); Lymphocytes Absolute Auto 600 /uL (1100-4500); Lymphocytes Percent Auto 3.8 % (25-40); Mean Corpuscular HGB Conc 34.6 % (30-36); Mean Corpuscular Volume 86.7 fL (80-100); Monocytes Absolute Auto 1100 /uL (0-900); Monocytes Percent Auto 7.6 % (3-14); Neutrophils Absolute Auto 13000 /uL (1500-7000); Neutrophils Percent Auto 88.1 % (50-75); Platelet Count 228 X10^3/uL (150-400); Red Blood Cell Count 3.84 X10^6/uL (4.0-5.2); Red Cell Distribution Width 12.4 % (11.6-14.8); White Blood Cell Count 14.8 X10^3/uL (4.5-11.0)
[2020-02-28 06:42] LABS: BUN Creatinine Ratio 13.6 (6-22); Blood Urea Nitrogen 12 mg/dL (7-17); Calcium 8.4 mg/dL (8.4-10.2); Carbon Dioxide 27 mmol/L (22-32); Chloride 102 mmol/L (98-107); Estimated Glomerular Filt Rate > 60.0 mL/min (>60); Glucose 110 mg/dL (70-100); HEMOLYSIS < 15 (0-50); Phosphorous 2.9 mg/dL (2.5-4.5); Sodium 133 mmol/L (137-145)
[2020-02-28] MEDS: HYDROMORPHONE 0.5 MG INJ IV (07:49)
--- NOTE | 2020-02-28 08:38 | PC.NURSE ---
Am shift Into see Pt at shift change, Pt is tearful, moaning. Pain is up to a 9/10 Pt reporting increased nausea, elected to give dilaudid. Followed by Ativan for effective relief of pain. Pt a little drowsy after medication, wakes to voice, and able to stand with 1PA/gait belt to [facility] for flatus. Up to chair, Pt napping off and on, pain reassed 08/18
--- NOTE | 2020-02-28 09:55 | PM.PN.1 ---
Subjective Subjective Date Patient Seen: 02/28/20 Time Patient Seen: 09:55 Interval history: No acute events overnight. Epidural was turned off at 6AM, and she is having significantly more pain and pain-associated nausea since then. She has tried to ambulate, but finds that one of her legs is a bit weak although she is able to walk to the toilet and to the bed from her chair. Exam Vital Signs (past 8 hours): - 02/28/20 04:00 02/28/20 04:30 02/28/20 05:00 Temperature 98.6 F Pulse Rate 118 H Respiratory Rate 16 Blood Pressure 104/60 96/58 L 70/35 L Pulse Oximetry 99 02/28/20 05:15 02/28/20 08:00 02/28/20 08:13 Temperature 98.7 F Pulse Rate 106 H 104 H Respiratory Rate 22 Blood Pressure 101/58 L 100/56 L Pulse Oximetry 98 94 Oxygen Delivery Method Room Air Oxygen Flow Rate 0 Narrative Exam Narrative: GENERAL: Alert but drowsy appearing. Mild distress due to nausea and pain. Appears stated age. Answers questions promptly and appropriately. Vital signs noted. HENT: Normocephalic, atraumatic. Hearing intact. EYES: Conjunctiva pink, sclera white, no periorbital swelling. CARDIOVASCULAR: Regular rate. No pedal edema. RESPIRATORY: Non-tachypneic, breathing comfortably on room air. GASTROINTESTINAL: Abdomen soft, mildly distended, incision c/d/i; GREGORIO drain serosanguinous and full; ostomy p/p/p with copious clear bile tinged output; moderately ttp MUSCULOSKELETAL: Equal tone and mass bilaterally. SKIN: Warm, dry, soft, appropriate color for ethnicity. No other lesions, rashes, or wounds. PSYCH: Appropriate affect and mood. Objective Labs Result Diagrams: 02/28/20 06:20 02/28/20 06:20 Labs: Laboratory Results - last 24 hr 02/28/20 02/28/20 06:20 06:20 WBC 14.8 H RBC 3.84 L Hgb 11.5 L Hct 33.3 L MCV 86.7 MCH 30.0 MCHC 34.6 RDW 12.4 Plt Count 228 Neut % (Auto) 88.1 H Lymph % (Auto) 3.8 L [place] % (Auto) 7.6 Eos % (Auto) 0.2 L Baso % (Auto) 0.3 Neut # (Auto) 71465 H Lymph # (Auto) 600 L [place] # (Auto) 1100 H Eos # (Auto) 0 Baso # (Auto) 0 Sodium 133 L Potassium 4.0 Chloride 102 Carbon Dioxide 27 BUN 12 Creatinine 0.88 Estimated GFR > 60.0 BUN/Creatinine Ratio 13.6 Glucose 110 H Calcium 8.4 Phosphorus 2.9 Magnesium 2.0 Assessment & Plan Assessment and plan (1) Large bowel obstruction: Status: Acute (2) Abdominal pain: Qualifiers: Abdominal location: generalized Qualified Code(s): R10.84 - Generalized abdominal pain Status: Acute (3) Ileostomy in place: Status: Acute (4) S/P laparotomy: Status: Acute Assessment & Plan narrative: 34-year-old woman who is postop day 2 from laparotomy, sigmoid colectomy, with primary anastomosis for large bowel obstruction, and diverting ileostomy. She has copious ostomy output and dark urine, which indicates to me that she has return of bowel function but she is getting a bit dehydrated. We will advance her to a full liquid diet. We turned off her epidural this morning, and she had a significant amount of pain and nausea which she feels is not tolerable at this point. I explained to her the importance of ambulating, and she feels that she can probably ambulate with the epidural on at a lower rate. I discussed this with Dr. Arnold, and he is going to restart the epidural at a lower rate. We will keep an eye on how she does. We will start her on daily Lovenox. We will have to stop this prior to epidural removal, which may be tomorrow. Her labs all appear quite appropriate for her clinical situation, although I will keep the antibiotic on today and trend her white blood cell count. She did pass some stool per rectum which is not surprising as she had a full colon that was obstructed prior to surgery which is now reconnected. The patient received ostomy teaching yesterday from Eli Garcia, and this will happen again today per the notes. I had a long discussion with the patient and her regarding all the above. They seemed understand what is going on, and are anxious to find out the pathology results. I told him that we would not know probably until middle or end of next week. Right now the patient's goal is to go home by Sunday or Sunday, but that will depend on getting her ostomy output under control, pain under control without the epidural or IV pain meds, labs looking good, and tolerating a diet. Plan: Ostomy teaching DVT prophylaxis with SCDs and Lovenox Epidural to continue today Advanced to full liquid diet Ambulate as tolerated Keep Hernandez until epidural is out per Dr. Gonzalez Keep antibiotics for today, and follow-up white blood cell count Increase IV fluids until ostomy output is controlled to keep up with hydration COVID-19 COVID-19 status: Negative Result date/Date tested (Pos, Neg/Pending): 02/26/20 Time Spent With Patient Time with patient: 25 - 35 minutes Quality VTE Deep Vein Thrombosis/Pulmonary Embolism Present on Admission: No
[2020-02-28] MEDS: FENT 2MCG/ML BUPIV 0.125% EPI 200 MCG/100 ML PLAST..BAG 6 MCG EPIDURAL ×2 (10:19→22:27)
[2020-02-28] MEDS: LACTATED RINGERS 1,000 ML 100 ML IV ×3 (10:20→20:33)
--- NOTE | 2020-02-28 11:09 | PT.IPTN ---
Current Diagnoses Unspecified intestinal obstruction, unspecified as to partial versus complete obstruction (02/25/20) Generalized abdominal pain (02/25/20) Ileostomy status (02/25/20) Other specified postprocedural states (02/25/20) Surgery Performed Operation Date: 02/25/20 15:45 Actual Procedures p Colonoscopy with biospies(Left) - Wesley Gonzalez MD Operation Date: 02/26/20 07:45 Actual Procedures p Exploratory Laparotomy GEN, BOWEL RESECTION, LOOP ILEOSTOMY, INCIDENTAL APPENDECTOMY(Not Applicable) - Wesley Gonzalez MD Physical Therapy Treatment Note M2 PT-IP Current Condition Start: 02/27/20 12:59 Freq: NEEDED Status: Active Protocol: Document 02/27/20 10:41 AB (Rec: 02/27/20 13:13 AB [id number]) Physical Therapy Current Condition Current Condition Evaluation Date 02/27/20 Treatment Diagnosis large bowel obstruction s/p colectomy/ileostomy; difficulty in walking Onset Date 02/25/20 Precautions Abdominal Surgery Precautions Log Roll,Lifting Restrictions, Gait Belt above Incisional Area M3 PT-IP Subjective Start: 02/27/20 12:59 Freq: NEEDED Status: Active Protocol: Document 02/28/20 10:51 [place] (Rec: 02/28/20 12:33 [place] [id number]) Subjective Physical Therapy Visit Type Type Treatment Note Visit Start Time 10:51 Visit Stop Time 11:09 Total Visit Minutes 18 Number of TONG HOOKER Visits 1 Physical Therapy Visit Comments Patient Comments pt is agreeable to do PT. Pts mom present during treatment. M4 PT-IP Mobility and Gait Start: 02/27/20 12:59 Freq: NEEDED Status: Active Protocol: Document 02/28/20 10:51 [place] (Rec: 02/28/20 12:33 [place] [id number]) PT-Bed Mobility Assessment Rolling Type of Rolling Log Rolling,Roll to Left Level of Assist Contact Guard Assistance,1 Person Assistance Supine to Sit Supine to Sit Contact Guard Assistance,1 Person Assistance,Head of Bed Elevated Scooting Scooting to Edge of Bed Contact Guard Assistance PT-Transfer Assessment Sit to and From Stand Sit to and from Stand Contact Guard Assistance, Minimal Assistance,1 Person Assistance,Use of Upper Extremities Equipment Transfer Assistive Device Front Wheeled Walker Orthotic/Prosthetic Devices or Brace: No Transfers Transfer Destination Chair Transfer Technique pt ambulated w/ FWW Transfer Ability Level of Assist Contact Guard Assistance, Minimal Assistance,1 Person Assistance Comments Mobility Comments Pt in bed upon arrival from therapy and mom present in room. CGA for logroll to L and CGA for sidelying<>sit and scooting EOB. PTs BP:93/59 sitting. Pt sat EOB for 2 min and denied dizziness. Pt sit<> stand CGA to Min A w/ FWW. Pts BP stable upon standing, pt then performed [address] and then ambulated ~4 ft w/ FWW. Pt reported slight dizziness and transferred to chair CGA to Min A. Pts BP:77/45, pt in chair w/ legs elevated and BP: 89/67. Pt reported decreased dizziness upon sitting. Pt left in chair w/ feet elevated and RN in room. Gait Assessment Gait Gait Assistance Required: Contact Guard Assist,1 Person Assist Distance (Feet) 4 Able to Maintain Weight Bearing Status Yes During Gait Assistive Devices Assistive Device Front Wheeled Walker Orthotic/Prosthetic Devices or Brace: No Gait Deviations General Gait Pattern Decreased Stride Length, Decreased Feet Clearance Factors Limiting Gait Function Factors Limiting Gait Function Decreased Activity Tolerance, Decreased Sensation,Decreased Strength,Pain Comments Gait Comments Pleqase refer to mobility section for details. Ambulation limited d/t low BP and dizziness. PT-Balance Assessment Sitting Balance and Reactions Static Sitting Balance Ability Good Dynamic Sitting Balance Ability Fair Standing Balance and Reactions Static Standing Balance Ability Fair Dynamic Standing Balance Ability Fair Device Used FWW M5 PT-IP Objective Assessments Start: 02/27/20 12:59 Freq: NEEDED Status: Active Protocol: Document 02/27/20 10:41 AB (Rec: 02/27/20 13:13 AB [id number]) Orientation Orientation/Cognition Level of Alertness Alert Orientation Name,Place,Situation Language Function Ability No Deficits Noted Safety Awareness Understands Safety Issues Memory Description No Deficits Noted Gross Range of Motion Lower Extremity ROM Assessment Within Functional Limits Strength Lower Extremity Strength Assessment Right Impaired Hip 3-/5 Knee 3+/5 Coordination Assessment Gross Coordination Gross Coordination WNL Sensation Assessment Sensation Gross Sensation Right LE Impaired Light Touch Impaired Proprioception (Position) Impaired Sensation Description Numbness M6 PT-IP Treatment Start: 02/27/20 12:59 Freq: NEEDED Status: Active Protocol: Document 02/28/20 10:51 [place] (Rec: 02/28/20 12:33 [place] [id number]) Physical Therapy Treatment Exercises Exercises Ankle Pumps,Gluteal Sets,Quad Sets Education Education Provided Precautions,Safety M7 PT-IP Assessment and Plan Start: 02/27/20 12:59 Freq: NEEDED Status: Active Protocol: Document 02/28/20 10:51 [place] (Rec: 02/28/20 12:33 [place] [id number]) PT Summary Assessment and Plan Potential Rehabilitation Potential Good Status of Condition at Evaluation Evolving Summary Impairments Pain,ROM,Strength,Balance, Coordination,Sensation,Tone, Cognition,Bed Mobility, Transfers,Gait,Activity Tolerance Progress Towards Goals Progressing Toward Goals Assessment Summary Pt showed improvement w/ bed mobility and transfers, only requiring CGA for logroll, sidelying to sit, CGA to Min A for sit<>stand. Pts BP stable from sitting to standing, however did drop after ~4 ft ambulation when pt c/o slight dizziness. Pt instructed to sit down. Pts feet elevated and BP improved. Pt remains limited by symptomatic low BP. D/c plan depending on pts progress, but anticipating progression during hospital stay. If deciding to go home, Pt will require caregiver training prior to d/c. Goals Bed Mobility Goal Independent Transfer Goal Independent,Front Wheeled Walker Gait Goal Independent,Front Wheel Walker Gait Distance 50 Other Goals improve ambulation without AD 200 ft SBA up/down 2 steps without AD sBA Days to Meet Goals 10 Frequency of Treatment Frequency Of Treatment Once a Day Treatment Plan Physical Therapy Treatment Plan Bed Mobility Training,Transfer Training,Gait Training, Therapeutic Exercise,Balance Retraining,Post Op Education, Discharge Planning,Hot or Cold Pack,Neuromuscular Re-ed, Coordination Retraining Recommendations To Nursing Amount of Assist Needed 2 Person Assist Discharge Recommendations PT Discharge Recommendations Home with Assistance,Home Health,SNF Rehab Other Discharge Recommendations depending on progress: SNF vs home with assist and HHPT Equipment Needed for Home Before FWW if not safe without AD Discharge Transportation Needs at Discharge Private Vehicle,Wheelchair/ Cabulance
--- NOTE | 2020-02-28 12:06 | OT.IPNOTE ---
Nursing in with pt and family regarding stoma training, therefore unable to see pt today for OT.
--- NOTE | 2020-02-28 13:05 | PC.NURSE ---
Ostomy Nurse Consult Note Kym sitting up in the chair, PT and her blood pressure dropped. She remained in the chair and her blood pressure went back up. Her mother Brianna is here with her today for ostomy teaching. Kym stayed in the chair while I instructed Brianna, but she was very sleepy yet asked questions. Her stoma is pink, edematous, moist and the bridge is in place. She has light green clear effluent in the ostomy pouch. Her midline incision dressing is dry and intact. Her GREGORIO drain has serosanguenous drainage and her agrawal is draining dark ziyad urine. She said she did have a bowel movement from her rectum yesterday. I did not change her ostomy appliance today. I will change this on Sunday. I reviewed GI anatomy with her mom and discussed dehydration and prevention of dehydration. I discussed food blockage and prevention and treatment. I gave her the [employer] New Patient Guide and [employer] Nutrition Guide, which we reviewed sections and I instructed her to watch some Youtube videos. She practice measuring and applying a [employer]ate[employer] moldable two piece appliance and a cut to fit one piece appliance to the stoma model. She practice the Crusting Technique, we reviewed using stoma accessories and discussed types of appliances. During this teaching session, Kym was trying to listen and she did ask several relevant questions. I will return on Sunday to assess the stoma and change the appliance as well as continue with ostomy teaching with Kym and her .
[2020-02-28] MEDS: ONDANSETRON 4 MG/2 ML INJ IV ×2 (14:30→23:41)
--- NOTE | 2020-02-28 15:20 | CM.SWNOTE ---
SENIOR COST ANALYST Note This SENIOR COST ANALYST requested to follow case ; for support and coordination of DC needs. Patient is a 34 yo female, now POD#2 from from laparotomy, sigmoid colectomy, with primary anastomosis for large bowel obstruction, and diverting ileostomy. Firm, Large abd mass found and tissue sent for biopsy. Met w/patient and her yesterday to introduce role, brief visit as patient in the middle of OT session. Explained that SENIOR COST ANALYST team/IH staff and Eli Garcia guest services attendant were committed to supporting she and her family w/education, teaching, and emotional support in preparation for her DC home.Patient appreciative and explained that the more information the better as it makes her feel more in control. 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 Patient plans to DC home w/assist from both her mom and her spouse to assist, both very supportive. Patient has been started on Zoloft, prescribed by Dr Gonzalez. She has ativan available for anxiousness as she processes the gravity of her current situation. Epidural was decreased, stopped (?) this AM and turned back on, at a lower rate, d/t increased pain this morning. This SENIOR COST ANALYST and Eli Garcia guest services attendant, in close contact re: meeting the needs of this 34 yo. lEi met patient and her spouse yesterday, returned for a second visit today w/patient and mom. Eli unsure whether patient will benefit from HH RN at this time, will continue to assess. According to conversation w/Eli today, patient in pain, exhausted, and quite dehydrated this morning. Eli completed a lot of teaching w/mom at bedside today, patient quite groggy. Patient eager to get up and walk, Eli suggests patient rest and recover today from the shock of surgery and get up when feeling rested and stronger. Patient appreciative for the medical permission to rest a bit today. According to Eli, patient eager to get better and get home but patient may require additional days before safe return home w/new ileostomy. Eli feeling confident that patient can manage well w/support from her spouse and mom, although, depending on medical progress and how the stoma looks Sunday, patient and family may benefit from HH RN, if patient qualifies, to assist w/Ostomy care once home. Patient will also have close outpt f/u w/surgery and guest services attendant. This SENIOR COST ANALYST did not feel today was an appropriate day for additional time spent w/patient, DCP and SENIOR COST ANALYST team will follow closely and plan to assist/support as needed over the next 24-72+ hours. MIMI Fierro
[2020-02-28] MEDS: SERTRALINE 50 MG TABLET 100 MG PO (20:34)
[2020-02-28] MEDS: SODIUM CHLORIDE 0.9% 1,000 ML 1000 ML IV (20:42)
[2020-02-28] MEDS: LOPERAMIDE 2 MG CAPSULE PO (20:47)
[2020-02-29] VITALS (10 sets, daily range): BP systolic 103–118; BP diastolic 65–75; PULSE 71–91; RESP 15–18; TEMP 36.2–37.7; O2SAT 92–99
[2020-02-29] MEDS: PIPERACILLIN-TAZO 3.375 GM/50 ML FROZ.PIGGY IV ×4 (02:03→21:14)
[2020-02-29] MEDS: LACTATED RINGERS 1,000 ML 200 ML IV ×4 (02:06→19:09)
[2020-02-29] MEDS: LORazepam 2 MG/ML INJ 0.5 MG IV ×3 (04:27→22:02)
[2020-02-29 05:11] LABS: Add Manual Diff / Slide Review NO; Basophils Absolute Auto 0 /uL (0-100); Basophils Percent Auto 0.2 % (0-2); Eosinophils Absolute Auto 300 /uL (0-450); Eosinophils Percent Auto 2.1 % (2-4); Hematocrit 31.4 % (36-46); Hemoglobin 10.6 g/dL (12.0-16.0); Lymphocytes Absolute Auto 1000 /uL (1100-4500); Lymphocytes Percent Auto 8.2 % (25-40); Mean Corpuscular HGB Conc 33.7 % (30-36); Mean Corpuscular Hemoglobin 29.4 PG (26-34); Mean Corpuscular Volume 87.3 fL (80-100); Monocytes Absolute Auto 800 /uL (0-900); Monocytes Percent Auto 6.5 % (3-14); Neutrophils Absolute Auto 10400 /uL (1500-7000); Platelet Count 235 X10^3/uL (150-400); White Blood Cell Count 12.6 X10^3/uL (4.5-11.0)
[2020-02-29 05:17] LABS: BUN Creatinine Ratio 18.7 (6-22); Blood Urea Nitrogen 14 mg/dL (7-17); Calcium 8.2 mg/dL (8.4-10.2); Carbon Dioxide 29 mmol/L (22-32); Chloride 100 mmol/L (98-107); Estimated Glomerular Filt Rate > 60.0 mL/min (>60); Glucose 103 mg/dL (70-100); HEMOLYSIS < 15 (0-50); Magnesium 2.1 mg/dL (1.6-2.3); Phosphorous 3.3 mg/dL (2.5-4.5); Potassium 4.2 mmol/L (3.4-5.1); Sodium 133 mmol/L (137-145)
[2020-02-29] MEDS: KETOROLAC 30 MG/ML VIAL IV ×3 (05:29→17:53)
--- NOTE | 2020-02-29 06:18 | PC.NURSE ---
Addendum entered by Little Gabriel R.N. 02/29/20 06:54: Notified Dr. Polanco at 0653 regarding patient's decreased urine output (25 mL/hr average, last 1.5 hours only 10 mL/hr). Also notified her of patient's color. Patient appears to be much paler today than yesterday. Also informed Dr. Polanco of total outputs for nae drain and ileostomy. No orders received, she stated she would be in shortly to see patient. Patient remains comfortable in bed, in no distress. Original Note: machine setup operator note: Patient slept well throughout the shift. Patient requiring PRN Ativan doses x2, and a dose of Zofran at start of shift. Patient complaining of a bubbling, belching feeling in stomach that radiates up into throat. Patient still with epidural catheter in place. Infusion going at 6 ml/Hr with patient using 10 mLs of PCEA setting. Patient with marginal UOP (average of 25 mL/hr). Patient with moderate drainage from nae drain (150 mLs), and 150 mLs of yellow/bile from ileostomy. Epidural site clean, dry, intact. Patient has rated her pain as high as a 5/10, and as low as 0/10. Patient remains on RA. Sats 93%. Patient currently resting in bed, no distress noted.
[2020-02-29] MEDS: SODIUM CHLORIDE 0.9% 1,000 ML 1000 ML IV (08:00)
[2020-02-29 09:13] LABS: Creatinine Body Fluid 0.68 mg/dL
[2020-02-29] MEDS: PANTOPRAZOLE 40 MG VIAL IV (09:38)
[2020-02-29] MEDS: ONDANSETRON 4 MG/2 ML INJ IV ×2 (09:44→16:38)
--- NOTE | 2020-02-29 09:49 | P.PN_ITS ---
Subjective Subjective Date Patient Seen: 02/29/20 Time Patient Seen: 13:04 Interval history: No acute events overnight. Pt ambulated today with epidural off. She is having some burping and nausea, high volume watery ileostomy output. Exam Vital Signs (past 8 hours): - 02/29/20 04:29 02/29/20 04:33 02/29/20 08:00 Temperature 97.6 F 97.4 F L Pulse Rate 84 86 Respiratory Rate 16 18 Blood Pressure 118/72 111/75 Pulse Oximetry 93 93 96 Oxygen Delivery Method Room Air Oxygen Flow Rate 0 Narrative Exam Narrative: GENERAL: Alert but drowsy appearing. Mild distress due to nausea. Appears stated age. Answers questions promptly and appropriately. Vital signs noted. HENT: Normocephalic, atraumatic. Hearing intact. EYES: Conjunctiva pink, sclera white, no periorbital swelling. CARDIOVASCULAR: Regular rate. No pedal edema. RESPIRATORY: Non-tachypneic, breathing comfortably on room air. GASTROINTESTINAL: Abdomen soft, mildly distended, incision c/d/i; GREGORIO drain sero us; ostomy edematous, p/p/p with copious clear bile tinged output; moderately ttp MUSCULOSKELETAL: Equal tone and mass bilaterally. SKIN: Warm, dry, soft, appropriate color for ethnicity. No other lesions, rashes, or wounds. PSYCH: Appropriate affect and mood. Objective Labs Result Diagrams: 02/29/20 04:45 02/29/20 04:45 Labs: Laboratory Results - last 24 hr 02/29/20 02/29/20 02/29/20 04:45 04:45 09:00 WBC 12.6 H RBC 3.60 L Hgb 10.6 L Hct 31.4 L MCV 87.3 MCH 29.4 MCHC 33.7 RDW 12.0 Plt Count 235 Neut % (Auto) 83.0 H Lymph % (Auto) 8.2 L [place] % (Auto) 6.5 Eos % (Auto) 2.1 Baso % (Auto) 0.2 Neut # (Auto) 46743 H Lymph # (Auto) 1000 L [place] # (Auto) 800 Eos # (Auto) 300 Baso # (Auto) 0 Sodium 133 L Potassium 4.2 Chloride 100 Carbon Dioxide 29 BUN 14 Creatinine 0.75 Estimated GFR > 60.0 BUN/Creatinine Ratio 18.7 Glucose 103 H Calcium 8.2 L Phosphorus 3.3 Magnesium 2.1 Fluid Creatinine 0.68 Assessment & Plan Assessment and plan (1) Large bowel obstruction: Status: Acute (2) Abdominal pain: Qualifiers: Abdominal location: generalized Qualified Code(s): R10.84 - Generalized abdominal pain Status: Acute (3) Ileostomy in place: Status: Acute (4) S/P laparotomy: Status: Acute Assessment & Plan narrative: 34-year-old woman who is postop day 3 from laparotomy, sigmoid colectomy, with primary anastomosis for large bowel obstruction, and diverting ileostomy. We tried treating offer epidural yesterday, but her pain was not well controlled without it, so it was turned back on. She received Lovenox yesterday, but it was held this morning to try a gain with turning off the epidural. She has tolerated having the epidural off for few hours, and has ambulated with the epidural off. At this point we will plan on her removing the epidural, and continuing with p.o. and IV pain meds. She will get Lovenox this afternoon 4 hours after the epidural was removed. We will also remove the Hernandez catheter for hours after the epidural was turned off. Will continue working on ambulation. Her return of bowel function is somewhat equivocal given that she has high ileostomy output, but continues to have some nausea and a small emesis. She seems to have quite a bit of anxiety, and her nausea seems to be associated with pain. We will continue relatively high volume IV fluids to keep up with her high ostomy output and relatively low urine output. We will add some Imodium to help slow down the output. When she is tolerating a solid diet that will help, and we may need to add some fiber supplement such as Metamucil to help bulk up the stool as well. I do not think she will tolerate the Metamucil right now as she is tolerating relatively little p.o.. I set the GREGORIO drain for creatinine since it was relatively high volume, but the creatinine was consistent with serum creatinine, and not indicative of a urine leak. Plan: Continue Ostomy teaching DVT prophylaxis with SCDs and Lovenox (to be given 4 hours after the epidural removed) Epidural to come out today Continue full liquid diet as tolerated, advanced diet as tolerated Ambulate as much as possible Keep Hernandez until epidural is out per Dr. Lisa (to be removed 4 hours after epidural turned off) Keep antibiotics for today, and follow-up white blood cell count Continue IV fluids until ostomy output is controlled to keep up with hydration Imodium 2 mg t.i.d. COVID-19 COVID-19 status: Negative Result date/Date tested (Pos, Neg/Pending): 02/26/20 Time Spent With Patient Time with patient: 25 - 35 minutes Quality VTE Deep Vein Thrombosis/Pulmonary Embolism Present on Admission: No
--- NOTE | 2020-02-29 10:07 | PT-IP ANOTE ---
Pt having issues with GERD, pt had meds and is napping, will return @ 1130 for tx.
--- NOTE | 2020-02-29 11:00 | PT.IPTN ---
Current Diagnoses Unspecified intestinal obstruction, unspecified as to partial versus complete obstruction (02/25/20) Generalized abdominal pain (02/25/20) Ileostomy status (02/25/20) Other specified postprocedural states (02/25/20) Surgery Performed Operation Date: 02/25/20 15:45 Actual Procedures p Colonoscopy with biospies(Left) - Wesley Gonzalez MD Operation Date: 02/26/20 07:45 Actual Procedures p Exploratory Laparotomy GEN, BOWEL RESECTION, LOOP ILEOSTOMY, INCIDENTAL APPENDECTOMY(Not Applicable) - Wesley Gonzalez MD Physical Therapy Treatment Note M2 PT-IP Current Condition Start: 02/27/20 12:59 Freq: NEEDED Status: Active Protocol: Document 02/27/20 10:41 AB (Rec: 02/27/20 13:13 AB [email or web address]) Physical Therapy Current Condition Current Condition Evaluation Date 02/27/20 Treatment Diagnosis large bowel obstruction s/p colectomy/ileostomy; difficulty in walking Onset Date 02/25/20 Precautions Abdominal Surgery Precautions Log Roll,Lifting Restrictions, Gait Belt above Incisional Area M3 PT-IP Subjective Start: 02/27/20 12:59 Freq: NEEDED Status: Active Protocol: Document 02/29/20 10:42 CLB (Rec: 02/29/20 11:38 CLB [id number]) Subjective Physical Therapy Visit Type Type Treatment Note Visit Start Time 10:42 Visit Stop Time 11:00 Total Visit Minutes 18 Number of ELEVATED WORK PLATFORM OPERATOR Visits 2 Physical Therapy Visit Comments Patient Comments Pt in chair and needing to use BSC. GRAVITY METER OBSERVER assisting during tx. M4 PT-IP Mobility and Gait Start: 02/27/20 12:59 Freq: NEEDED Status: Active Protocol: Document 02/29/20 10:42 CLB (Rec: 02/29/20 11:38 CLB [id number]) PT-Transfer Assessment Sit to and From Stand Sit to and from Stand Contact Guard Assistance, Minimal Assistance,1 Person Assistance,Use of Upper Extremities Equipment Transfer Assistive Device Front Wheeled Walker Orthotic/Prosthetic Devices or Brace: No Transfers Transfer Destination Chair,Bedside Commode Transfer Technique pt ambulated w/ FWW Transfer Ability Level of Assist Contact Guard Assistance, Minimal Assistance,1 Person Assistance Comments Mobility Comments Pt in chair upon arrival. Pt scooting to edge of chair and stood requiring Min A and cues for hand placement for push off and safety. Pt transferring with stand pivot to [facility] CGA. Pt sat requiring Min A as pt was quick to sit w /o using UE to slow descent. Pt stood from BSC requiring CGA and pt requiring CGA for standing balance during pericare. Pt requiring CGA for transfer back to chair. After brief rest break pt stood requiring CGA and cues again for hand placement, pt ambulated ~6ft with chair follow and CGA. Pt sat in chair with cues for hand placement and good control. Pt performed LE knee ext/flx and ankle pumps, pt with LE weakness L>R. Pt was left in chair with alarm on, and call light close, GRAVITY METER OBSERVER present. Gait Assessment Gait Gait Assistance Required: Contact Guard Assist,1 Person Assist Distance (Feet) 6 Able to Maintain Weight Bearing Status Yes During Gait Assistive Devices Assistive Device Front Wheeled Walker Orthotic/Prosthetic Devices or Brace: No Gait Deviations General Gait Pattern Decreased Stride Length, Decreased Feet Clearance Factors Limiting Gait Function Factors Limiting Gait Function Decreased Activity Tolerance, Decreased Sensation,Decreased Strength,Pain Comments Gait Comments Pt ambulating ~6ft in room with chair follow and CGA with GRAVITY METER OBSERVER following with chair. Pt uses step to gait pattern leading with LLE. PT-Balance Assessment Sitting Balance and Reactions Static Sitting Balance Ability Good Dynamic Sitting Balance Ability Fair Standing Balance and Reactions Static Standing Balance Ability Fair Dynamic Standing Balance Ability Fair Device Used FWW M5 PT-IP Objective Assessments Start: 02/27/20 12:59 Freq: NEEDED Status: Active Protocol: Document 02/27/20 10:41 AB (Rec: 02/27/20 13:13 AB [id number]) Orientation Orientation/Cognition Level of Alertness Alert Orientation Name,Place,Situation Language Function Ability No Deficits Noted Safety Awareness Understands Safety Issues Memory Description No Deficits Noted Gross Range of Motion Lower Extremity ROM Assessment Within Functional Limits Strength Lower Extremity Strength Assessment Right Impaired Hip 3-/5 Knee 3+/5 Coordination Assessment Gross Coordination Gross Coordination WNL Sensation Assessment Sensation Gross Sensation Right LE Impaired Light Touch Impaired Proprioception (Position) Impaired Sensation Description Numbness M6 PT-IP Treatment Start: 02/27/20 12:59 Freq: NEEDED Status: Active Protocol: Document 02/29/20 10:42 CLB (Rec: 02/29/20 11:38 CLB [id number]) Physical Therapy Treatment Exercises Exercises Ankle Pumps,Seated Knee Flexion/Extension Education Education Provided Precautions,Safety M7 PT-IP Assessment and Plan Start: 02/27/20 12:59 Freq: NEEDED Status: Active Protocol: Document 02/29/20 10:42 CLB (Rec: 02/29/20 11:38 CLB [id number]) PT Summary Assessment and Plan Summary Impairments Pain,ROM,Strength,Balance, Coordination,Sensation,Tone, Cognition,Bed Mobility, Transfers,Gait,Activity Tolerance Progress Towards Goals Progressing Toward Goals Assessment Summary Pt improving with sit<>stand, transfers and gait. Pt ambulating ~6ft requiring CGA with FWW and chair follow. Pt cooperative with therapy today wanting to improve mobility was agreeable to ambulation. Goals Bed Mobility Goal Independent Transfer Goal Independent,Front Wheeled Walker Gait Goal Independent,Front Wheel Walker Gait Distance 50 Other Goals improve ambulation without AD 200 ft SBA up/down 2 steps without AD sBA Days to Meet Goals 10 Frequency of Treatment Frequency Of Treatment Once a Day Treatment Plan Physical Therapy Treatment Plan Bed Mobility Training,Transfer Training,Gait Training, Therapeutic Exercise,Balance Retraining,Post Op Education, Discharge Planning,Hot or Cold Pack,Neuromuscular Re-ed, Coordination Retraining Recommendations To Nursing Amount of Assist Needed 2 Person Assist Discharge Recommendations PT Discharge Recommendations Home with Assistance,Home Health,SNF Rehab Other Discharge Recommendations depending on progress: SNF vs home with assist and HHPT Equipment Needed for Home Before FWW if not safe without AD Discharge Transportation Needs at Discharge Private Vehicle,Wheelchair/ Cabulance
--- NOTE | 2020-02-29 12:05 | PT.IPTN ---
Current Diagnoses Unspecified intestinal obstruction, unspecified as to partial versus complete obstruction (02/25/20) Generalized abdominal pain (02/25/20) Ileostomy status (02/25/20) Other specified postprocedural states (02/25/20) Surgery Performed Operation Date: 02/25/20 15:45 Actual Procedures p Colonoscopy with biospies(Left) - Wesley Gonzalez MD Operation Date: 02/26/20 07:45 Actual Procedures p Exploratory Laparotomy GEN, BOWEL RESECTION, LOOP ILEOSTOMY, INCIDENTAL APPENDECTOMY(Not Applicable) - Wesley Goznalez MD Physical Therapy Treatment Note M2 PT-IP Current Condition Start: 02/27/20 12:59 Freq: NEEDED Status: Active Protocol: Document 02/27/20 10:41 AB (Rec: 02/27/20 13:13 AB [email or web address]) Physical Therapy Current Condition Current Condition Evaluation Date 02/27/20 Treatment Diagnosis large bowel obstruction s/p colectomy/ileostomy; difficulty in walking Onset Date 02/25/20 Precautions Abdominal Surgery Precautions Log Roll,Lifting Restrictions, Gait Belt above Incisional Area M3 PT-IP Subjective Start: 02/27/20 12:59 Freq: NEEDED Status: Active Protocol: Document 02/29/20 11:42 CLB (Rec: 02/29/20 12:39 CLB [id number]) Subjective Physical Therapy Visit Type Type Treatment Note Visit Start Time 11:42 Visit Stop Time 12:05 Total Visit Minutes 23 Number of MANDREL PRESS HAND Visits 3 Physical Therapy Visit Comments Patient Comments Pt agreeable to ambulate in middle [place], present for tx. M4 PT-IP Mobility and Gait Start: 02/27/20 12:59 Freq: NEEDED Status: Active Protocol: Document 02/29/20 11:42 CLB (Rec: 02/29/20 12:39 CLB [id number]) PT-Transfer Assessment Sit to and From Stand Sit to and from Stand Contact Guard Assistance,Use of Upper Extremities Equipment Transfer Assistive Device Gait Belt,Front Wheeled Walker Orthotic/Prosthetic Devices or Brace: No Transfers Transfer Destination Chair Transfer Technique pt ambulated w/ FWW Transfer Ability Level of Assist Contact Guard Assistance,Use of Upper Extremities Comments Mobility Comments Pt on EOB with nursing upon arrival. Pt stood requiring CGA, pt then ambulated into [place] ~50ft stopping to gaze out window. Pt then ambulated around [facility] ~ 150ft requiring SBA and assist with IV lines. Pt started ambulating with a step to step gait pattern then with cues was able to transition into small step thru gait pattern with constant push of walker. After ~50ft pt was able to improve posture and increase jewel w/o increase in pain. Pt returned to room sitting in chair SBA. Pt left in chair with all needs within reach and present, RN informed of pt mobility and that pt was requesting to brush teeth and have a shower. Gait Assessment Gait Gait Assistance Required: Standby Assistance Distance (Feet) 150 Able to Maintain Weight Bearing Status Yes During Gait Assistive Devices Assistive Device Gait Belt,Front Wheeled Walker Orthotic/Prosthetic Devices or Brace: No Gait Deviations General Gait Pattern Decreased Stride Length, Decreased Feet Clearance Factors Limiting Gait Function Factors Limiting Gait Function Decreased Activity Tolerance, Decreased Sensation,Decreased Strength,Pain Comments Gait Comments see mobility section PT-Balance Assessment Sitting Balance and Reactions Static Sitting Balance Ability Good Dynamic Sitting Balance Ability Fair Standing Balance and Reactions Static Standing Balance Ability Fair Dynamic Standing Balance Ability Fair Device Used FWW M5 PT-IP Objective Assessments Start: 02/27/20 12:59 Freq: NEEDED Status: Active Protocol: Document 02/27/20 10:41 AB (Rec: 02/27/20 13:13 AB [id number]) Orientation Orientation/Cognition Level of Alertness Alert Orientation Name,Place,Situation Language Function Ability No Deficits Noted Safety Awareness Understands Safety Issues Memory Description No Deficits Noted Gross Range of Motion Lower Extremity ROM Assessment Within Functional Limits Strength Lower Extremity Strength Assessment Right Impaired Hip 3-/5 Knee 3+/5 Coordination Assessment Gross Coordination Gross Coordination WNL Sensation Assessment Sensation Gross Sensation Right LE Impaired Light Touch Impaired Proprioception (Position) Impaired Sensation Description Numbness M6 PT-IP Treatment Start: 02/27/20 12:59 Freq: NEEDED Status: Active Protocol: Document 02/29/20 10:42 CLB (Rec: 02/29/20 11:38 CLB [id number]) Physical Therapy Treatment Exercises Exercises Ankle Pumps,Seated Knee Flexion/Extension Education Education Provided Precautions,Safety M7 PT-IP Assessment and Plan Start: 02/27/20 12:59 Freq: NEEDED Status: Active Protocol: Document 02/29/20 11:42 CLB (Rec: 02/29/20 12:39 CLB [id number]) PT Summary Assessment and Plan Summary Impairments Pain,ROM,Strength,Balance, Coordination,Sensation,Tone, Cognition,Bed Mobility, Transfers,Gait,Activity Tolerance Progress Towards Goals Progressing Toward Goals Assessment Summary Pt improving with sit<>stand and gait. Pt able to ambulate ~150ft SBA w/FWW. Pt CG training and stair training before d/c home. Pt stated he has FWW, cane and shower chair for home use. Goals Bed Mobility Goal Independent Transfer Goal Independent,Front Wheeled Walker Gait Goal Independent,Front Wheel Walker Gait Distance 50 Other Goals improve ambulation without AD 200 ft SBA up/down 2 steps without AD sBA Days to Meet Goals 10 Frequency of Treatment Frequency Of Treatment Once a Day Treatment Plan Physical Therapy Treatment Plan Bed Mobility Training,Transfer Training,Gait Training, Therapeutic Exercise,Balance Retraining,Post Op Education, Discharge Planning,Hot or Cold Pack,Neuromuscular Re-ed, Coordination Retraining Recommendations To Nursing Amount of Assist Needed 1 Person Assist Discharge Recommendations PT Discharge Recommendations Home with Assistance,Home Health Transportation Needs at Discharge Private Vehicle
[2020-02-29] MEDS: OXYCODONE/ACETAMINOPHEN 5/325 TABLET 1 TAB PO ×3 (13:07→22:02)
[2020-02-29] MEDS: HYDROMORPHONE 0.5 MG INJ IV (13:53)
--- NOTE | 2020-02-29 15:51 | PC.NURSE ---
1545- Epidural removed per anesthesia order. Patient tolerated well.
[2020-02-29] MEDS: LOPERAMIDE 2 MG CAPSULE PO ×2 (16:37→21:14)
[2020-02-29] MEDS: ENOXAPARIN 40 MG/0.4 ML SYRINGE SUBCUT (21:13)
[2020-02-29] MEDS: SERTRALINE 50 MG TABLET 100 MG PO (21:14)
[2020-03-01] VITALS (8 sets, daily range): BP systolic 101–104; BP diastolic 54–68; PULSE 66–84; RESP 16–18; TEMP 36.2–36.8; O2SAT 94–97
[2020-03-01] MEDS: KETOROLAC 30 MG/ML VIAL IV ×3 (00:27→18:03)
[2020-03-01] MEDS: LACTATED RINGERS 1,000 ML 200 ML IV ×2 (00:41→06:21)
[2020-03-01] MEDS: LORazepam 2 MG/ML INJ 0.5 MG IV ×2 (00:41→05:23)
[2020-03-01] MEDS: PIPERACILLIN-TAZO 3.375 GM/50 ML FROZ.PIGGY IV (02:40)
[2020-03-01 05:23] LABS: Add Manual Diff / Slide Review NO; Basophils Absolute Auto 0 /uL (0-100); Basophils Percent Auto 0.5 % (0-2); Eosinophils Absolute Auto 400 /uL (0-450); Eosinophils Percent Auto 5.4 % (2-4); Hematocrit 28.4 % (36-46); Hemoglobin 9.7 g/dL (12.0-16.0); Lymphocytes Absolute Auto 1300 /uL (1100-4500); Lymphocytes Percent Auto 15.9 % (25-40); Mean Corpuscular HGB Conc 34.2 % (30-36); Mean Corpuscular Hemoglobin 29.8 PG (26-34); Mean Corpuscular Volume 87.1 fL (80-100); Monocytes Absolute Auto 600 /uL (0-900); Monocytes Percent Auto 7.1 % (3-14); Neutrophils Absolute Auto 5900 /uL (1500-7000); Neutrophils Percent Auto 71.1 % (50-75); Platelet Count 213 X10^3/uL (150-400); Red Blood Cell Count 3.26 X10^6/uL (4.0-5.2); White Blood Cell Count 8.2 X10^3/uL (4.5-11.0)
[2020-03-01] MEDS: OXYCODONE/ACETAMINOPHEN 5/325 TABLET 1 TAB PO ×4 (05:23→20:48)
[2020-03-01 06:21] LABS: Blood Urea Nitrogen 12 mg/dL (7-17); Carbon Dioxide 28 mmol/L (22-32); Chloride 102 mmol/L (98-107); Estimated Glomerular Filt Rate > 60.0 mL/min (>60); Glucose 96 mg/dL (70-100); HEMOLYSIS < 15 (0-50); Phosphorous 2.9 mg/dL (2.5-4.5); Potassium 4.3 mmol/L (3.4-5.1); Sodium 134 mmol/L (137-145)
--- NOTE | 2020-03-01 09:39 | PC.NURSE ---
Addendum entered by Carmen Sim R.N. 03/01/20 10:03: STEFANIE- OSTOMY SPECIALIST HERE TO WORK WITH PT AND SPOUSE Original Note: pt doing well- engaging in conversation with this RN- even smiling and joking. Denies having pain at present - having had po pain rx earlier - did discuss use of narcotics and constipating effects as well as importance of taking more intake nutrition
[2020-03-01] MEDS: LORazepam 0.5 MG TABLET PO ×3 (11:36→20:48)
--- NOTE | 2020-03-01 11:45 | PT-IP ANOTE ---
Check on pt multiple times this morning and pt has been working with Eli. Will check back with pt later this afternoon.
--- NOTE | 2020-03-01 12:20 | PC.NURSE ---
Ostomy Nurse Consult Note Kym sitting up in bed with her Otoniel as her side. She feels better today but continues to have pain and is worried about her pathology report. I changed her appliance this morning. The stoma is pink, edematous, moist, sutures intact and bridge in place. It measures 38mm oval and she is producing clear liquid effluent. I placed her in a Convatec 57mm Moldable appliance with an seble ring and clear non-filter pouch. She and Otoniel watched me change the appliance and I instructed them as I changed it out. Her GREGORIO drain is draining clear yellow drainage. Otoniel then practiced on the stoma model. He practiced a moldable and a cut to fit. He did very well. He practiced the crusting technique and used the accessories. Kym listen and asked questions as well. We reviewed food blockage and prevention of dehydration. Mari form Nutrition was in discussing diet as well. Kym did also practice applying an appliance to the model. Dr. Gonzalez can in and gave her great news that she does not have cancer. Everyone is overjoyed. She will discharge tomorrow without the need for fpc. She states that between herself, and mother they will be able to manage, and I agree. I have given them supplies and will order samples. She will go home with the GREGORIO drain and the stoma bridge. I will see her at Dr. Sumner office on March 08.
--- NOTE | 2020-03-01 12:36 | PM.PNPO.1 ---
Subjective Subjective Date Patient Seen: 03/01/20 Time Patient Seen: 12:36 Interval history: no acute overnight events. ambulating pain is controlled. ostomy teaching Exam Vital Signs (past 8 hours): - 03/01/20 05:16 03/01/20 05:49 03/01/20 09:00 Temperature 97.2 F L 98.0 F Pulse Rate 66 70 Respiratory Rate 18 16 Blood Pressure 102/54 L 101/61 Pulse Oximetry 97 97 96 03/01/20 09:29 Temperature Pulse Rate Respiratory Rate Blood Pressure Pulse Oximetry 96 Oxygen Delivery Method Room Air Oxygen Flow Rate 0 Narrative Exam Narrative: Gen-adult female alert and oriented no acute distress Chest-Non labored resp Abdomen-soft, incision CDI ostomy viable, appropriately tender to palpation Objective Labs Result Diagrams: 03/01/20 04:45 03/01/20 04:45 Labs: Laboratory Results - last 24 hr 03/01/20 03/01/20 04:45 04:45 WBC 8.2 RBC 3.26 L Hgb 9.7 L Hct 28.4 L MCV 87.1 MCH 29.8 MCHC 34.2 RDW 12.0 Plt Count 213 Neut % (Auto) 71.1 Lymph % (Auto) 15.9 L Bailey % (Auto) 7.1 Eos % (Auto) 5.4 H Baso % (Auto) 0.5 Neut # (Auto) 5900 Lymph # (Auto) 1300 Bailey # (Auto) 600 Eos # (Auto) 400 Baso # (Auto) 0 Sodium 134 L Potassium 4.3 Chloride 102 Carbon Dioxide 28 BUN 12 Creatinine 0.63 Estimated GFR > 60.0 BUN/Creatinine Ratio 19.0 Glucose 96 Calcium 8.0 L Phosphorus 2.9 Magnesium 2.0 Assessment & Plan Post-op Postoperative Procedures: Procedures Operation Date: 02/25/20 15:45 Actual Procedures Side Surgeon p Colonoscopy with biospies Left Wesley Gonzalez MD Operation Date: 02/26/20 07:45 Actual Procedures Side Surgeon p Exploratory Laparotomy GEN, BOWEL RESECTION, LOOP ILEOSTOMY, INCIDENTAL APPENDECTOMY Not Applicable Wesley Gonzalez MD Postoperative status narrative: 34F POD 4 SP sigmoidectomy with diverting loop ileostomy for large bowel obstruction. pathology received-endometriosis within the sigmoid and associated lymph nodes and the appendix, which is quite unusual but excellent for her. Plan -Low residual diet + Immodium -Ostomy teaching -DC IVF -Will discharge tomorrow with drain -[facility] surgery clinic Thursday 03/08 for staple and drain removal -SCDs and pLovenox Quality VTE Deep Vein Thrombosis/Pulmonary Embolism Present on Admission: No
--- NOTE | 2020-03-01 13:04 | DIET.PN ---
Dietary Progress Note Assessment: 34y F s/p d4 for sigmoidectomy c loop ileostomy for large bowel obstruction found to endometriosis referred to nutrition for support of young pt with new ostomy. Pt receiving significant teaching from oil well directional surveyor Eli Garcia. Usual Day: B: smoothie c Orgain protein powder, collagen, almond milk, PB2, and ice L: can of soup-garden veggie, lentil, or chicken and rice D: protein, veggie and starch Sn: tries not to snack Bv: water, liquid IV, smartwater Pt prefers not to have much dairy HT: 165.1cm WT: 84.7kg BMI: 31.1 Nutrition Diagnosis: altered GI function (new ostomy) and nutrition related knowledge deficit r/t large intestine obstruction leading to loop ileostomy after sigmoidectomy aeb pt s/p d4 for large intestine obstruction, pt unaware of dietary reccs for ostomy, pt instructed by surgery to eat well to support tissues for reanastamosis of intestines. Interventions: 1. Echoed ostomy nurse's teaching on adequate hydration and foods to limit to avoid plugging new ostomy. Encouraged intake of strained tomato juice and coconut water in addition to plain water for sodium and electrolytes. 2. Provided pt with two ostomy friendly cookbooks for meal ideas. Pts breakfast and lunch options need not change, but pt wanted safe dinner ideas. 3. Reiterated nutrients of concern for healing of bowels including PRO, vits A, c, and zinc. With higher fiber foods, pt instructed to cook them very soft and eat small bits, chewing thoroughly to see how affects texture of ostomy output. 4. Discussed modifications to diet to support proper texture of ostomy output. With morning smoothie, if output too liquid, add 1/2 banana, if output too solid, add more liquid or ice, etc. Diet Order: Transitional Monitoring/Evaluations: f/u teaching as requested by pt or care team
--- NOTE | 2020-03-01 13:39 | PT.IPTN ---
Current Diagnoses Unspecified intestinal obstruction, unspecified as to partial versus complete obstruction (02/25/20) Generalized abdominal pain (02/25/20) Ileostomy status (02/25/20) Other specified postprocedural states (02/25/20) Surgery Performed Operation Date: 02/25/20 15:45 Actual Procedures p Colonoscopy with biospies(Left) - Wesley Gonzalez MD Operation Date: 02/26/20 07:45 Actual Procedures p Exploratory Laparotomy GEN, BOWEL RESECTION, LOOP ILEOSTOMY, INCIDENTAL APPENDECTOMY(Not Applicable) - Wesley Gonzalez MD Physical Therapy Treatment Note M2 PT-IP Current Condition Start: 02/27/20 12:59 Freq: NEEDED Status: Active Protocol: Document 02/27/20 10:41 AB (Rec: 02/27/20 13:13 AB [id number]) Physical Therapy Current Condition Current Condition Evaluation Date 02/27/20 Treatment Diagnosis large bowel obstruction s/p colectomy/ileostomy; difficulty in walking Onset Date 02/25/20 Precautions Abdominal Surgery Precautions Log Roll,Lifting Restrictions, Gait Belt above Incisional Area M3 PT-IP Subjective Start: 02/27/20 12:59 Freq: NEEDED Status: Active Protocol: Document 03/01/20 13:27 CLB (Rec: 03/01/20 15:47 CLB [id number]) Subjective Physical Therapy Visit Type Type Treatment Note Visit Start Time 13:27 Visit Stop Time 13:39 Total Visit Minutes 12 Number of OIL FIELD PIPELINE SUPERVISOR Visits 4 Physical Therapy Visit Comments Patient Comments Pt agreeable to ambulate in quintanilla, present for tx. Therapy Pain Assessment Pain When Pain Assessed During Mobility Pain Present Pain Present Pain Reported Location Abdomen Pain Behaviors Facial Grimacing,Moaning M4 PT-IP Mobility and Gait Start: 02/27/20 12:59 Freq: NEEDED Status: Active Protocol: Document 03/01/20 13:27 CLB (Rec: 03/01/20 15:47 CLB [id number]) PT-Bed Mobility Assessment Rolling Type of Rolling Log Rolling,Roll to Right Level of Assist Standby Assistance Supine to Sit Supine to Sit Standby Assistance Scooting Scooting to Edge of Bed Standby Assistance PT-Transfer Assessment Sit to and From Stand Sit to and from Stand Standby Assistance,Use of Upper Extremities Equipment Transfer Assistive Device Gait Belt,Front Wheeled Walker Orthotic/Prosthetic Devices or Brace: No Transfers Transfer Destination Toilet Transfer Technique pt ambulated w/ FWW Transfer Ability Level of Assist Standby Assistance,Use of Upper Extremities Comments Mobility Comments Pt required SBA for all bed mobility and sit<>stand. Pt ambulated in quintan[place] with cues for posture and relaxing shoulders. Pt ambulates with steady gait and good safety awareness, pt with small step thru gait pattern. Pt returned to room sat on toilet SBA, call light within reach to call for assist when finished in room, pt's present stating he has been assisting her to BR today as well. Informed RN pt was in BR . Gait Assessment Gait Gait Assistance Required: Standby Assistance Distance (Feet) 150 Able to Maintain Weight Bearing Status Yes During Gait Assistive Devices Assistive Device Gait Belt,Front Wheeled Walker Orthotic/Prosthetic Devices or Brace: No Gait Deviations General Gait Pattern Decreased Stride Length, Decreased Feet Clearance Factors Limiting Gait Function Factors Limiting Gait Function Decreased Activity Tolerance, Decreased Sensation,Decreased Strength,Pain Comments Gait Comments see mobility section PT-Balance Assessment Sitting Balance and Reactions Static Sitting Balance Ability Good Dynamic Sitting Balance Ability Fair Standing Balance and Reactions Static Standing Balance Ability Fair Dynamic Standing Balance Ability Fair Device Used FWW M5 PT-IP Objective Assessments Start: 02/27/20 12:59 Freq: NEEDED Status: Active Protocol: Document 02/27/20 10:41 AB (Rec: 02/27/20 13:13 AB [id number]) Orientation Orientation/Cognition Level of Alertness Alert Orientation Name,Place,Situation Language Function Ability No Deficits Noted Safety Awareness Understands Safety Issues Memory Description No Deficits Noted Gross Range of Motion Lower Extremity ROM Assessment Within Functional Limits Strength Lower Extremity Strength Assessment Right Impaired Hip 3-/5 Knee 3+/5 Coordination Assessment Gross Coordination Gross Coordination WNL Sensation Assessment Sensation Gross Sensation Right LE Impaired Light Touch Impaired Proprioception (Position) Impaired Sensation Description Numbness M6 PT-IP Treatment Start: 02/27/20 12:59 Freq: NEEDED Status: Active Protocol: Document 02/29/20 10:42 CLB (Rec: 02/29/20 11:38 CLB [id number]) Physical Therapy Treatment Exercises Exercises Ankle Pumps,Seated Knee Flexion/Extension Education Education Provided Precautions,Safety M7 PT-IP Assessment and Plan Start: 02/27/20 12:59 Freq: NEEDED Status: Active Protocol: Document 03/01/20 13:27 CLB (Rec: 03/01/20 15:47 CLB [id number]) PT Summary Assessment and Plan Potential Rehabilitation Potential Good Status of Condition at Evaluation Evolving Summary Impairments Pain,ROM,Strength,Balance, Coordination,Sensation,Tone, Cognition,Bed Mobility, Transfers,Gait,Activity Tolerance Progress Towards Goals Progressing Toward Goals Assessment Summary Pt is SBA for all mobilty, pt has steady gait and good safety awareness and is able to assist pt with all mobility needs. Pt will need stair training with present before d/c. Goals Bed Mobility Goal Independent Transfer Goal Independent,Front Wheeled Walker Gait Goal Independent,Front Wheel Walker Gait Distance 50 Other Goals improve ambulation without AD 200 ft SBA up/down 2 steps without AD sBA Days to Meet Goals 10 Frequency of Treatment Frequency Of Treatment Once a Day Treatment Plan Physical Therapy Treatment Plan Bed Mobility Training,Transfer Training,Gait Training, Therapeutic Exercise,Balance Retraining,Post Op Education, Discharge Planning,Hot or Cold Pack,Neuromuscular Re-ed, Coordination Retraining Other Recommendations and Next Treatment stair training 2 steps no Focus rails, INTELLIGENCE SPECIALIST from and gait. Recommendations To Nursing Amount of Assist Needed Standby Assistance Discharge Recommendations PT Discharge Recommendations Home with Assistance,Home Health Equipment Needed for Home Before FWW if not safe without AD Discharge Transportation Needs at Discharge Private Vehicle
--- NOTE | 2020-03-01 14:08 | OT.IP.TRT ---
Current Diagnoses Unspecified intestinal obstruction, unspecified as to partial versus complete obstruction (02/25/20) Generalized abdominal pain (02/25/20) Ileostomy status (02/25/20) Other specified postprocedural states (02/25/20) Surgery Performed Operation Date: 02/25/20 15:45 Actual Procedures p Colonoscopy with biospies(Left) - Wesley Gonzalez MD Operation Date: 02/26/20 07:45 Actual Procedures p Exploratory Laparotomy GEN, BOWEL RESECTION, LOOP ILEOSTOMY, INCIDENTAL APPENDECTOMY(Not Applicable) - Wesley Gonzalez MD Occupational Therapy Treatment Note M2 OT-IP Current Condition Start: 02/27/20 17:22 Freq: Status: Active Protocol: Document 02/27/20 15:30 CCC (Rec: 02/27/20 17:50 CCC [id number]) Occupational Therapy Current Condition Current Condition Evaluation Date 02/27/20 Treatment Diagnosis Large Bowel Obstruction s/p clectomy/ileostomy, decreased mobility Diagnosis Onset Date 02/25/20 Post Operative Precautions Abdominal Surgery Precautions Log Roll,Lifting Restrictions, Gait Belt above Incisional Area M3 OT- IP Subjective and Pain Start: 02/27/20 17:22 Freq: Status: Active Protocol: Document 03/01/20 14:13 CGR (Rec: 03/01/20 14:21 CGR [id number]) OT- Subjective Occupational Therapy Visit Type Type Progress Note Visit Start Time 13:40 Visit Stop Time 14:08 Total Visit Minutes 28 Notes Pt's present throughout session. OT Pain Assessment Pain When Pain Assessed During Mobility Pain Present Pain Present Denied Pain M4 OT- IP ADL's Start: 02/27/20 17:22 Freq: Status: Active Protocol: Document 03/01/20 14:13 CGR (Rec: 03/01/20 14:21 CGR [id number]) OT QIV-Tasa-Ajeswpl Comments OT Self-Feeding Comments not meal time OT ADL-Grooming Comments OT Grooming Comments not performed OT ADL-Oral Care Comments Oral Care Comments not performed OT ADL-Dressing General Eval Lower Body Dressing Ability Standby Assistance Areas Needing Assistance Underpants/Brief,Socks Assistive Devices Dressing Assistive Devices Health Safety Specialist,Sock Aid Comments OT Dressing Comments Pt educated on use of vacuum drier operator and sock aid. Pt donned socks and underwear using vacuum drier operator. OT ADL-Toileting Comments OT Toileting Comments not performed OT ADL-Bathing Bathing Type Bathing Type Shower General Evaluation Bathing Ability Standby Assistance Areas Needing Assistance Retrieving/Setting Up Items Devices Bathing Equipment Hand Held Shower Sprayer Comments OT Bathing Comments Pt performed showering with SBA. Pt doing well in shower and left with to finish shower with nursing approval. M5 OT- IP IADL's Start: 02/27/20 17:22 Freq: Status: Active Protocol: Document 02/27/20 15:30 [facility] (Rec: 02/27/20 17:50 [facility] [id number]) OT-Instrumental Activities of Daily Living Home Safety Awareness Awareness of Need for Assistance at Home Good Awareness Home Safety Comments At this time pt will be dependent on her family to assist her with all ADl and IADl needs. M6 OT- IP Functional Cognition Start: 02/27/20 17:22 Freq: Status: Active Protocol: Document 03/01/20 14:13 CGR (Rec: 03/01/20 14:21 CGR [id number]) Cognitive Factors Limiting Selfcare Function Cognitive Ability Level of Alertness Alert Patient Orientation Name,Age,Birthday,Month,Date, Year,Day of Week,Place, Situation Attention Span Ability Capable of Focused Attention, Capable of Sustained Attention Ability to Follow Commands Able to Follow Multi-Step Commands Memory Description No Deficits Noted Safety Awareness No Deficits Noted Problem Solving Ability No deficits Noted Executive Function Ability No Deficits Noted Abstract Thinking Ability No Deficits Noted OT- Vision and Hearing OT- Hearing Assessment OT- Hearing Assessment WFL OT- Vision Assessment Visual Acuity WFL M7 OT- IP Mobility and Balance Start: 02/27/20 17:22 Freq: Status: Active Protocol: Document 03/01/20 14:13 CGR (Rec: 03/01/20 14:21 CGR [id number]) OT-Transfer Assessment Sit to and From Stand Sit to and from Stand Standby Assistance Transfers Transfer Ability Standby Assistance Technique Transfer Destination Bedside Commode,Chair,Shower Stall Transfer Technique Stand Step Pivot Devices Transfer Assistive Devices Gait Belt,Front Wheeled Walker Comments Mobility Comments FWW around room and into shower for seated shower. OT- Gait Assessment Gait Gait Assistance Required: Standby Assistance Assistive Devices Assistive Device Gait Belt,Front Wheeled Walker Comments Gait Ability Comments Pt SBA with mobility in the room. OT- Balance Assessment Sitting Balance and Reactions Static Sitting Balance Ability Normal Dynamic Sitting Balance Ability Normal Standing Balance and Reactions Static Standing Balance Ability Normal Dynamic Standing Balance Ability Normal M8 OT- IP Objective Assessments Start: 02/27/20 17:22 Freq: Status: Active Protocol: Document 02/27/20 15:30 CCC (Rec: 02/27/20 17:50 CCC [id number]) OT Gross Range of Motion Upper Extremity Range of Motion Assessment Within Functional Limits OT Strength Upper Extremity Strength Assessment Within Functional Limits M9 OT- IP Assessment and Plan Start: 02/27/20 17:22 Freq: Status: Active Protocol: Document 03/01/20 14:13 CGR (Rec: 03/01/20 14:21 CGR [id number]) OT Summary Assessment and Plan Potential Rehabilitation Potential Excellent Analytic Complexity at Evaluation Low Summary OT Impairments Pain,Strength,Balance, Functional Mobility,Grooming, Dressing,Toileting,Bathing, Toilet Transfers,Shower Transfers,Activity Tolerance Progress Towards Goals Slow Progress due to Pain,Slow Progress due to Medical Issues,Slow Progress due to Activity Tolerance Assessment Summary Pt low complexity with s/p colectyomy/ileostomy after large bowel obstruction and now ambulating with SBA. Pt is progressing well and is planned for d/c tomorrow. No further OT needs. Goals Grooming Goal Independent Dressing Goal Independent Toileting Goal Independent Bathing Goal Independent Toilet Transfer Goal Independent Shower Transfer Goal Independent Patient/Caregiver Education Goal Demonstrate Post-Op Precautions,Caregiver Independent Assisting Patient Days to Meet Goals 20 Frequency of Treatment Frequency Of Treatment Once a Day Treatment Plan OT Treatment Plan ADL Training,Functional Mobility,Patient/Family Education,Discharge Planning Other Treatment Recommendations and Next Review LB dressing if Treatment Focus necessary. Discharge Recommendations OT Discharge Recommendations Home with Assistance Home Equipment Needs has secured a tub transfer bench for home use. Transportation Needs at Discharge Private Vehicle
[2020-03-01] MEDS: ONDANSETRON 4 MG/2 ML INJ IV (18:03)
[2020-03-01] MEDS: ENOXAPARIN 40 MG/0.4 ML SYRINGE SUBCUT (18:03)
[2020-03-01] MEDS: SERTRALINE 50 MG TABLET 100 MG PO (20:48)
[2020-03-02] VITALS: O2SAT 94
[2020-03-02 00:09] VITALS: BP 105/67; PULSE 81; RESP 18; TEMP 36.6; O2SAT 94
[2020-03-02] MEDS: LORazepam 0.5 MG TABLET PO ×3 (02:12→11:20)
[2020-03-02] MEDS: OXYCODONE/ACETAMINOPHEN 5/325 TABLET 1 TAB PO ×3 (02:12→11:20)
[2020-03-02 05:32] LABS: Add Manual Diff / Slide Review NO; Basophils Absolute Auto 0 /uL (0-100); Basophils Percent Auto 0.4 % (0-2); Eosinophils Absolute Auto 300 /uL (0-450); Hematocrit 29.6 % (36-46); Hemoglobin 10.1 g/dL (12.0-16.0); Lymphocytes Absolute Auto 900 /uL (1100-4500); Lymphocytes Percent Auto 14.4 % (25-40); Mean Corpuscular HGB Conc 34.1 % (30-36); Mean Corpuscular Hemoglobin 29.6 PG (26-34); Mean Corpuscular Volume 86.7 fL (80-100); Monocytes Absolute Auto 500 /uL (0-900); Monocytes Percent Auto 8.2 % (3-14); Neutrophils Absolute Auto 4600 /uL (1500-7000); Platelet Count 240 X10^3/uL (150-400); Red Blood Cell Count 3.41 X10^6/uL (4.0-5.2); Red Cell Distribution Width 12.2 % (11.6-14.8); White Blood Cell Count 6.4 X10^3/uL (4.5-11.0)
[2020-03-02 05:45] LABS: BUN Creatinine Ratio 11.7 (6-22); Blood Urea Nitrogen 7 mg/dL (7-17); Carbon Dioxide 29 mmol/L (22-32); Chloride 103 mmol/L (98-107); Estimated Glomerular Filt Rate > 60.0 mL/min (>60); Glucose 89 mg/dL (70-100); HEMOLYSIS < 15 (0-50); Magnesium 1.9 mg/dL (1.6-2.3); Phosphorous 3.3 mg/dL (2.5-4.5); Sodium 136 mmol/L (137-145)
[2020-03-02] MEDS: PANTOPRAZOLE 20 MG TABLET PO (06:13)
[2020-03-02] MEDS: KETOROLAC 30 MG/ML VIAL IV (06:13)
[2020-03-02 06:24] VITALS: O2SAT 94
[2020-03-02 08:00] VITALS: BP 109/67; PULSE 77; RESP 18; TEMP 36.6; O2SAT 96; O2SAT 97
--- NOTE | 2020-03-02 08:33 | PC.NURSE ---
Addendum entered by Carmen Sim R.N. 03/02/20 11:37: pt preparing for discharge- reviewed dcp at length with both pt and spouse/caregiver- medicated prior to leaving the hospital and discharged at this time Original Note: INITIAL ASSESSMENT COMPLETE- pt reported not sleeping well at all last pm- did report both incisional pain and sensations of a full rectum-reporting she has passed 2 small stools rectally- per her request, she was medicated for this discomfort and with lorazepam for her anxiety and allowed to nap this am after taking some breakfast -
--- NOTE | 2020-03-02 09:29 | OT.IP.TRT ---
Current Diagnoses Unspecified intestinal obstruction, unspecified as to partial versus complete obstruction (02/25/20) Generalized abdominal pain (02/25/20) Ileostomy status (02/25/20) Other specified postprocedural states (02/25/20) Surgery Performed Operation Date: 02/25/20 15:45 Actual Procedures p Colonoscopy with biospies(Left) - Wesley Gonzalez MD Operation Date: 02/26/20 07:45 Actual Procedures p Exploratory Laparotomy GEN, BOWEL RESECTION, LOOP ILEOSTOMY, INCIDENTAL APPENDECTOMY(Not Applicable) - Wesley Gonzalez MD Occupational Therapy Treatment Note M2 OT-IP Current Condition Start: 02/27/20 17:22 Freq: Status: Active Protocol: Document 02/27/20 15:30 CCC (Rec: 02/27/20 17:50 CCC [email or web address]) Occupational Therapy Current Condition Current Condition Evaluation Date 02/27/20 Treatment Diagnosis Large Bowel Obstruction s/p clectomy/ileostomy, decreased mobility Diagnosis Onset Date 02/25/20 Post Operative Precautions Abdominal Surgery Precautions Log Roll,Lifting Restrictions, Gait Belt above Incisional Area M3 OT- IP Subjective and Pain Start: 02/27/20 17:22 Freq: Status: Active Protocol: Document 03/02/20 11:45 CGR (Rec: 03/02/20 11:46 CGR [id number]) OT- Subjective Occupational Therapy Visit Type Type Administrative Note Notes Attempted to see pt for OT services. Pt declined further needs stating that she feels comfortable with the hip kit and LB dressing and feels prepared for discharge home which is planned for today. All questions answered. No Ot services rendered on this date .
--- NOTE | 2020-03-02 11:22 | PT-IP ANOTE ---
Pt and refused stair training stating they just want to get home and feel like they will be able to manage the two stairs.
--- NOTE | 2020-03-02 13:11 | PM.DS.1 ---
History of Present Illness History of Present Illness Chief complaint: CONSTIPATION/ABD PAIN 5-9/10 NAUSEA X3DAYS Narrative: 34-year-old woman seen in the emergency room for consultation of a large-bowel obstruction. For the past 5 days she has had worsening abdominal pain and distension and has had no bowel movement in the past 4 days no flatus. She is nauseous no emesis. For the past several months she has noticed change in her bowel habits she has been having frequent episodes of diarrhea as well as some vague abdominal pain. Today she underwent a CT of the abdomen pelvis that demonstrates a large bowel obstruction there is significant wall thickening of the sigmoid colon and some associated free fluid. Vital signs are within limits laboratory studies are unremarkable. She has no significant past medical history. No family history of intestinal malignancy or inflammatory bowel disease. Discharge Providers Provider Date of admission: 02/25/20 14:37 Discharge Date: 03/02/20 Primary care physician: Mundo Patricio DO Consults: 02/26/20 20:16 Consult to Discharge Planning Routine Comment: Consult to Occupational Therapy Evaluate & Treat Comment: Physician Instructions: Evaluate and treat Consult to Ostomy Specialist Routine Comment: Bowel obstruction sigmoidectomy loop ileostomy Consulting Provider: Consult to Physical Therapy Evaluate & Treat Comment: Physician Instructions: Evaluate and Treat Discharge provider: Wesley Gonzalez MD Summary Hospital Course Discharge Diagnosis: Large bowel obstruction Endometriosis Hospital Course: 02/25/2020 patient underwent a sigmoidoscopy which demonstrated a circumferential mass within the distal sigmoid colon. The following day the patient underwent a laparoscopic assisted sigmoid colectomy with diverting loop ileostomy and appendectomy. She was monitored in the intensive care unit postoperatively because she had an epidural catheter which required ICU management. Her diet was gradually advanced. She received ostomy training. On the date of discharge 03/02 she is feeling well she is afebrile without leukocytosis she is managing her ostomy appropriately. She has a GREGORIO drain in the left lower quadrant productive of serous fluid which will remain in until she is seen in the clinic in 1 week time. Pathology preliminary demonstrates endometriosis of the large bowel and within the appendix. There was no evidence of malignancy. Status at Discharge Cognitive/behavioral status at discharge: oriented Functional status at discharge: independent ambulation Overall status at discharge: patient is back to baseline Exam Vital Signs (past 8 hours): - 03/02/20 06:24 03/02/20 08:00 Temperature 97.8 F Pulse Rate 77 Respiratory Rate 18 Blood Pressure 109/67 Pulse Oximetry 94 96 Oxygen Delivery Method Room Air Oxygen Flow Rate 0 Narrative Exam Narrative: General-no acute distress, well nourished HEENT-moist mucous membranes, no scleral icterus Neck-supple, no lymphadenopathy Chest- non labored respirations, clear to auscultation bilaterally Cardiac-regular rate no peripheral edema Abdomen-soft, midline incision clean dry intact with ran, GREGORIO drain left lower quadrant serous. Ileostomy productive Extremities-warm, well perfused Neurological-alert and oriented, no focal deficits Objective Labs Result Diagrams: 03/02/20 04:47 03/02/20 04:47 Labs: Laboratory Results - last 24 hr 03/02/20 03/02/20 04:47 04:47 WBC 6.4 RBC 3.41 L Hgb 10.1 L Hct 29.6 L MCV 86.7 MCH 29.6 MCHC 34.1 RDW 12.2 Plt Count 240 Neut % (Auto) 72.0 Lymph % (Auto) 14.4 L [place] % (Auto) 8.2 Eos % (Auto) 5.0 H Baso % (Auto) 0.4 Neut # (Auto) 4600 Lymph # (Auto) 900 L [place] # (Auto) 500 Eos # (Auto) 300 Baso # (Auto) 0 Sodium 136 L Potassium 4.0 Chloride 103 Carbon Dioxide 29 BUN 7 Creatinine 0.60 Estimated GFR > 60.0 BUN/Creatinine Ratio 11.7 Glucose 89 Calcium 8.0 L Phosphorus 3.3 Magnesium 1.9 Discharge Plan Discharge Plan Patient Disposition: Home Discharge orders & Medications Prescriptions: New acetaminophen 325 mg Tablet 650 mg PO Q6HR PRN (Reason: Fever/Mild Pain (1-3)) Qty: 60 RF: 0 loperamide 2 mg Capsule 2 mg PO PRN PRN (Reason: Diarrhea) Qty: 90 RF: 0 lorazepam 0.5 mg Tablet 0.5 mg PO Q4HR PRN (Reason: Anxiety) Qty: 30 RF: 0 sertraline [Zoloft] 50 mg Tablet 100 mg PO BEDTIME Qty: 90 RF: 0 oxycodone 5 mg tablet 5 mg PO Q6H PRN (Reason: pain) Qty: 60 RF: 0 Continued ibuprofen 200 mg Tablet 400 mg PO Q6H PRN (Reason: Pain (Scale Score 1-3)) RF: 0 diphenhydramine-acetaminophen [Tylenol PM Extra Strength] 25-500 mg Tablet 2 tab PO BEDTIME RF: 0 Follow up/Referrals: Wesley Gonzalez MD [Physician] - Mundo Patricio DO [Primary Care Provider] - Diet/Activity/Treatments Diet: Regular Activity: No driving while taking narcotics. No lifting >20 lbs for 4 weeks. Skin/Wound/Dressing Care Report to your healthcare provider any signs of infection, such as:: chills, fever, increased pain, unusual drainage and unusual redness Visit Report/Discharge Packet Instructions: [facility]: Wound Care Stand Alone Forms: Surgery Discharge Visit Report Forms: Patient Portal/API, Stroke Signs & Symptoms Discharge Data Primary Care Provider: Mundo Patricio Discharges patient from system. Discharge Date/Time: 03/02/20 12:00 Quality VTE Deep Vein Thrombosis/Pulmonary Embolism Present on Admission: No
== END 2020-03-02 12:00 | disposition home or self-care (01) | DRG 330 ==
LOC: ED 13:56 → AC 14:37 → ICU 02-26 11:47
PROVIDERS: Emergency Medicine; Surgery; Admitting Provider Surgery; Emergency Provider Student in an Organized Health Care Education/Training Program; PCP Family Medicine; Referring Provider Student in an Organized Health Care Education/Training Program; Visit Provider Surgery
PROC: 0DJD8ZZ Inspection of Lower Intestinal Tract, Via Natural or Artificial Opening Endoscopic (ICD-10-PCS; CPT 45378; principal; 2020-02-25 15:45)
PROC: 0DTN0ZZ Resection of Sigmoid Colon, Open Approach (ICD-10-PCS; CPT 49000; principal; 2020-02-26 07:45)
DX: N80.5 Endometriosis of intestine (principal); K56.609 Unspecified intestinal obstruction, unspecified as to partial versus complete obstruction; N80.8 Other endometriosis; Z11.59 Encounter for screening for other viral diseases
CPT/HCPCS: 36415; 44146; 45335; 45388; 74018; 74177; 80048; 80053; 81003; 81015; 81025; 82565; 83690; 83735; 84100; 85025; 85610; 85730; 87502; 87635; 87797; 96361; 96374; 96375; 97116; 97162; 97165; 97530; 97535; 99222; 99285; C9113; C9290; J1100; J1170; J1650; J1885; J2060; J2250; J2270; J2405; J2543; J2704; J3010; Q9967

== ENCOUNTER → 2020-04-15 12:34 | Outpatient (CLI) | payer OTHER, SELFPAY ==
[2020-02-25 19:11] VITALS: BMI 28.3
--- NOTE | 2020-04-15 12:37 | DI.RAD.S_ITS ---
PROCEDURE: FL BARIUM ENEMA INDICATIONS: preop for sigmoid colostomy reversal COMPARISON: [facility], CR, XR ABDOMEN 1V, 02/25/2020, 10:31. [facility], CT, CT ABDOMEN PELVIS W CON, 02/25/2020, 12:57. FINDINGS: KUB: Preprocedural production artist film demonstrates a normal bowel gas pattern. No suspicious abdominal calcifications. Visualized solid organ contours appear normal in size. No suspicious bony lesions. There is a colostomy in the right iliac area. Colon: There is adequate opacification of the entire colon. There is focal narrowing in the distal sigmoid colon suspicious for a stricture. No colonic fistulae or perforations. There overall colon caliber appears normal. There is incomplete ileocecal valve with contrast reflux into the distal small intestine. IMPRESSION: 1. Focal stricture in the distal sigmoid colon at the sigmoid rectal junction suspicious for a stricture. Dictated by: Betty Hooper M.D. on 04/15/2020 at 14:54 Approved by: Betty Hooper M.D. on 04/15/2020 at 14:58
== END ==
PROVIDERS: PCP Family Medicine; Referring Provider Surgery; Visit Provider Surgery
DX: Z01.818 Encounter for other preprocedural examination (principal); Z93.2 Ileostomy status; K56.609 Unspecified intestinal obstruction, unspecified as to partial versus complete obstruction
CPT/HCPCS: 74270

== ENCOUNTER → 2020-04-23 09:11 | Outpatient (CLI) | payer OTHER, SELFPAY ==
[2020-04-22 15:48] VITALS: BMI 28.3
[2020-04-23 10:39] LABS: COVID19 -Nasal RAPID Negative (Negative)
== END ==
PROVIDERS: PCP Family Medicine; Visit Provider Surgery
DX: Z11.59 Encounter for screening for other viral diseases (principal); Z01.812 Encounter for preprocedural laboratory examination
CPT/HCPCS: 87635; C9803

== ENCOUNTER 2020-04-26 07:14 | Day surgery (SDC) | payer OTHER, SELFPAY ==
[2020-04-22 15:48] VITALS: BMI 28.3
[2020-04-26] VITALS (10 sets, daily range): BP systolic 101–123; BP diastolic 69–89; PULSE 72–94; RESP 14–19; TEMP 36.2–36.9; O2SAT 97–100; BMI 25.7
--- NOTE | 2020-04-26 | DI.RAD.S_ITS ---
PROCEDURE: XR ACUTE ABDOMEN SERIES INDICATIONS: abdominal pain TECHNIQUE: One view chest and two views of the abdomen were acquired. COMPARISON: [facility], RF, [place] BARIUM ENEMA, 04/15/2020, 11:59. [facility], CT, CT ABDOMEN PELVIS W CON, 02/25/2020, 12:57. FINDINGS: Surgical changes and devices: What appears to be an ostomy site overlies the lower right abdomen centered just above the iliac crest.. Chest: Lungs are clear. Heart size is normal. No pleural effusions. No pneumoperitoneum. Abdomen: Bowel gas pattern is normal. No suspicious calcifications. Visualized solid organ contours appear normal. Bones: No suspicious bony lesions. IMPRESSION: Nonspecific bowel gas pattern. Apparent ostomy site right lower abdomen. Dictated by: Maikel Navarro M.D. on 04/26/2020 at 10:03 Approved by: Maikel Navarro M.D. on 04/26/2020 at 10:06
[2020-04-26] MEDS: LACTATED RINGERS 1,000 ML 200 ML IV (07:28)
--- NOTE | 2020-04-26 07:43 | PM.HP.1 ---
History of Present Illness History of Present Illness Date Patient Seen: 04/26/20 Time Patient Seen: 07:43 Chief complaint: DX COLONOSCOPY Narrative: 34-year-old female well known to me. She underwent a sigmoid colectomy with diverting ileostomy for a large bowel obstruction secondary to endometriosis. She is here today prior to ileostomy reversal. She underwent a barium enema demonstrated no leak but there was a narrowing at her colonic anastomosis. She is here for a colonoscopy possible dilation. No recent changes to health Patient History Medical History Chicken pox (~1995) Endometriosis Vitamin D deficiency Surgical History Hx of ileostomy Family & Social History Family History Father Hypertension Grandfather Diabetes mellitus Grandfather Stroke Social History: household members spouse Tobacco & Substance use: Smoking Status Never smoker alcohol intake current alcohol intake frequency a few times a month Substance Use Type does not use Meds Home Medications and Allergies Home Medications Medication Instructions Recorded Confirmed Type diphenhydramine-acetaminophen 2 tab PO BEDTIME 02/25/20 04/26/20 History [Tylenol PM Extra Strength] ibuprofen 400 mg PO Q6H PRN 02/25/20 04/26/20 History acetaminophen 650 mg PO Q6HR PRN #60 tab 03/02/20 04/26/20 Rx norelgestromin 150 mcg-e.estradiol 1 patch TRANSDERMAL QWEEK #3 each 03/17/20 04/26/20 Rx 35 mcg/24 hr weekly transderm patch Allergies Allergy/AdvReac Type Severity Reaction Status Date / Time No Known Drug Allergies Allergy Verified 04/26/20 07:09 Review of Systems Review of Systems Narrative: A 10 point review of systems is negative except as noted in the HPI Exam Vital Signs (past 8 hours): - 04/26/20 07:10 Temperature 98.0 F Pulse Rate 75 Respiratory Rate 15 Blood Pressure 102/69 Pulse Oximetry 100 Oxygen Delivery Method Room Air Narrative Exam Narrative: General-no acute distress, well nourished HEENT-moist mucous membranes, no scleral icterus Neck-supple, no lymphadenopathy Chest- non labored respirations, clear to auscultation bilaterally Cardiac-regular rate no peripheral edema Abdomen-soft, ileostomy viable productive Extremities-warm, well perfused Neurological-alert and oriented, no focal deficits Assessment & Plan Assessment & Plan narrative: 34-year-old female status post sigmoid colectomy with diverting ileostomy with a colonic stricture. She is here today for colonoscopy possible dilation. Technical details were discussed. I told her we would most likely start with the EGD scope possible balloon dilatation. We discussed the risks including bleeding infection colonic perforation. I told her that if were unsuccessful than at the time of her ileostomy reversal perform a resection and revision of her colonic anastomosis. Questions answered she is in agreement with this plan.
[2020-04-26] MEDS: MIDAZOLAM 5 MG/5 ML VIAL IV (08:15)
[2020-04-26] MEDS: fentaNYL 250 MCG/5 ML INJ IV (08:15)
--- NOTE | 2020-04-26 08:16 | PM.OP.ENDO ---
Operative Date/Time/Diagnoses Date of procedure: 04/26/20 Time of procedure: 08:16 Pre-op diagnosis: Anastomotic stricture Post-op diagnosis: same Procedure & Clinicians Study performed: Endoscopic dilatation of colonic anastomotic stricture Same procedure as scheduled: Yes Indications: 34-year-old female who underwent a sigmoid colectomy with diverting loop ileostomy for a large bowel obstruction secondary to endometriosis. Preoperative ileostomy reversal barium enema demonstrates a anastomotic stricture she is here today for colonic dilatation Surgeon: Wesley Gonzalez Procedure Notes SCOAP/Timeout: Performed Procedure in detail: Medications: Conscious sedation using 9 mg IV midazolam and 250 mcg IV of fentanyl The history and physical was performed/updated and the patient is ASA class is 2. The procedure was discussed in detail with the patient. Potential risks complications including infection, bleeding, missed diagnosis, perforation, need for surgery, and were explained. Their questions were answered and informed consent was obtained. Patient was brought to the procedure room and placed standard monitoring equipment. The patient's vital signs were monitored continuously throughout the entire procedure. Prior to starting time-out was performed. The patient was placed in the left lateral recumbent position. Procedural sedation was administered. Examination began with a thorough inspection of the perianal area there was no evidence of fissures, fistulae, external hemorrhoids or cutaneous malignancy. The EGD scope was then placed into the anal canal and advanced to the colonic anastomosis which was at approximately 20 cm. I was able to transverse the stricture using the EGD scope. The stricture was then serially dilated using the balloon dilators 1st 10 mm, then 12 and finally 15 mm. The 15 mm balloon was just slightly smaller than the proximal colon. Patient tolerated the procedure well The patient tolerated the procedure well. They will be discharged once criteria are met. The sedation time was 25 minutes. Complications: none Impression: successful dilation of colonic anastamotic stricture Post-procedure Plan for aftercare: ileostomy reversal next week. Disposition: same day surgery
[2020-04-26] MEDS: MORPHINE 4 MG/ML INJ 2 MG IV ×2 (09:38→09:53)
--- NOTE | 2020-04-26 10:10 | SUR.PHASEII ---
0940-Pt to xray for stat acute abdominal series, pt in pain after 1st dose of Morphine 2mg IV, called into room to get order for 2nd dose and order received, will give to pt after pt returns.
--- NOTE | 2020-04-26 10:12 | SUR.PHASEII ---
0953-Pt back from xray and still in pain so 2nd dose of Morphine given iv
--- NOTE | 2020-04-26 10:14 | SUR.PHASEII ---
0957-Pt states pain much better now and a 4 out of 10, resting comfortably
--- NOTE | 2020-04-26 10:59 | SUR.PHASEII ---
1040-Pt dcd in stable condition via wc with at side, all dc instructions given to both and both verbalize understanding
--- NOTE | 2020-04-26 11:01 | SUR.PHASEII ---
iv to right hand dcd and site clear
== END 2020-04-26 10:40 | disposition home or self-care (01) ==
PROVIDERS: PCP Family Medicine; Referring Provider Family Medicine; Visit Provider Surgery
PROC: 0DJD8ZZ Inspection of Lower Intestinal Tract, Via Natural or Artificial Opening Endoscopic (ICD-10-PCS; CPT 45378; principal; 2020-04-26 07:45)
DX: K56.600 Partial intestinal obstruction, unspecified as to cause (principal); N80.9 Endometriosis, unspecified; Z93.2 Ileostomy status
CPT/HCPCS: 45340; 74022; J2250; J2270; J3010

== ENCOUNTER → 2020-05-03 09:36 | Outpatient (CLI) | payer OTHER, SELFPAY ==
[2020-04-22 15:48] VITALS: BMI 28.3
[2020-05-03 10:44] LABS: COVID19 -Nasal RAPID Negative (Negative)
== END ==
PROVIDERS: PCP Family Medicine; Visit Provider Surgery
DX: Z01.812 Encounter for preprocedural laboratory examination (principal); Z11.59 Encounter for screening for other viral diseases
CPT/HCPCS: 87635; C9803

== ENCOUNTER 2020-05-04 06:02 | Inpatient (IN) | payer OTHER, SELFPAY ==
[2020-02-25 19:11] VITALS: BMI 28.3
[2020-04-22 15:48] VITALS: BMI 28.3
[2020-04-30 14:08] VITALS: BMI 25.7
[2020-05-04] VITALS (32 sets, daily range): BP systolic 99–138; BP diastolic 59–94; PULSE 70–115; RESP 10–20; TEMP 36.1–36.8; O2SAT 94–100; BMI 27.2
[2020-05-04] MEDS: LACTATED RINGERS 1,000 ML 100 ML IV ×2 (07:07→09:18)
--- NOTE | 2020-05-04 07:31 | PM.HP.1 ---
History of Present Illness History of Present Illness Date Patient Seen: 05/04/20 Time Patient Seen: 07:31 Chief complaint: ILEOSTOMY REVERSAL W/MONICA & PELVIC W/ILAN Narrative: 34-year-old female well known to me. She had a large bowel obstruction secondary to endometriosis several months ago she underwent a exploratory laparotomy sigmoid colectomy with primary anastomosis and diverting ileostomy. She developed a anastomotic stricture identified with barium enema and last week she was successfully dilated endoscopically. She is here today for ileostomy reversal. Is currently feeling well no acute complaints Patient History Medical History Chicken pox (~1995) Endometriosis Vitamin D deficiency Surgical History Hx of ileostomy (03/03/20) Family & Social History Family History Father Hypertension Grandfather Diabetes mellitus Grandfather Stroke Social History: household members spouse Tobacco & Substance use: Smoking Status Never smoker alcohol intake current alcohol intake frequency a few times a month Substance Use Type does not use Meds Home Medications and Allergies Home Medications Medication Instructions Recorded Confirmed Type diphenhydramine-acetaminophen 2 tab PO BEDTIME 02/25/20 04/30/20 History [Tylenol PM Extra Strength] acetaminophen 650 mg PO Q6HR PRN #60 tab 03/02/20 04/30/20 Rx norelgestromin 150 mcg-e.estradiol 1 patch TRANSDERMAL QWEEK #3 each 03/17/20 05/04/20 Rx 35 mcg/24 hr weekly transderm patch Allergies Allergy/AdvReac Type Severity Reaction Status Date / Time No Known Drug Allergies Allergy Verified 04/26/20 07:09 Review of Systems Review of Systems Narrative: A 10 point review of systems is negative except as noted in the HPI Exam Vital Signs (past 8 hours): - 05/04/20 06:46 Temperature 98.1 F Pulse Rate 85 Respiratory Rate 16 Blood Pressure 99/68 Pulse Oximetry 99 Oxygen Delivery Method Room Air Narrative Exam Narrative: General-no acute distress, well nourished adult female HEENT-moist mucous membranes, no scleral icterus Neck-supple, no lymphadenopathy Chest- non labored respirations, clear to auscultation bilaterally Cardiac-regular rate no peripheral edema Abdomen-soft, ileostomy viable productive Extremities-warm, well perfused Neurological-alert and oriented, no focal deficits Assessment & Plan Assessment and plan (1) Ileostomy in place: Status: Acute Assessment & Plan narrative: 34-year-old female with a loop ileostomy status post sigmoid colectomy for large bowel obstruction secondary to endometriosis here for ileostomy reversal. She has anastomotic stricture which I dilated last week. Told her that today Dr. Tierney will begin the procedure with a diagnostic laparoscopy for evaluation of her endometriosis and then for my portion of the procedure will start with colonoscopy to evaluate the anastomosis. If the anastomosis has re-stenosed, then I will performed an exploratory laparotomy with revision of the anastomosis. However if the anastomosis is widely patent will will proceed with a traditional ileostomy reversal. Procedure risks including bleeding infection damage to surrounding structures anastomotic leak were discussed. Questions have been answered she is in agreement with this plan .
--- NOTE | 2020-05-04 07:36 | P.HP_ITS ---
History of Present Illness History of Present Illness Date Patient Seen: 05/04/20 Time Patient Seen: 07:36 Chief complaint: ILEOSTOMY REVERSAL W/MONICA & PELVIC W/ILAN Narrative: Patient is a 34-year-old 0 who presents for a takedown of an ileostomy. She had a portion of the colon removed due to endometriosis. In addition to the take down, we will perform a diagnostic laparoscopy with chromotubation and possible fulguration of endometriosis. Patient History Medical History Chicken pox (~1995) Endometriosis Vitamin D deficiency Surgical History Hx of ileostomy (03/03/20) Family & Social History Family History Father Hypertension Grandfather Diabetes mellitus Grandfather Stroke Social History: household members spouse Tobacco & Substance use: Smoking Status Never smoker alcohol intake current alcohol intake frequency a few times a month Substance Use Type does not use Meds Home Medications and Allergies Home Medications Medication Instructions Recorded Confirmed Type diphenhydramine-acetaminophen 2 tab PO BEDTIME 02/25/20 04/30/20 History [Tylenol PM Extra Strength] acetaminophen 650 mg PO Q6HR PRN #60 tab 03/02/20 04/30/20 Rx norelgestromin 150 mcg-e.estradiol 1 patch TRANSDERMAL QWEEK #3 each 03/17/20 05/04/20 Rx 35 mcg/24 hr weekly transderm patch Allergies Allergy/AdvReac Type Severity Reaction Status Date / Time No Known Drug Allergies Allergy Verified 04/26/20 07:09 Exam Vital Signs (past 8 hours): - 05/04/20 06:46 Temperature 98.1 F Pulse Rate 85 Respiratory Rate 16 Blood Pressure 99/68 Pulse Oximetry 99 Oxygen Delivery Method Room Air Narrative Exam Narrative: HEENT: No thyromegaly, no anterior cervical or supraclavicular lymphadenopathy. Lungs:Clear to auscultation bilaterally, no wheezes. Cardiovascular: Regular rate and rhythm, no murmurs, rubs, or gallops. Abdomen: Ileostomy. No hepatosplenomegaly. No masses palpable. External genitalia: Normal Vagina: Normal Cervix: Nulliparous Bimanual exam: 6 Week size uterus. Mobile. Uterosacral tenderness bilate rally Rectal: No masses. Assessment & Plan Assessment & Plan narrative: Assessment: 34-year-old 0 with known endometriosis, status post partial colon resection due to endometriosis. Scheduled for ileostomy takedown today. Plan: Diagnostic laparoscopy with chromotubation and possible fulguration of endometriosis The risks, benefits, and alternatives to the procedure were explained to the patient. The risks including bleeding, infection, injury to the bowel, bladder, or ureters. She understands these risks and agrees to proceed. A full par Q was held and consent form was signed. COVID-19 COVID-19 status: Negative Result date/Date tested (Pos, Neg/Pending): 05/03/20 Time Spent With Patient Time with patient: 15-24 minutes
--- NOTE | 2020-05-04 07:39 | PM.PREOP ---
Pre-operative Note COVID-19 COVID-19 status: Negative Result date/Date tested (Pos, Neg/Pending): 05/03/20 Interval Note History & Physical reviewed/Exam performed by Physician: Yes Changes to H&P: No H&P completed within 30 days and has changed as indicated here:: 05/04/20
[2020-05-04] MEDS: MIDAZOLAM 2 MG/2 ML VIAL IV (07:41)
[2020-05-04] MEDS: PIPERACILLIN-TAZO 3.375 GM/50 ML FROZ.PIGGY IV (07:45)
--- NOTE | 2020-05-04 08:36 | SUR.OPER ---
Lithotomy on padded OR bed, head on pillow, arms padded and tucked at sides. Legs secured in padded yellow fins stirrups.
[2020-05-04] MEDS: BUPIVACAINE 0.5% W/ EPI (PF) 30 ML VIAL INJ (09:04)
[2020-05-04] MEDS: BUPIVACAINE LIPOSOME 266 MG/20 ML VIAL INJ (10:13)
--- NOTE | 2020-05-04 10:58 | PM.OP.1 ---
Operative Date/Time/Diagnoses Date of procedure: 05/04/20 Time of procedure: 10:58 Pre-op diagnosis: ileostomy, anastamotic sticture, endometriosis Post-op diagnosis: same Procedure & Clinicians Procedure: Diagnostic laparoscopy, colonoscopy, exploratory laparotomy, lysis of adhesions Same procedure as scheduled: Yes Operative Notes Findings: Dense intra abdominal adhesions to abdominal wall and interloops of intestine, diffuse endometriosis to peritoneum and bowel wall including small and large bowel and uterus, colonic anastamotic stricture via colonoscopy. Specimen(s): none sent Estimated Blood Loss (mL): 20 Procedure in detail: Patient was brought to the operating room and placed supine on the table. Bilateral lower extremity compression devices were applied. Received 3.375 g of Zosyn prior to skin incision. General anesthesia was induced and she was intubated with an endotracheal tube. A agrawal catheter was placed. She was placed into lithotomy and appropriately padded. Time-out was performed. A supra umbilical incision was made the fascia was grasped elevated and sharply incised the abdomen was entered atraumatically. A 12 mm balloon trocar was then placed into the abdomen and pneumoperitoneum was established. There was no evidence of injury upon entry. Inspection of the abdomen demonstrated very dense adhesions principally in the left lower quadrant and the pelvis. There was diffuse endometriosis involving the abdominal wall, the colon, small bowel and the uterus. The pelvis was too frozen to allow inspection of the tubes and ovaries. Refer to Dr. Tierney's operative note for further detail. A colonoscopy was performed and this demonstrated an anastomotic stricture of the colon. 1 week ago I performed a colonoscopy and dilation of her anastamotic stricture with balloon dilation and the stricture had essentially reformed in the interval. A pediatric scope was unable to pass the lumen which was approximately 80% occluded. Given the anastamotic stricture I could not progress with ileostomy reversal without revising the anastamosis. The midline scar was incised the abdomen entered carefully. Open lysis of adhesions was sharply performed but despite this no significant progress could be made towards the pelvis or the left lower quadrant toward the anastamosis. On reflection, she had initially presented with a large bowel obstruction/stricture secondary to endometriosis which was resescted with sigmoid colectomy and diverting ileostomy two months ago. I was concerned that endometriosis could be the cause of her current colon anastamotic stricture given the extent of endometrial disease within the abdomen. After discussion with Dr Medel and Dr. Tierney we decided it would be most prudent not to proceed further. I thought it would be in her best interest to maximize the medical treatment of her endometriosis prior to proceeding with ileostomy reversal given the significant risks of intestinal injury given the dense adhesions and risk of recurrent bowel obstruction secondary to stricture. I spoke with her intraoperatively discussed these things which he agreed with. The abdomen was then carefully inspected for hemostasis. The peritoneum was infiltrated with local anesthetic. The fascia was then closed with running #1 PDS, the subcutaneous tissue with Vicrly, skin with monocryl followed by dermabond. She emerged from anesthesia was extubated and transferred to recovery room in stable condition. Complications: none
[2020-05-04] MEDS: LORazepam 2 MG/ML INJ 0.5 MG IV (11:19)
[2020-05-04] MEDS: HYDROMORPHONE 2 MG INJ IV ×3 (11:20→12:01)
--- NOTE | 2020-05-04 11:53 | SUR.PHASEI ---
Pt very tearful, somewhat agitated prior to 's arrival at bedside. VSS, afebrile. C/O pain, medicated with IV Dilaudid. IV Ativan given for anxiety with good result. Pt denied any nausea. Wound C\D\I.
--- NOTE | 2020-05-04 12:45 | PC.NURSE ---
Pt arrived via PACU. Oriented though drowsy. Aware she is now in her room . SO at bedside. Pt's surgical site intact, incision well approximated. Ileostomy appliance intact. IV site right forearm intact. VS's.
[2020-05-04] MEDS: SODIUM CHLORIDE 0.9% 1,000 ML 100 ML IV ×2 (13:04→23:16)
--- NOTE | 2020-05-04 13:43 | PC.NURSE ---
Day Shift- Report rec'd from CHILD NUTRITION MANAGER at 1220. Pt arrived to unit at 1238 via bed into room 216, Pt oriented to call light, bed functions. Pt positioned from side to side for nathan care and nathan pad changed. pt settled onto back with HOB at 15 degrees and pillow under BLE. Calf SCD's on. IVF infusing per post op Dr order. Abd umbilicus incision with dermabond and steri-strips, CDI, BT's to upper abd active, lower abd are hypoactive. No flatus present in Ileostomy pouch yet. Stoma is moist and red. Pt's Otoniel present in room, no further voiced concerns, pt states is very tired and wants to rest. Pain to abd 6/10 with movement, pain management plan discussed, wants to hold off on pain meds right now and rest after movement in bed. No urge to void. Pt started on ice chips, denies nausea. Call light within reach.
[2020-05-04] MEDS: OXYCODONE IR 5 MG TABLET PO ×2 (15:51→22:17)
[2020-05-04] MEDS: LORazepam 0.5 MG TABLET PO (16:40)
[2020-05-04] MEDS: ACETAMINOPHEN 325 MG TABLET 650 MG PO ×2 (17:44→23:40)
[2020-05-04] MEDS: KETOROLAC 30 MG/ML VIAL IV (19:24)
[2020-05-05] VITALS: BP 100/53; PULSE 85; RESP 18; TEMP 36.3; O2SAT 97
[2020-05-05 00:51] VITALS: O2SAT 97
[2020-05-05 04:00] VITALS: BP 99/52; PULSE 76; RESP 18; TEMP 36.4; O2SAT 97
[2020-05-05 04:19] VITALS: O2SAT 97
[2020-05-05] MEDS: ACETAMINOPHEN 325 MG TABLET 650 MG PO ×2 (04:49→11:41)
[2020-05-05] MEDS: KETOROLAC 30 MG/ML VIAL IV (04:50)
[2020-05-05 05:29] LABS: Add Manual Diff / Slide Review NO; Basophils Absolute Auto 100 /uL (0-100); Eosinophils Absolute Auto 100 /uL (0-450); Eosinophils Percent Auto 0.4 % (2-4); Hematocrit 32.4 % (36-46); Lymphocytes Absolute Auto 800 /uL (1100-4500); Lymphocytes Percent Auto 6.8 % (25-40); Mean Corpuscular HGB Conc 33.9 % (30-36); Mean Corpuscular Volume 85.4 fL (80-100); Monocytes Absolute Auto 700 /uL (0-900); Monocytes Percent Auto 5.7 % (3-14); Neutrophils Absolute Auto 10800 /uL (1500-7000); Neutrophils Percent Auto 86.1 % (50-75); Platelet Count 263 X10^3/uL (150-400); Red Blood Cell Count 3.79 X10^6/uL (4.0-5.2); Red Cell Distribution Width 12.7 % (11.6-14.8); White Blood Cell Count 12.5 X10^3/uL (4.5-11.0)
[2020-05-05 05:37] LABS: BUN Creatinine Ratio 16.7 (6-22); Blood Urea Nitrogen 10 mg/dL (7-17); Calcium 7.9 mg/dL (8.4-10.2); Carbon Dioxide 26 mmol/L (22-32); Chloride 105 mmol/L (98-107); Estimated Glomerular Filt Rate > 60.0 mL/min (>60); Glucose 114 mg/dL (70-100); HEMOLYSIS < 15 (0-50); Potassium 4.1 mmol/L (3.4-5.1); Sodium 133 mmol/L (137-145)
[2020-05-05] MEDS: HYDROMORPHONE 1 MG INJ IV (05:53)
[2020-05-05 07:30] VITALS: BP 99/53; PULSE 64; RESP 72; TEMP 36.7; O2SAT 99
--- NOTE | 2020-05-05 10:51 | CM.DANOTE ---
DCP: Case received, EMR reviewed and met with patient. , Raymon, was also at bedside. Introduced self and role. Was able to obtain some information from patient regarding her baseline activity level prior to hospitalization. DCP assessment completed with information currently available. Patient is a 34 year old female who admitted yesterday morning to the care of the surgical/OB tea. PCP: Dr. Patricio. Payer: confirmed: Shasha De La Vega. Patient came to the hospital via private vehicle for a surgical procedure. She was to have an ileostomy reversal, but according to surgical notes, was unable to perform, secondary to revising anastamosis. Patient has history of bowl obstruction, and during last hospital stay, had an ilestomy placed. Patient also has a significant history of endometriosis, and according to notes, part of her colon was removed secondary to endometriosis. She is also under the care of Dr. Roblero, who will also be seeing patient today. Met with patient in her room, with at bedside. She is pleasant, independent at baseline. She resides in [place] with her spouse. She is employed at [employer]. She is also expecting to see Dr. Roblero this morning as well. P: DCP to continue to follow, and will be available for any needs. Syl Fermin RN/Fire Information Officer
--- NOTE | 2020-05-05 11:24 | PC.NURSE ---
Patient will be discharging home soon. She denies pain, a bit teary eyed earlier this morning when talking about endometriosis. She has a stoma to her r.lower quadrant that is beefy red in color, slightly swollen, putting out brown liquid stool. She has a two part illeostomy bag that is in place and no leaks present. Kym also has a midline incision that is durmobonded with steri strips and cdi. Patient talked to both and and is clear to go home.
[2020-05-05] MEDS: OXYCODONE IR 5 MG TABLET PO (11:40)
== END 2020-05-05 12:01 | disposition home or self-care (01) | DRG 336 ==
PROVIDERS: Obstetrics & Gynecology; Admitting Provider Surgery; PCP Family Medicine; Referring Provider Student in an Organized Health Care Education/Training Program; Visit Provider Surgery
PROC: 0U5B4ZZ Destruction of Endometrium, Percutaneous Endoscopic Approach (ICD-10-PCS; CPT 58662; principal; 2020-05-04 07:45)
PROC: 0DNW0ZZ Release Peritoneum, Open Approach (ICD-10-PCS; CPT 44620; 2020-05-04 07:45)
DX: N80.5 Endometriosis of intestine (principal); K56.699 Other intestinal obstruction unspecified as to partial versus complete obstruction; K91.89 Other postprocedural complications and disorders of digestive system; Y83.2 Surgical operation with anastomosis, bypass or graft as the cause of abnormal reaction of the patient, or of later complication, without mention of misadventure at the time of the procedure; K66.0 Peritoneal adhesions (postprocedural) (postinfection); N80.3 Endometriosis of pelvic peritoneum; N80.0 Endometriosis of uterus; Z93.2 Ileostomy status
CPT/HCPCS: 36415; 45330; 49000; 80048; 81025; 82962; 85025; C9290; J0330; J1100; J1170; J1885; J2060; J2250; J2405; J2543; J2704; J3010

== ENCOUNTER → 2020-05-11 12:35 | Outpatient (CLI) | payer OTHER, SELFPAY ==
[2020-05-04 13:17] VITALS: BMI 27.2
--- NOTE | 2020-05-11 12:37 | DI.RAD.S_ITS ---
PROCEDURE: HL HYSTEROSAPINGOGRAPHY INDICATIONS: Endometriosis COMPARISON: None. FINDINGS: Patient had a documented negative test prior to the study. Following speculum insertion, a balloon-tip catheter was inserted into the cervical canal, and secured by inflating the balloon. Contrast was then injected into the endometrial canal. Uterus: The uterine cavity appears normal in size and morphology, without synechiae or masses. Fallopian tubes: Both fallopian tubes fill with contrast, and appear normal in caliber and morphology. There is ready dispersion of contrast into the peritoneal cavity. IMPRESSION: There was initial delay in opacification of the fallopian tubes and the peritoneal space immediately adjacent to the ovaries, bilaterally. Retrograde opacification of the fallopian tubes was then observed. The tube on the right is more deviated to the midline area, with overlap of the right cornu of the uterus delaying clear visualization of the entire length of the fallopian tube and spillage of contrast. The patient was rotated allowing clear visualization of each adnexa with free spillage of retrograde contrast into the peritoneal space adjacent to each ovary, with a successful completion of the procedure at that point. Dictated by: Maikel Navarro M.D. on 05/11/2020 at 14:08 Approved by: Maikel Navarro M.D. on 05/11/2020 at 14:14
--- NOTE | 2020-05-17 07:13 | PM.PROC.1 ---
Procedures Date/Time Date of procedure: 05/11/20 Time of procedure: 13:15 General Procedure description: Hysterosalpingogram The patient was taken to the fluoroscopy room. After informed consent was obtained, the patient was placed on the table with an overturned bedpan underneath her bottom. An open-sided bivalve speculum was placed into the vagina. The cervix was cleaned x3 with Betadine. A single-tooth tenaculum was placed on the anterior lip of the cervix. The hysterosalpingogram catheter was placed into the uterus. The balloon was filled with 3 cc of air. The open sided speculum was removed from the vagina. Under direct fluoroscopic examination, Isovue-300, approximately 12 cc, was injected into the hysterosalpingogram catheter. The contours of the uterus were normal. There was slight resistance initially, and then both tubes could be visualized and there was spill from both fimbriated ends. The contrast was removed from the uterus. The single-tooth tenaculum was removed from the anterior lip of the cervix. The patient tolerated the procedure fairly well. Complications: none
== END ==
PROVIDERS: PCP Family Medicine; Referring Provider Obstetrics & Gynecology; Visit Provider Obstetrics & Gynecology
DX: N80.9 Endometriosis, unspecified (principal)
CPT/HCPCS: 58340; 74740

== ENCOUNTER → 2020-08-31 10:47 | Outpatient (CLI) | payer OTHER, SELFPAY ==
[2020-05-04 13:17] VITALS: BMI 27.2
--- NOTE | 2020-08-31 10:52 | DIET.PN ---
Dietary Progress Note Assessment: 35y F attending [address] appointment for help with improved diet for her ileostomy. Pt had ileostomy 6mo ago secondary to complete colon blockage which turned out to be endometriosis. Pt attempted revision but there was too much endometrial tissue, however, reversal is scheduled for December in December. Is on Lupron to try to manage new endometrial tissue growth but has sx of low appetite. Pt is eating once per day between 4-6pm: bread, rice, crackers, chicken tofu or eggs, 4-6c fluids per day (veggie juice, broth, water) Pt has not been able to advance her diet and is avoiding most F/V, gets stabbing, cramping pain with intake of fiber foods. Pt has not had a complete blockage yet but often feels pressure building up at her ostomy outlet. Pt concerned that liquids move into her bag within 30-60min and foods like onions and sweet potatoes come out looking untransformed. Pt is waking in the middle of the night to change her bag. Pt is seeing therapist who has concerns regarding inadequate pre- and probiotics in the diet contributing to mental health. RD Impression: Pt understandably has significant anxiety around food and her GI function which has caused over limitation of her diet. Pt is not consuming adequate fluid and is eating one main meal per day increasing risk for thick output and pain. Pts main goal is to get as healthy as possible for her upcoming ileostomy revision and endometrial tissue removal. Nutrition Diagnosis: difficulty eating r/t altered GI function and fear of obstruction aeb pt has ileostomy x6mo, pt avoiding nearly all fiber containing foods, pt has many questions about normal ostomy function. Interventions: 1. Provided handout on anatomy of the GI tract with explanation of nutrient absorption at each segment. Explained importance of fluids and sodium as these are normally reabsorbed in large intestine. Also expressed it is normal to see some food residue in bag. 2. Educated pt on importance of small meals throughout the day to regulate ostomy output and reduce sx of too much food moving through. Suggested pt avoid onions and garlic unless an infused oil as these are often not well tolerated. 3. Educated pt on importance of protein c each meal to support immune fxn, tissue health, and lean body mass. In addition to current protein sources, recc pt trial small amounts of yogurt (probiotic), hummus and nut butter as well as egg bites/fritatta. 4. To support intake of bioactive compounds and the vitamins and minerals from F/V recc pt drink 4-8oz homemade green juice daily, provided 4 blended sauces, and recc using instapot for overcooking soups for easier tolerance. Pt received variety of handouts for recipes and recommendations. Pt happy c visit. EER: 4-6 small meals (1c volume) daily focus on protein at each occasion Monitoring/Evaluations: pt will call or email with any questions or to schedule f/u
== END ==
PROVIDERS: PCP Family Medicine; Referring Provider Family Medicine; Visit Provider Family Medicine
DX: R10.9 Unspecified abdominal pain (principal); Z93.2 Ileostomy status; Z71.3 Dietary counseling and surveillance
CPT/HCPCS: 97802

== ENCOUNTER → 2020-11-02 12:56 | Outpatient (CLI) | payer OTHER, SELFPAY ==
[2020-05-04 13:17] VITALS: BMI 27.2
[2020-11-02 14:27] LABS: Semen 30 min. Liquification? Yes
[2020-11-02 14:28] LABS: Final Volume 0.5 mL; Initial Volume 5.5 mL
== END ==
PROVIDERS: PCP Family Medicine; Referring Provider Obstetrics & Gynecology; Visit Provider Obstetrics & Gynecology
DX: N97.0 Female infertility associated with anovulation (principal)
CPT/HCPCS: 58323

== ENCOUNTER → 2020-12-01 08:02 | Outpatient (CLI) | payer OTHER, SELFPAY ==
[2020-05-04 13:17] VITALS: BMI 27.2
[2020-12-01 09:01] LABS: Final Volume 0.5 mL; Initial Volume 3.5 mL; Semen 30 min. Liquification? Yes
== END ==
PROVIDERS: PCP Family Medicine; Referring Provider Obstetrics & Gynecology; Visit Provider Obstetrics & Gynecology
DX: N97.0 Female infertility associated with anovulation (principal)
CPT/HCPCS: 58323

== ENCOUNTER → 2020-12-27 13:00 | Outpatient (CLI) | payer OTHER, SELFPAY ==
[2020-05-04 13:17] VITALS: BMI 27.2
[2020-12-27 13:34] LABS: Semen 30 min. Liquification? Yes
[2020-12-27 14:15] LABS: Final Volume 0.5 mL
== END ==
PROVIDERS: PCP Family Medicine; Referring Provider Obstetrics & Gynecology; Visit Provider Obstetrics & Gynecology
DX: N97.9 Female infertility, unspecified (principal)
CPT/HCPCS: 58323

== ENCOUNTER → 2021-02-10 12:54 | Outpatient (CLI) | payer OTHER, SELFPAY ==
[2020-05-04 13:17] VITALS: BMI 27.2
[2021-02-10 14:03] LABS: HCG Quantitative /Beta subunit < 2.4 mIU/mL
== END ==
PROVIDERS: PCP Family Medicine; Referring Provider Obstetrics & Gynecology; Visit Provider Obstetrics & Gynecology
DX: N91.2 Amenorrhea, unspecified (principal)
CPT/HCPCS: 36415; 84702

== ENCOUNTER → 2021-02-24 10:22 | Outpatient (CLI) | payer OTHER, SELFPAY ==
[2020-05-04 13:17] VITALS: BMI 27.2
[2021-02-24 11:43] LABS: Final Volume 0.5 mL; Semen 30 min. Liquification? Yes
== END ==
PROVIDERS: PCP Family Medicine; Referring Provider Obstetrics & Gynecology; Visit Provider Obstetrics & Gynecology
DX: N97.0 Female infertility associated with anovulation (principal)
CPT/HCPCS: 58323

== ENCOUNTER → 2021-03-04 10:49 | Outpatient (CLI) | payer OTHER, SELFPAY ==
[2020-05-04 13:17] VITALS: BMI 27.2
[2021-03-04 13:15] LABS: HCG Quantitative /Beta subunit 8.8 mIU/mL
== END ==
PROVIDERS: PCP Family Medicine; Referring Provider Obstetrics & Gynecology; Visit Provider Obstetrics & Gynecology
DX: N91.2 Amenorrhea, unspecified (principal)
CPT/HCPCS: 36415; 84702

== ENCOUNTER → 2021-03-07 09:56 | Outpatient (CLI) | payer OTHER, SELFPAY ==
[2020-05-04 13:17] VITALS: BMI 27.2
[2021-03-07 11:04] LABS: HCG Quantitative /Beta subunit < 2.4 mIU/mL
== END ==
PROVIDERS: PCP Family Medicine; Referring Provider Obstetrics & Gynecology; Visit Provider Obstetrics & Gynecology
DX: Z34.90 Encounter for supervision of normal pregnancy, unspecified, unspecified trimester (principal)
CPT/HCPCS: 36415; 84702

== ENCOUNTER → 2021-03-11 09:10 | Outpatient (CLI) | payer OTHER, SELFPAY ==
[2020-05-04 13:17] VITALS: BMI 27.2
[2021-03-11 10:43] LABS: HCG Quantitative /Beta subunit < 2.4 mIU/mL
== END ==
PROVIDERS: PCP Family Medicine; Referring Provider Obstetrics & Gynecology; Visit Provider Obstetrics & Gynecology
DX: N91.2 Amenorrhea, unspecified (principal)
CPT/HCPCS: 36415; 84702

== ENCOUNTER → 2021-03-16 13:34 | Outpatient (CLI) | payer OTHER, SELFPAY ==
[2020-05-04 13:17] VITALS: BMI 27.2
[2021-03-16 14:00] LABS: Appearance Urine UA CLEAR; Bilirubin Urine UA NEGATIVE (NEGATIVE); Color Urine UA YELLOW; Glucose Urine UA NEGATIVE (Negative); Ketones Urine UA TRACE (NEGATIVE); Leukocyte Esterase Urine UA NEGATIVE (NEGATIVE); Nitrite Urine UA NEGATIVE (Negative); Occult Blood Urine UA 3+ (Negative); Protein Urine UA NEGATIVE (Negative); Specific Gravity Urine UA >=1.030 (1.000-1.035); Urobilinogen Urine UA 0.2 E.U./dL (0.2)
[2021-03-16 14:08] LABS: Bacteria Urine None Seen; Culture Indicated Urine Cult Not Indicated; RBC Urine 10-30/HPF (0-5/HPF); Renal Epithelial Cells Urine 0-1/HPF (0-1/HPF); WBC Urine None Seen (0-5/HPF)
== END ==
PROVIDERS: PCP Family Medicine; Referring Provider Nurse Practitioner Family; Visit Provider Nurse Practitioner Family
DX: R39.198 Other difficulties with micturition (principal)
CPT/HCPCS: 81001

== ENCOUNTER → 2021-09-01 09:31 | Outpatient (CLI) | payer OTHER, SELFPAY ==
[2020-05-04 13:17] VITALS: BMI 27.2
--- NOTE | 2021-09-01 09:33 | DI.RAD.S_ITS ---
PROCEDURE: [place] BARIUM ENEMA INDICATIONS: ENDOMETRIOSIS OF INTESTINE COMPARISON: [facility], , [place] BARIUM ENEMA, 04/15/2020, 11:59. [facility], [place], [place] PELVIC COMPLETE, 02/17/2021, 16:32. FINDINGS: KUB: Preprocedural correctional therapy teacher film demonstrates a normal bowel gas pattern. Surgical sutures are noted in pelvis. There is a ostomy in the left lower quadrant. No suspicious abdominal calcifications. Visualized solid organ contours appear normal in size. No suspicious bony lesions. Colon: There is adequate opacification of the entire colon. There is focal marrow at the rectosigmoid junction. No colonic fistulae or perforations. Colon caliber appears normal. IMPRESSION: 1. Focal narrowing at the rectosigmoid junction suspicious for a stricture. No contrast leak at the anastomosis site. Dictated by: Betty Hooper M.D. on 09/01/2021 at 12:49 Approved by: Betty Hooper M.D. on 09/01/2021 at 12:56
== END ==
PROVIDERS: PCP Family Medicine; Referring Provider Surgery; Visit Provider Surgery
DX: N80.5 Endometriosis of intestine (principal); Z90.49 Acquired absence of other specified parts of digestive tract
CPT/HCPCS: 74270

== ENCOUNTER → 2021-09-05 08:03 | Outpatient (CLI) | payer OTHER, SELFPAY ==
[2020-05-04 13:17] VITALS: BMI 27.2
[2021-09-05 09:47] LABS: Glucose 99 mg/dL (70-100)
[2021-09-05 10:00] LABS: Free T3, Triiodothyronine Free 3.37 pg/mL (2.77-5.27); Free T4, Direct Thyroxine 1.14 ng/dL (0.78-2.19); Triiodothryronine T3 Uptake 34.4 % (23.5-40.5)
[2021-09-05 22:40] LABS: Thyroid Peroxidase Antibodies <8 IU/mL (0-34)
[2021-09-05 23:11] LABS: Triiodothyronine T3 Total 90 ng/dL (71-180)
[2021-09-16 13:05] LABS: Triiodothyronine T3 Reverse 13.1 ng/dL (9.2-24.1)
== END ==
PROVIDERS: PCP Family Medicine; Referring Provider Obstetrics & Gynecology; Visit Provider Obstetrics & Gynecology
DX: Z31.9 Encounter for procreative management, unspecified (principal); R73.09 Other abnormal glucose
CPT/HCPCS: 36415; 82947; 84144; 84439; 84479; 84480; 84481; 84482; 86376

== ENCOUNTER → 2021-09-16 10:06 | Outpatient (CLI) | payer OTHER, SELFPAY ==
[2020-05-04 13:17] VITALS: BMI 27.2
--- NOTE | 2021-09-16 10:08 | DI.RAD.S_ITS ---
PROCEDURE: HL HYSTEROSAPINGOGRAPHY INDICATIONS: Endometriosis/Infertility COMPARISON: None. FINDINGS: Patient had a documented negative test prior to the study. Following speculum insertion, a balloon-tip catheter was inserted into the cervical canal, and secured by inflating the balloon. Contrast was then injected into the endometrial canal. Uterus: The uterine cavity appears normal in size and morphology, without synechiae or masses. Fallopian tubes: Both fallopian tubes fill with contrast, and appear normal in caliber and morphology. There is ready dispersion of contrast into the peritoneal cavity. IMPRESSION: Bilateral fallopian tubes fully patent. Dictated by: Esther Reyes MD, PhD on 09/16/2021 at 12:25 Approved by: Esther Reyes MD, PhD on 09/16/2021 at 12:25
--- NOTE | 2021-09-19 08:45 | P.PCN_ITS ---
Procedures Date/Time Date of procedure: 09/16/21 Time of procedure: 10:30 General Procedure description: Hysterosalpingogram Procedure: After informed consent was obtained. The patient was placed in the dorsal supine position with a pelvic tilt using an overturned bedpan. A sterile speculum was placed into the vagina. The cervix was cleaned x3 with Betadine. A single-tooth tenaculum was placed on the anterior lip of the cervix. The flexible HSG catheter could not pass through the cervix. The more rigid ?acorn? catheter was used. The bivalve speculum was removed from the vagina. 20 cc of Isovue-300 were injected under direct fluoroscopic examination. The contours of the uterus were normal. The contours of the tubes were normal. There was immediate spill from both tubes. The acorn catheter was removed from the cervix . The single-tooth tenaculum was removed from the anterior lip of the cervix. The patient was taken out of pelvic tilt. Sponge count was correct. The patient tolerated the procedure well. Complications: none
== END ==
PROVIDERS: PCP Family Medicine; Referring Provider Obstetrics & Gynecology; Visit Provider Obstetrics & Gynecology
DX: Z31.9 Encounter for procreative management, unspecified (principal); N80.9 Endometriosis, unspecified; Z98.890 Other specified postprocedural states
CPT/HCPCS: 58340; 74740

== ENCOUNTER → 2021-09-19 14:19 | Outpatient (CLI) | payer OTHER, SELFPAY ==
[2020-05-04 13:17] VITALS: BMI 27.2
[2021-09-19 15:31] LABS: COVID19 -Nasal RAPID Negative (Negative)
== END ==
PROVIDERS: PCP Family Medicine; Referring Provider Surgery; Visit Provider Surgery
DX: Z01.812 Encounter for preprocedural laboratory examination (principal); Z20.822 Contact with and (suspected) exposure to COVID-19; K91.30 Postprocedural intestinal obstruction, unspecified as to partial versus complete
CPT/HCPCS: 87635; 99213

== ENCOUNTER 2021-09-20 10:27 | Day surgery (SDC) | payer OTHER, SELFPAY ==
[2020-05-04 13:17] VITALS: BMI 27.2
[2021-09-20 10:55] VITALS: BP 112/72; PULSE 81; RESP 16; TEMP 37.1; O2SAT 100; BMI 25.9
[2021-09-20] MEDS: LACTATED RINGERS 1,000 ML 200 ML IV (11:04)
[2021-09-20] MEDS: fentaNYL 250 MCG/5 ML INJ IV (11:27)
[2021-09-20] MEDS: MIDAZOLAM 5 MG/5 ML VIAL IV (11:27)
--- NOTE | 2021-09-20 11:27 | PM.PREOP ---
Pre-operative Note Interval Note History & Physical reviewed/Exam performed by Physician: Yes Changes to H&P: No
[2021-09-20 12:00] VITALS: BP 101/61; PULSE 73; RESP 16; TEMP 36.4; O2SAT 98
--- NOTE | 2021-09-20 12:02 | PM.OP.COLON ---
Operative Date/Time/Diagnoses Date of procedure: 09/20/21 Time of procedure: 12:02 Pre-op diagnosis: Anastomotic stricture status post LAR Post-op diagnosis: same Procedure & Clinicians Study performed: Sigmoidoscopy in dilation of anastomotic stricture Same procedure as scheduled: Yes Indications: Anastomotic stricture after a low anterior resection for extensive endometrial disease Surgeon: Wesley Gonzalez Procedure Notes Procedure in detail: Medications: Conscious sedation using 9 mg IV midazolam and 250mcg IV of fentanyl The history and physical was performed/updated and the patient is ASA class is 2. The procedure was discussed in detail with the patient. Potential risks complications including infection, bleeding, missed diagnosis, perforation, need for surgery, and were explained. Their questions were answered and informed consent was obtained. Patient was brought to the procedure room and placed standard monitoring equipment. The patient's vital signs were monitored continuously throughout the entire procedure. Prior to starting time-out was performed. The patient was placed in the left lateral recumbent position. Procedural sedation was administered. Examination began with a thorough inspection of the perianal area there was no evidence of fissures, fistulae, external hemorrhoids or cutaneous malignancy. The colonoscopy scope was then placed into the anal canal and was advanced. There was a rectal anastomotic stricture which did not accommodate the diameter of the pediatric scope. After sequentially dilating with the pneumatic dilator we successfully dilated to 20 mm. The pediatric scope then passed easily through the anastomosis. Sedation time was 20 minutes Specimen(s): none sent Complications: none Impression: Successful dilation of anastomotic stricture Post-procedure Disposition: same day surgery
[2021-09-20 12:05] VITALS: BP 91/68; PULSE 75; RESP 16; O2SAT 100
[2021-09-20 12:10] VITALS: BP 93/63; PULSE 77; RESP 16; O2SAT 100
[2021-09-20 12:15] VITALS: BP 109/65; PULSE 79; RESP 16; O2SAT 99
[2021-09-20 12:24] VITALS: BP 98/62; PULSE 81; RESP 16; O2SAT 100
== END 2021-09-20 12:33 | disposition home or self-care (01) ==
PROVIDERS: PCP Family Medicine; Referring Provider Surgery; Visit Provider Surgery
PROC: 0DJD8ZZ Inspection of Lower Intestinal Tract, Via Natural or Artificial Opening Endoscopic (ICD-10-PCS; CPT 45378; principal; 2021-09-20 11:30)
DX: K56.699 Other intestinal obstruction unspecified as to partial versus complete obstruction (principal)
CPT/HCPCS: 45340; 99152; J2250; J3010

== ENCOUNTER → 2021-10-20 10:02 | Outpatient (CLI) | payer OTHER, SELFPAY ==
[2021-10-11 10:32] VITALS: BMI 27.2
[2021-10-20 13:10] LABS: Urine N gonorrhoeae NOT DETECTED
[2021-10-20 13:16] LABS: Urine Chlamydia NOT DETECTED
[2021-10-20 16:04] LABS: Hepatitis B Surface Antigen NEGATIVE s/c (NEGATIVE)
[2021-10-20 16:24] LABS: HIV 1 & 2 Ab/Ag 4th Gen Combo NEGATIVE (NEGATIVE); Hep C Virus Ab w/Reflex Quant NEGATIVE s/c (NEGATIVE)
[2021-10-21 07:01] LABS: RPR Screen Non Reactive (Non Reactive)
[2021-10-21 07:36] LABS: HSV 2 IGG AB < 0.91 index (0.00-0.90)
[2021-10-21 18:32] LABS: Anti Thyroglobulin Antibody <1.0 IU/mL (0.0-0.9)
[2021-10-21 18:35] LABS: HSV I/II IgM 2.09 Ratio (0.00-0.90)
== END ==
PROVIDERS: Obstetrics & Gynecology; PCP Family Medicine; Referring Provider Family Medicine; Visit Provider Family Medicine
DX: Z20.2 Contact with and (suspected) exposure to infections with a predominantly sexual mode of transmission (principal)
CPT/HCPCS: 36415; 86592; 86694; 86695; 86696; 86800; 86803; 87340; 87389; 87491; 87591

== ENCOUNTER → 2021-12-15 09:37 | Outpatient (CLI) | payer OTHER, SELFPAY ==
[2021-10-11 10:32] VITALS: BMI 27.2
[2021-12-15 12:27] LABS: Free T3, Triiodothyronine Free 3.44 pg/mL (2.77-5.27); Free T4, Direct Thyroxine 1.07 ng/dL (0.78-2.19)
[2021-12-15 12:41] LABS: Thyroid Stimulating Hormone 1.41 uIU/mL (0.47-4.68)
== END ==
PROVIDERS: PCP Family Medicine; Referring Provider Family Medicine; Visit Provider Family Medicine
DX: E03.9 Hypothyroidism, unspecified (principal)
CPT/HCPCS: 36415; 84439; 84443; 84481

== ENCOUNTER → 2022-03-08 08:01 | Outpatient (CLI) | payer OTHER, SELFPAY ==
[2021-10-11 10:32] VITALS: BMI 27.2
[2022-03-08 10:28] LABS: Free T3, Triiodothyronine Free 4.35 pg/mL (2.77-5.27)
[2022-03-08 10:41] LABS: Thyroid Stimulating Hormone 2.35 uIU/mL (0.47-4.68)
[2022-03-08 17:57] LABS: Free T4, Direct Thyroxine 1.32 ng/dL (0.78-2.19)
== END ==
PROVIDERS: PCP Family Medicine; Referring Provider Family Medicine; Visit Provider Family Medicine
DX: E03.9 Hypothyroidism, unspecified (principal)
CPT/HCPCS: 36415; 84439; 84443; 84481

== ENCOUNTER → 2022-03-16 08:42 | Outpatient (CLI) | payer OTHER, SELFPAY ==
[2021-10-11 10:32] VITALS: BMI 27.2
[2022-03-16 10:31] LABS: Add Manual Diff / Slide Review NO; Basophils Absolute Auto 0 /uL (0-100); Basophils Percent Auto 0.6 % (0-2); Eosinophils Absolute Auto 200 /uL (0-450); Eosinophils Percent Auto 2.9 % (2-4); Hematocrit 39.6 % (36-46); Hemoglobin 13.4 g/dL (12.0-16.0); Lymphocytes Absolute Auto 2000 /uL (1100-4500); Lymphocytes Percent Auto 24.1 % (25-40); Mean Corpuscular HGB Conc 33.7 % (30-36); Mean Corpuscular Hemoglobin 27.8 PG (26-34); Mean Corpuscular Volume 82.5 fL (80-100); Monocytes Absolute Auto 600 /uL (0-900); Monocytes Percent Auto 7.2 % (3-14); Neutrophils Absolute Auto 5400 /uL (1500-7000); Neutrophils Percent Auto 65.2 % (50-75); Platelet Count 251 X10^3/uL (150-400); White Blood Cell Count 8.3 X10^3/uL (4.5-11.0)
[2022-03-16 11:08] LABS: Alanine Aminotransferase 14 IU/L (<35); Albumin 4.2 g/dL (3.5-5.0); Albumin Globulin Ratio 1.4 (1.0-2.8); Alkaline Phosphatase 57 U/L (38-126); Aspartate Aminotransferase 22 IU/L (14-36); BUN Creatinine Ratio 17.2 (6-22); Bilirubin Total 0.7 mg/dL (0.2-1.3); Blood Urea Nitrogen 11 mg/dL (7-17); Calcium 9.1 mg/dL (8.4-10.2); Carbon Dioxide 23 mmol/L (22-32); Chloride 103 mmol/L (98-107); Estimated Glomerular Filt Rate > 60 mL/min (>60); Globulin 3.1 g/dL (1.7-4.1); Glucose 87 mg/dL (70-100); HEMOLYSIS < 15 (0-50); Potassium 4.5 mmol/L (3.4-5.1); Sodium 136 mmol/L (137-145); Total Protein 7.3 g/dL (6.3-8.2)
[2022-03-16 11:12] LABS: Vitamin D 25 Hydroxy (D3) 50.3 ng/mL (30.0-100.0)
[2022-03-16 11:49] LABS: Vitamin B12 726 pg/mL (239-931)
== END ==
PROVIDERS: PCP Family Medicine; Referring Provider Family Medicine; Visit Provider Family Medicine
DX: D64.9 Anemia, unspecified (principal); E55.9 Vitamin D deficiency, unspecified; R53.83 Other fatigue
CPT/HCPCS: 36415; 80053; 82306; 82607; 85025

== ENCOUNTER → 2022-04-10 09:12 | Outpatient (CLI) | payer OTHER, SELFPAY ==
[2021-10-11 10:32] VITALS: BMI 27.2
[2022-04-10 11:32] LABS: Cholesterol 162 mg/dL (140-199); HDL Cholesterol 56 mg/dL (40-60); LDL Cholesterol Calculated 95 mg/dL (<100); Triglycerides 57 mg/dL (35-150); VLDL Cholesterol Calculated 11 mg/dL (2-30)
== END ==
PROVIDERS: PCP Family Medicine; Referring Provider Family Medicine; Visit Provider Family Medicine
DX: D64.9 Anemia, unspecified (principal); E03.9 Hypothyroidism, unspecified; N80.9 Endometriosis, unspecified; R53.83 Other fatigue
CPT/HCPCS: 36415; 80061

== ENCOUNTER → 2022-07-14 10:30 | Outpatient (CLI) | payer OTHER, SELFPAY ==
[2021-10-11 10:32] VITALS: BMI 27.2
[2022-07-14 12:05] LABS: HCG Quantitative /Beta subunit 3.1 mIU/mL
== END ==
PROVIDERS: PCP Family Medicine; Referring Provider Obstetrics & Gynecology; Visit Provider Obstetrics & Gynecology
DX: Z34.91 Encounter for supervision of normal pregnancy, unspecified, first trimester (principal)
CPT/HCPCS: 36415; 84702

== ENCOUNTER → 2022-07-17 10:49 | Outpatient (CLI) | payer OTHER, SELFPAY ==
[2021-10-11 10:32] VITALS: BMI 27.2
[2022-07-17 13:29] LABS: HCG Quantitative /Beta subunit < 2.4 mIU/mL
== END ==
PROVIDERS: PCP Family Medicine; Referring Provider Obstetrics & Gynecology; Visit Provider Obstetrics & Gynecology
DX: Z34.90 Encounter for supervision of normal pregnancy, unspecified, unspecified trimester (principal)
CPT/HCPCS: 36415; 84702

== ENCOUNTER → 2022-07-24 09:20 | Outpatient (CLI) | payer OTHER, SELFPAY ==
[2021-10-11 10:32] VITALS: BMI 27.2
[2022-07-31 13:19] LABS: Estradiol 143
[2022-07-31 13:32] LABS: Estriol,Serum <0.1 ng/mL (.); Estrone,Serum 45 pg/mL (27-231)
== END ==
PROVIDERS: PCP Family Medicine; Referring Provider Obstetrics & Gynecology; Visit Provider Obstetrics & Gynecology
DX: N80.9 Endometriosis, unspecified (principal)
CPT/HCPCS: 36415; 82670; 82677; 82679

== ENCOUNTER → 2022-08-10 09:43 | Outpatient (CLI) | payer OTHER, SELFPAY ==
[2021-10-11 10:32] VITALS: BMI 27.2
[2022-08-15 12:35] LABS: Estradiol 52.5 pg/mL (.); Estriol,Serum <0.1 ng/mL (.); Estrone,Serum 42 pg/mL (27-231)
== END ==
PROVIDERS: PCP Family Medicine; Referring Provider Obstetrics & Gynecology; Visit Provider Obstetrics & Gynecology
DX: N80.9 Endometriosis, unspecified (principal)
CPT/HCPCS: 36415; 82670; 82677; 82679

== ENCOUNTER → 2022-08-22 09:10 | Outpatient (CLI) | payer OTHER, SELFPAY ==
[2021-10-11 10:32] VITALS: BMI 27.2
[2022-08-25 18:05] LABS: Estriol,Serum <0.1 ng/mL (.); Estrone,Serum 62 pg/mL (27-231)
== END ==
PROVIDERS: PCP Family Medicine; Referring Provider Obstetrics & Gynecology; Visit Provider Obstetrics & Gynecology
DX: N80.9 Endometriosis, unspecified (principal)
CPT/HCPCS: 36415; 82670; 82677; 82679

== ENCOUNTER → 2022-08-26 08:15 | Outpatient (CLI) | payer OTHER, SELFPAY ==
[2021-10-11 10:32] VITALS: BMI 27.2
[2022-08-29 17:03] LABS: Estriol,Serum <0.1 ng/mL (.); Estrone,Serum 82 pg/mL (27-231)
== END ==
PROVIDERS: PCP Family Medicine; Referring Provider Obstetrics & Gynecology; Visit Provider Obstetrics & Gynecology
DX: N80.9 Endometriosis, unspecified (principal)
CPT/HCPCS: 36415; 82670; 82677; 82679

== ENCOUNTER → 2023-01-11 08:01 | Outpatient (CLI) | payer OTHER, SELFPAY ==
[2021-10-11 10:32] VITALS: BMI 27.2
[2023-01-11 08:46] LABS: Add Manual Diff / Slide Review NO; Basophils Absolute Auto 100 /uL (0-100); Basophils Percent Auto 0.5 % (0-2); Eosinophils Absolute Auto 400 /uL (0-450); Eosinophils Percent Auto 4.2 % (2-4); Hematocrit 37.2 % (36-46); Hemoglobin 13.2 g/dL (12.0-16.0); Lymphocytes Absolute Auto 1900 /uL (1100-4500); Lymphocytes Percent Auto 18.3 % (25-40); Mean Corpuscular HGB Conc 35.5 % (30-36); Mean Corpuscular Hemoglobin 29.1 PG (26-34); Mean Corpuscular Volume 82.2 fL (80-100); Monocytes Absolute Auto 500 /uL (0-900); Monocytes Percent Auto 5.2 % (3-14); Neutrophils Absolute Auto 7300 /uL (1500-7000); Neutrophils Percent Auto 71.8 % (50-75); Platelet Count 236 X10^3/uL (150-400); Red Blood Cell Count 4.53 X10^6/uL (4.0-5.2); Red Cell Distribution Width 13.2 % (11.6-14.8); White Blood Cell Count 10.2 X10^3/uL (4.5-11.0)
[2023-01-11 09:14] LABS: Free T4, Direct Thyroxine 1.22 ng/dL (0.78-2.19)
[2023-01-11 09:28] LABS: Thyroid Stimulating Hormone 0.709 uIU/mL (0.47-4.68)
[2023-01-11 17:50] LABS: Hepatitis B Surface Antigen NEGATIVE s/c (NEGATIVE); Rubella Antibody IgG 12.7 IU/mL (>15)
[2023-01-11 18:02] LABS: HIV 1 & 2 Ab/Ag 4th Gen Combo NEGATIVE (NEGATIVE); Hep C Virus Ab w/Reflex Quant NEGATIVE s/c (NEGATIVE)
[2023-01-12 03:11] LABS: RPR Screen Non Reactive (Non Reactive)
[2023-01-12 11:45] LABS: Varicella IgG Antibody 1030 index (Immune >165)
[2023-01-16 03:12] LABS: x Labcorp Estim. Avg Glu (eAG) 94 mg/dL (.); x Labcorp Hemoglobin A1c 4.9 % (4.8-5.6)
== END ==
PROVIDERS: PCP Family Medicine; Referring Provider Obstetrics & Gynecology; Visit Provider Obstetrics & Gynecology
DX: O09.811 Supervision of pregnancy resulting from assisted reproductive technology, first trimester (principal); O30.009 Twin pregnancy, unspecified number of placenta and unspecified number of amniotic sacs, unspecified trimester
CPT/HCPCS: 80055; 83036; 84439; 84443; 86787; 86803; 86850; 86900; 86901; 87086; 87389

== ENCOUNTER → 2023-01-22 13:55 | Outpatient (CLI) | payer OTHER, SELFPAY ==
[2021-10-11 10:32] VITALS: BMI 27.2
[2023-01-22 14:26] LABS: Specimen Label NATERA
[2023-01-23 08:44] LABS: Miscellaneous to LabCorp NATERA KIT
== END ==
PROVIDERS: PCP Family Medicine; Referring Provider Obstetrics & Gynecology; Visit Provider Obstetrics & Gynecology
DX: O09.521 Supervision of elderly multigravida, first trimester (principal); O09.511 Supervision of elderly primigravida, first trimester
CPT/HCPCS: 36415

== ENCOUNTER 2023-01-31 12:53 | Outpatient (CLI) | payer OTHER, SELFPAY ==
[2021-10-11 10:32] VITALS: BMI 27.2
== END 2023-01-31 13:15 | disposition home or self-care (01) ==
LOC: LABOR 13:06 → OB 02-01 12:20
PROVIDERS: PCP Family Medicine; Referring Provider Obstetrics & Gynecology; Visit Provider Obstetrics & Gynecology
DX: O26.891 Other specified pregnancy related conditions, first trimester (principal); N89.8 Other specified noninflammatory disorders of vagina; Z3A.12 12 weeks gestation of pregnancy
CPT/HCPCS: 84112; G0378; G0379

== ENCOUNTER → 2023-02-06 08:34 | Outpatient (CLI) | payer OTHER, SELFPAY ==
[2021-10-11 10:32] VITALS: BMI 27.2
[2023-02-07 14:09] LABS: Candida species Negative (Negative); Gardnerella vaginalis Negative (Negative); Trichomoas vaginalis Negative (Negative)
== END ==
PROVIDERS: PCP Family Medicine; Visit Provider Obstetrics & Gynecology
DX: N89.8 Other specified noninflammatory disorders of vagina (principal)
CPT/HCPCS: 87480; 87510; 87660

== ENCOUNTER → 2023-03-05 15:19 | Outpatient (CLI) | payer OTHER, SELFPAY ==
[2021-10-11 10:32] VITALS: BMI 27.2
[2023-03-07 23:24] LABS: AFP Value 95.2 ng/mL (.); Gest Age on Col Date 17.1 weeks (.); Insulin Dep Diabetes No (.); OSBR Risk 1IN 457 (.); Results Report (.); Test Results *Screen Negative* (.)
[2023-03-08 07:22] LABS: PDF SCANNED
== END ==
PROVIDERS: PCP Family Medicine; Referring Provider Specialist; Visit Provider Specialist
DX: O30.009 Twin pregnancy, unspecified number of placenta and unspecified number of amniotic sacs, unspecified trimester (principal); Z34.02 Encounter for supervision of normal first pregnancy, second trimester; Z3A.17 17 weeks gestation of pregnancy
CPT/HCPCS: 36415; 82105

== ENCOUNTER → 2023-04-27 07:47 | Outpatient (CLI) | payer OTHER, SELFPAY ==
[2021-10-11 10:32] VITALS: BMI 27.2
[2023-04-27 09:29] LABS: Hemoglobin 11.6 g/dL (12.0-16.0)
[2023-04-27 10:56] LABS: Free T4, Direct Thyroxine 0.85 ng/dL (0.78-2.19); HEMOLYSIS < 15 (0-50)
[2023-04-27 11:10] LABS: Thyroid Stimulating Hormone 1.35 uIU/mL (0.47-4.68)
[2023-04-27 11:19] LABS: Iron 90 ug/dL (37-170)
[2023-04-27 11:20] LABS: Ferritin 9 ng/mL (6-137)
[2023-04-27 11:30] LABS: Percent Iron Saturation 21 % (15-50); Total Iron Binding Capacity 420 ug/dL (265-497); Transferrin 360 mg/dL (206-381)
== END ==
PROVIDERS: PCP Family Medicine; Referring Provider Obstetrics & Gynecology; Visit Provider Obstetrics & Gynecology
DX: Z34.02 Encounter for supervision of normal first pregnancy, second trimester (principal); Z3A.24 24 weeks gestation of pregnancy; O30.049 Twin pregnancy, dichorionic/diamniotic, unspecified trimester; O99.282 Endocrine, nutritional and metabolic diseases complicating pregnancy, second trimester; E03.9 Hypothyroidism, unspecified; O09.512 Supervision of elderly primigravida, second trimester; R53.82 Chronic fatigue, unspecified; K91.30 Postprocedural intestinal obstruction, unspecified as to partial versus complete; N80.9 Endometriosis, unspecified; O09.519 Supervision of elderly primigravida, unspecified trimester
CPT/HCPCS: 36415; 82728; 83540; 83550; 84439; 84443; 85014; 85018

== ENCOUNTER 2023-06-14 12:43 | Outpatient (CLI) | payer OTHER, SELFPAY ==
[2021-10-11 10:32] VITALS: BMI 27.2
--- NOTE | 2023-06-14 20:28 | PM.OBTRLD ---
Visit Information Visit Information Date of evaluation: 06/14/23 Primary OB Provider: Keira Tierney On-call OB Provider: Kevin Payne Reason for Evaluation: Yes non-stress test non-stress test reason: other (di/di twins) Comments/Additional reasons for admission: 37yo G1 at GA 32+0 weeks here for routine NST. 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 Endorses normal movement. Denies vaginal bleeding, leakage of fluid, abdominal pain, contractions. [facility] Medical History (Updated 05/30/23 @ 11:33 by Keira Tierney MD) Adenomyosis Infraorbital crease Anemia Herpes Borderline hypothyroidism Infertility management Infertility Ileostomy in place Large bowel obstruction Chicken pox (~1995) Vitamin D deficiency Surgical History (Updated 01/03/23 @ 09:47 by Jania Casas RN) History of bowel resection Hx of ileostomy (03/03/20) S/P laparotomy Family History (Updated 01/03/23 @ 09:48 by Jania Casas RN) Father Hypertension Grandfather Diabetes mellitus Grandfather Stroke Social History marital status: number of children: 0 household members: spouse lives independently: Yes housing: house pets and animals: Yes (3 dogs) education level: college (bachelor's degree) 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) current occupational exposures/hazards: No special david needs: No travel history: recent (local/domestic only) seatbelt use: always helmet use: Yes water heater temp set < 120 deg: Yes working smoke detector in home: Yes fire extinguisher in home: Yes carbon monox detector in home: Yes firearms in home: Yes firearms unloaded and locked: Yes do you feel safe at home: Yes Smoking Status: Never smoker second hand exposure: No alcohol intake: never substance use type: does not use during the past year weight has: increased > 10 lbs (~40 lb due to hormones w/ fertility Tx) well-balanced diet: daily or most days daily servings fruits/ve or more times/day caffeine: No Type(s) of exercise: bicycling (stationary bike), resistance training and other (hiking) frequency: 3-4 times per week Review of Systems Review of Systems ROS: Yes All systems reviewed with the patient and are negative except as otherwise documented Evaluation Evaluation Comments: Twin A FHT: 150bpm/moderate/+ accels, no decels, reactive w/Cat 1 strip Twin B FHT: 145bpm/moderate/+ accels, no decels, reactive w/Cat 1 strip [place]: No ctx Diagnosis, Plan/Disposition Final Diagnosis (1) Dichorionic diamniotic twin gestation: Status: Acute (2) resulting from assisted reproductive technology (ART): Status: Acute (3) AMA (advanced maternal age) primigravida 35+: Status: Acute Plan/Disposition Plan: NST reactive x2 F/u at scheduled OV w/primary OB on 06/18/23 OB Disposition: home
== END 2023-06-14 13:30 | disposition home or self-care (01) ==
LOC: LABOR 12:57 → OB 06-18 14:10
PROVIDERS: PCP Family Medicine; Referring Provider Obstetrics & Gynecology; Visit Provider Obstetrics & Gynecology
DX: O30.043 Twin pregnancy, dichorionic/diamniotic, third trimester (principal); O09.513 Supervision of elderly primigravida, third trimester; O09.813 Supervision of pregnancy resulting from assisted reproductive technology, third trimester; Z3A.32 32 weeks gestation of pregnancy
CPT/HCPCS: 59025; G0378; G0379

== ENCOUNTER 2023-06-18 14:04 | Outpatient (CLI) | payer OTHER, SELFPAY ==
[2021-10-11 10:32] VITALS: BMI 27.2
--- NOTE | 2023-06-18 14:38 | PM.OBTRLD ---
Visit Information Visit Information Date of evaluation: 06/18/23 Primary OB Provider: Keira Tierney On-call OB Provider: Елена Sanders Reason for Evaluation: Yes non-stress test non-stress test reason: other Comments/Additional reasons for admission: Dichorionic diamniotic twin gestation at 32 weeks Vital Signs Vital Signs: Blood pressure 109/63, pulse 75, temperature 37.1? [facility] Medical History (Updated 06/18/23 @ 14:40 by Елена Sanders MD) Adenomyosis Infraorbital crease Anemia Herpes Borderline hypothyroidism Infertility management Infertility Ileostomy in place Large bowel obstruction Chicken pox (~1995) Vitamin D deficiency Surgical History (Updated 01/03/23 @ 09:47 by Jania Casas, RN) History of bowel resection Hx of ileostomy (03/03/20) S/P laparotomy Family History (Updated 01/03/23 @ 09:48 by Jania Casas, RN) Father Hypertension Grandfather Diabetes mellitus Grandfather Stroke Social History marital status: number of children: 0 household members: spouse lives independently: Yes housing: house pets and animals: Yes (3 dogs) education level: college (bachelor's degree) 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) current occupational exposures/hazards: No special david needs: No travel history: recent (local/domestic only) seatbelt use: always helmet use: Yes water heater temp set < 120 deg: Yes working smoke detector in home: Yes fire extinguisher in home: Yes carbon monox detector in home: Yes firearms in home: Yes firearms unloaded and locked: Yes do you feel safe at home: Yes Smoking Status: Never smoker second hand exposure: No alcohol intake: never substance use type: does not use during the past year weight has: increased > 10 lbs (~40 lb due to hormones w/ fertility Tx) well-balanced diet: daily or most days daily servings fruits/ve or more times/day caffeine: No Type(s) of exercise: bicycling (stationary bike), resistance training and other (hiking) frequency: 3-4 times per week Evaluation Evaluation Baseline heart rate: 140 (Both) Variability: Moderate (11-25) (Both) monitor accelerations: Present (Both) Monitor Decelerations: Absent (Both) Contraction Frequency (minutes): 0 Category of Tracing: Reactive Status: Category l Diagnosis, Plan/Disposition Final Diagnosis (1) Dichorionic diamniotic twin gestation: Status: Acute (2) AMA (advanced maternal age) primigravida 35+: Status: Acute (3) 32 weeks gestation of : Status: Acute Plan/Disposition Plan: Reassuring nonstress tests and dichorionic diamniotic twin gestation. Patient to office for routine OB visit OB Disposition: home
== END 2023-06-18 14:40 | disposition home or self-care (01) ==
LOC: LABOR 14:30 → OB 06-19 16:22
PROVIDERS: PCP Family Medicine; Referring Provider Obstetrics & Gynecology; Visit Provider Obstetrics & Gynecology
DX: O30.043 Twin pregnancy, dichorionic/diamniotic, third trimester (principal); O09.513 Supervision of elderly primigravida, third trimester; Z3A.32 32 weeks gestation of pregnancy
CPT/HCPCS: 59025; G0378; G0379

== ENCOUNTER → 2023-06-22 08:16 | Outpatient (CLI) | payer OTHER, SELFPAY ==
[2021-10-11 10:32] VITALS: BMI 27.2
[2023-06-22 08:40] LABS: Hematocrit 36.8 % (36-46); Hemoglobin 12.5 g/dL (12.0-16.0)
== END ==
PROVIDERS: PCP Family Medicine; Referring Provider Specialist; Visit Provider Specialist
DX: D50.9 Iron deficiency anemia, unspecified (principal); Z3A.32 32 weeks gestation of pregnancy
CPT/HCPCS: 36415; 85014; 85018

== ENCOUNTER 2023-06-25 09:15 | Outpatient (CLI) | payer OTHER, SELFPAY ==
[2021-10-11 10:32] VITALS: BMI 27.2
--- NOTE | 2023-06-25 09:47 | PM.OBTRLD ---
Visit Information Visit Information Date of evaluation: 06/25/23 Primary OB Provider: Keira Tierney On-call OB Provider: Carmen Yen Comments/Additional reasons for admission: Pt is a 37yo at 33w4d here for NST for di-di twin gestation. Pt denies contractions, LOF, vaginal bleeding. [facility] Medical History (Updated 06/25/23 @ 09:50 by Carmen Yen MD) Adenomyosis Infraorbital crease Anemia Herpes Borderline hypothyroidism Infertility management Infertility Ileostomy in place Large bowel obstruction Chicken pox (~1995) Vitamin D deficiency Surgical History (Updated 01/03/23 @ 09:47 by Jania Casas, RN) History of bowel resection Hx of ileostomy (03/03/20) S/P laparotomy Family History (Updated 01/03/23 @ 09:48 by Jania Casas, RN) Father Hypertension Grandfather Diabetes mellitus Grandfather Stroke Social History marital status: number of children: 0 household members: spouse lives independently: Yes housing: house pets and animals: Yes (3 dogs) education level: college (bachelor's degree) 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) current occupational exposures/hazards: No special david needs: No travel history: recent (local/domestic only) seatbelt use: always helmet use: Yes water heater temp set < 120 deg: Yes working smoke detector in home: Yes fire extinguisher in home: Yes carbon monox detector in home: Yes firearms in home: Yes firearms unloaded and locked: Yes do you feel safe at home: Yes Smoking Status: Never smoker second hand exposure: No alcohol intake: never substance use type: does not use during the past year weight has: increased > 10 lbs (~40 lb due to hormones w/ fertility Tx) well-balanced diet: daily or most days daily servings fruits/ve or more times/day caffeine: No Type(s) of exercise: bicycling (stationary bike), resistance training and other (hiking) frequency: 3-4 times per week Evaluation Evaluation Comments: Twin A: Baseline 145, moderate variability, accels present, no decels Twin B: Baseline 135, moderate variability, accels present, no decels [place]: no contractions Diagnosis, Plan/Disposition Final Diagnosis (1) AMA (advanced maternal age) primigravida 35+: Status: Acute (2) Dichorionic diamniotic twin gestation: Status: Acute Plan/Disposition Plan: Pt is a 37yo at 33w4d here for NST for di-di twin gestation. NST reactive. Continue testing. OB Disposition: home
== END 2023-06-25 09:52 | disposition home or self-care (01) ==
LOC: OB 06-26 11:25
PROVIDERS: PCP Family Medicine; Referring Provider Obstetrics & Gynecology; Visit Provider Obstetrics & Gynecology
DX: O30.043 Twin pregnancy, dichorionic/diamniotic, third trimester (principal); O09.513 Supervision of elderly primigravida, third trimester; Z3A.33 33 weeks gestation of pregnancy
CPT/HCPCS: 59025; G0378; G0379

== ENCOUNTER 2023-06-28 09:17 | Outpatient (CLI) | payer OTHER, SELFPAY ==
[2021-10-11 10:32] VITALS: BMI 27.2
--- NOTE | 2023-06-28 09:55 | P.TNLD_ITS ---
Visit Information Visit Information Date of evaluation: 06/28/23 On-call OB Provider: Елена Sanders Reason for Evaluation: Yes non-stress test non-stress test reason: other (Dichorionic diamniotic twin gestation) Vital Signs Vital Signs: Blood pressure 115/71, pulse 79, temperature 36.7? [facility] Medical History (Updated 06/28/23 @ 09:57 by Елена Sanders MD) Adenomyosis Infraorbital crease Anemia Herpes Borderline hypothyroidism Infertility management Infertility Ileostomy in place Large bowel obstruction Chicken pox (~1995) Vitamin D deficiency Surgical History (Updated 01/03/23 @ 09:47 by Jania Casas, RN) History of bowel resection Hx of ileostomy (03/03/20) S/P laparotomy Family History (Updated 01/03/23 @ 09:48 by Jania Casas, RN) Father Hypertension Grandfather Diabetes mellitus Grandfather Stroke Social History marital status: number of children: 0 household members: spouse lives independently: Yes housing: house pets and animals: Yes (3 dogs) education level: college (bachelor's degree) 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) current occupational exposures/hazards: No special david needs: No travel history: recent (local/domestic only) seatbelt use: always helmet use: Yes water heater temp set < 120 deg: Yes working smoke detector in home: Yes fire extinguisher in home: Yes carbon monox detector in home: Yes firearms in home: Yes firearms unloaded and locked: Yes do you feel safe at home: Yes Smoking Status: Never smoker second hand exposure: No alcohol intake: never substance use type: does not use during the past year weight has: increased > 10 lbs (~40 lb due to hormones w/ fertility Tx) well-balanced diet: daily or most days daily servings fruits/ve or more times/day caffeine: No Type(s) of exercise: bicycling (stationary bike), resistance training and other (hiking) frequency: 3-4 times per week Evaluation Evaluation Baseline heart rate: 150 (Both) Variability: Moderate (11-25) (Both) monitor accelerations: Present (Both) Monitor Decelerations: Absent (Both) Category of Tracing: Reactive Status: Category l Diagnosis, Plan/Disposition Final Diagnosis (1) 34 weeks gestation of : Status: Acute (2) AMA (advanced maternal age) primigravida 35+: Status: Acute (3) Dichorionic diamniotic twin gestation: Status: Acute Plan/Disposition Plan: Reactive nonstress test continue weekly nonstress tests and OB visits OB Disposition: home
== END 2023-06-28 09:58 | disposition home or self-care (01) ==
LOC: LABOR 09:25 → OB 07-02 06:43
PROVIDERS: PCP Family Medicine; Referring Provider Specialist; Visit Provider Specialist
DX: O30.043 Twin pregnancy, dichorionic/diamniotic, third trimester (principal); O09.513 Supervision of elderly primigravida, third trimester; Z3A.34 34 weeks gestation of pregnancy; O21.0 Mild hyperemesis gravidarum
CPT/HCPCS: 59025; 96360; G0378; G0379; J2405

== ENCOUNTER 2023-06-29 15:27 | Observation (INO) | payer OTHER, SELFPAY ==
[2021-10-11 10:32] VITALS: BMI 27.2
--- NOTE | 2023-06-29 17:01 | PM.OBTRLD ---
Visit Information Visit Information Date of evaluation: 06/29/23 On-call OB Provider: Елена Sanders Reason for Evaluation: Yes pre-term labor Vital Signs Vital Signs: Blood pressure 112/72, pulse 63 PFSH Medical History (Updated 06/29/23 @ 17:05 by Елена Sanders MD) Adenomyosis Infraorbital crease Anemia Herpes Borderline hypothyroidism Infertility management Infertility Ileostomy in place Large bowel obstruction Chicken pox (~1995) Vitamin D deficiency Surgical History (Updated 01/03/23 @ 09:47 by Jania Casas, RN) History of bowel resection Hx of ileostomy (03/03/20) S/P laparotomy Family History (Updated 01/03/23 @ 09:48 by Jania Casas, RN) Father Hypertension Grandfather Diabetes mellitus Grandfather Stroke Social History marital status: number of children: 0 household members: spouse lives independently: Yes housing: house pets and animals: Yes (3 dogs) education level: college (bachelor's degree) 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) current occupational exposures/hazards: No special david needs: No travel history: recent (local/domestic only) seatbelt use: always helmet use: Yes water heater temp set < 120 deg: Yes working smoke detector in home: Yes fire extinguisher in home: Yes carbon monox detector in home: Yes firearms in home: Yes firearms unloaded and locked: Yes do you feel safe at home: Yes Smoking Status: Never smoker second hand exposure: No alcohol intake: never substance use type: does not use during the past year weight has: increased > 10 lbs (~40 lb due to hormones w/ fertility Tx) well-balanced diet: daily or most days daily servings fruits/ve or more times/day caffeine: No Type(s) of exercise: bicycling (stationary bike), resistance training and other (hiking) frequency: 3-4 times per week Review of Systems Review of Systems Narrative: Patient is 34 weeks 1 day with dichorionic diamniotic twin gestation. She had intercourse this morning. She had vaginal spotting on and off since. She also has noticed a change in her abdomen with tightening but not significant pain. No leakage of fluid. Good movement. Exam Narrative Exam Narrative: Abdomen is soft, nontender. Contractions are palpable. Cervical exam vertex stretching lower uterine segment, cervix is closed and firm. There is slight blood on the glove. Evaluation Evaluation Baseline heart rate: 125 (Both) Variability: Moderate (11-25) (Both) monitor accelerations: Present (Both) Monitor Decelerations: Absent (Both) Contraction Frequency (minutes): 7 Uterine Contraction Intensity: Mild Category of Tracing: Reactive Status: Category l Cervical dilation (cm): 0 Cervical effacement (%): 25 station: -2 Diagnosis, Plan/Disposition Final Diagnosis (1) 34 weeks gestation of : Status: Acute (2) Dichorionic diamniotic twin gestation: Status: Acute (3) Premature labor in third trimester: Status: Acute Plan/Disposition Plan: Will start nifedipine protocol and give the patient betamethasone 12 mg IM. If contractions. The patient may be discharged home to return in 24 hours for repeat monitoring and 2nd dose of betamethasone. If contractions persist will admit.
[2023-06-29] MEDS: NIFEdipine 10 MG CAPSULE PO ×4 (17:27→18:25)
[2023-06-29] MEDS: BETAMETHASONE 30 MG/5 ML MDV 12 MG IM (17:28)
[2023-06-29] MEDS: LACTATED RINGERS 1,000 ML 1000 ML IV (19:03)
== END 2023-06-29 19:50 | disposition home or self-care (01) ==
LOC: LABOR 15:29
PROVIDERS: Admitting Provider Obstetrics & Gynecology; PCP Family Medicine; Referring Provider Obstetrics & Gynecology; Visit Provider Obstetrics & Gynecology
DX: O30.043 Twin pregnancy, dichorionic/diamniotic, third trimester (principal); O60.03 Preterm labor without delivery, third trimester; Z3A.34 34 weeks gestation of pregnancy
CPT/HCPCS: 59025; 59050; 96360; 96372; G0378; G0379; J0702

== ENCOUNTER 2023-06-30 16:02 | Outpatient (CLI) | payer OTHER, SELFPAY ==
[2021-10-11 10:32] VITALS: BMI 27.2
[2023-06-30] MEDS: BETAMETHASONE 30 MG/5 ML MDV 12 MG IM (16:34)
== END 2023-06-30 16:40 | disposition home or self-care (01) ==
LOC: OB 07-02 06:47
PROVIDERS: PCP Family Medicine; Referring Provider Family Medicine; Visit Provider Family Medicine
DX: O30.043 Twin pregnancy, dichorionic/diamniotic, third trimester (principal); O47.03 False labor before 37 completed weeks of gestation, third trimester; Z3A.34 34 weeks gestation of pregnancy
CPT/HCPCS: 59025; 96372; G0378; G0379; J0702

== ENCOUNTER 2023-07-02 12:19 | Outpatient (CLI) | payer OTHER, SELFPAY ==
[2021-10-11 10:32] VITALS: BMI 27.2
--- NOTE | 2023-07-02 13:16 | P.TNLD_ITS ---
Visit Information Visit Information Date of evaluation: 07/02/23 Primary OB Provider: Keira Tierney On-call OB Provider: Serene Painter Reason for Evaluation: Yes non-stress test Comments/Additional reasons for admission: NST for dichorionic diamniotic twin gestation. Vital Signs Vital Signs: BP 116/71. Pulse 66.Temp 36.6. PFSH Medical History (Updated 06/29/23 @ 17:05 by Елена Sanders MD) Adenomyosis Infraorbital crease Anemia Herpes Borderline hypothyroidism Infertility management Infertility Ileostomy in place Large bowel obstruction Chicken pox (~1995) Vitamin D deficiency Surgical History (Updated 01/03/23 @ 09:47 by Jania Casas, RN) History of bowel resection Hx of ileostomy (03/03/20) S/P laparotomy Family History (Updated 01/03/23 @ 09:48 by Jania Casas, JUAN M) Father Hypertension Grandfather Diabetes mellitus Grandfather Stroke Social History marital status: number of children: 0 household members: spouse lives independently: Yes housing: house pets and animals: Yes (3 dogs) education level: college (bachelor's degree) 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) current occupational exposures/hazards: No special advid needs: No travel history: recent (local/domestic only) seatbelt use: always helmet use: Yes water heater temp set < 120 deg: Yes working smoke detector in home: Yes fire extinguisher in home: Yes carbon monox detector in home: Yes firearms in home: Yes firearms unloaded and locked: Yes do you feel safe at home: Yes Smoking Status: Never smoker second hand exposure: No alcohol intake: never substance use type: does not use during the past year weight has: increased > 10 lbs (~40 lb due to hormones w/ fertility Tx) well-balanced diet: daily or most days daily servings fruits/ve or more times/day caffeine: No Type(s) of exercise: bicycling (stationary bike), resistance training and other (hiking) frequency: 3-4 times per week Evaluation Evaluation Baseline heart rate: 150 Variability: Moderate (11-25) monitor accelerations: Present Monitor Decelerations: Absent Category of Tracing: Reactive Status: Category l Diagnosis, Plan/Disposition Plan/Disposition Plan: Reactive NST. Continue weekly NST and OB visits. OB Disposition: home
== END 2023-07-02 13:20 | disposition home or self-care (01) ==
LOC: LABOR 12:41 → OB 07-06 10:26
PROVIDERS: PCP Family Medicine; Referring Provider Obstetrics & Gynecology; Visit Provider Obstetrics & Gynecology
DX: O30.043 Twin pregnancy, dichorionic/diamniotic, third trimester (principal); Z3A.34 34 weeks gestation of pregnancy
CPT/HCPCS: 59025; G0378; G0379

== ENCOUNTER 2023-07-09 13:26 | Outpatient (CLI) | payer OTHER, SELFPAY ==
[2021-10-11 10:32] VITALS: BMI 27.2
--- NOTE | 2023-07-09 17:09 | P.TNLD_ITS ---
Visit Information Visit Information Date of evaluation: 07/09/23 On-call OB Provider: Елена Sanders Reason for Evaluation: Yes non-stress test Comments/Additional reasons for admission: Di di Twin gestation 35 weeks 4 days, advanced maternal age Vital Signs Vital Signs: Blood pressure 112/73, temperature 97.2?, pulse of 97 [facility] Medical History (Updated 07/09/23 @ 17:14 by Елена Sanders MD) Adenomyosis Infraorbital crease Anemia Herpes Borderline hypothyroidism Infertility management Infertility Ileostomy in place Large bowel obstruction Chicken pox (~1995) Vitamin D deficiency Surgical History (Updated 01/03/23 @ 09:47 by Jania Casas, RN) History of bowel resection Hx of ileostomy (03/03/20) S/P laparotomy Family History (Updated 01/03/23 @ 09:48 by Jania Casas, RN) Father Hypertension Grandfather Diabetes mellitus Grandfather Stroke Social History marital status: number of children: 0 household members: spouse lives independently: Yes housing: house pets and animals: Yes (3 dogs) education level: college (bachelor's degree) 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) current occupational exposures/hazards: No special david needs: No travel history: recent (local/domestic only) seatbelt use: always helmet use: Yes water heater temp set < 120 deg: Yes working smoke detector in home: Yes fire extinguisher in home: Yes carbon monox detector in home: Yes firearms in home: Yes firearms unloaded and locked: Yes do you feel safe at home: Yes Smoking Status: Never smoker second hand exposure: No alcohol intake: never substance use type: does not use during the past year weight has: increased > 10 lbs (~40 lb due to hormones w/ fertility Tx) well-balanced diet: daily or most days daily servings fruits/ve or more times/day caffeine: No Type(s) of exercise: bicycling (stationary bike), resistance training and other (hiking) frequency: 3-4 times per week Evaluation Evaluation Baseline heart rate: 150 (both) Variability: Moderate (11-25) (Both) monitor accelerations: Present (Both) Monitor Decelerations: Absent (Both) Contraction Frequency (minutes): 0 Category of Tracing: Reactive Status: Category l Diagnosis, Plan/Disposition Final Diagnosis (1) 35 weeks gestation of : Status: Acute (2) Dichorionic diamniotic twin gestation: Status: Acute (3) AMA (advanced maternal age) primigravida 35+: Status: Acute Plan/Disposition Plan: Reactive nonstress test. Keep routine OB visits and NSTs OB Disposition: home
== END 2023-07-09 14:16 | disposition home or self-care (01) ==
LOC: LABOR 13:41 → OB 07-10 10:55
PROVIDERS: PCP Family Medicine; Referring Provider Obstetrics & Gynecology; Visit Provider Obstetrics & Gynecology
DX: O30.043 Twin pregnancy, dichorionic/diamniotic, third trimester (principal); O09.513 Supervision of elderly primigravida, third trimester; Z3A.35 35 weeks gestation of pregnancy
CPT/HCPCS: 59025; G0378; G0379

== ENCOUNTER → 2023-07-12 08:35 | Outpatient (CLI) | payer OTHER, SELFPAY ==
[2021-10-11 10:32] VITALS: BMI 27.2
[2023-07-13 07:59] LABS: Strep Grp B PCR NEG for Grp B Strep
== END ==
PROVIDERS: PCP Family Medicine; Visit Provider Specialist
DX: Z34.03 Encounter for supervision of normal first pregnancy, third trimester (principal); Z3A.36 36 weeks gestation of pregnancy
CPT/HCPCS: 87653

== ENCOUNTER 2023-07-12 13:59 | Outpatient (CLI) | payer OTHER, SELFPAY ==
[2021-10-11 10:32] VITALS: BMI 27.2
== END 2023-07-12 14:41 | disposition home or self-care (01) ==
LOC: OB 07-17 06:18
PROVIDERS: PCP Family Medicine; Referring Provider Obstetrics & Gynecology; Visit Provider Obstetrics & Gynecology
DX: O30.043 Twin pregnancy, dichorionic/diamniotic, third trimester (principal); O09.513 Supervision of elderly primigravida, third trimester; Z3A.36 36 weeks gestation of pregnancy; Z34.03 Encounter for supervision of normal first pregnancy, third trimester
CPT/HCPCS: 59025; 87653; 96360; G0378; G0379

== ENCOUNTER 2023-07-16 08:53 | Outpatient (CLI) | payer OTHER, SELFPAY ==
[2021-10-11 10:32] VITALS: BMI 27.2
== END 2023-07-16 09:47 | disposition home or self-care (01) ==
LOC: LABOR 08:55 → OB 07-19 15:47
PROVIDERS: PCP Family Medicine; Referring Provider Obstetrics & Gynecology; Visit Provider Obstetrics & Gynecology
DX: O30.043 Twin pregnancy, dichorionic/diamniotic, third trimester (principal); O09.513 Supervision of elderly primigravida, third trimester; Z3A.36 36 weeks gestation of pregnancy
CPT/HCPCS: 59025; G0378; G0379

== ENCOUNTER 2023-07-19 13:08 | Outpatient (CLI) | payer OTHER, SELFPAY ==
[2021-10-11 10:32] VITALS: BMI 27.2
--- NOTE | 2023-07-19 13:50 | PM.OBTRLD ---
Visit Information Visit Information Date of evaluation: 07/19/23 Primary OB Provider: Keira Tienrey On-call OB Provider: Keira Tierney Reason for Evaluation: Yes non-stress test non-stress test reason: other (Twins) [facility] Medical History (Updated 07/12/23 @ 08:34 by Елена Sanders MD) Adenomyosis Infraorbital crease Anemia Herpes Borderline hypothyroidism Infertility management Infertility Ileostomy in place Large bowel obstruction Chicken pox (~1995) Vitamin D deficiency Surgical History (Updated 01/03/23 @ 09:47 by Jania Casas, RN) History of bowel resection Hx of ileostomy (03/03/20) S/P laparotomy Family History (Updated 01/03/23 @ 09:48 by Jania Casas RN) Father Hypertension Grandfather Diabetes mellitus Grandfather Stroke Social History marital status: number of children: 0 household members: spouse lives independently: Yes housing: house pets and animals: Yes (3 dogs) education level: college (bachelor's degree) 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) current occupational exposures/hazards: No special david needs: No travel history: recent (local/domestic only) seatbelt use: always helmet use: Yes water heater temp set < 120 deg: Yes working smoke detector in home: Yes fire extinguisher in home: Yes carbon monox detector in home: Yes firearms in home: Yes firearms unloaded and locked: Yes do you feel safe at home: Yes Smoking Status: Never smoker second hand exposure: No alcohol intake: never substance use type: does not use during the past year weight has: increased > 10 lbs (~40 lb due to hormones w/ fertility Tx) well-balanced diet: daily or most days daily servings fruits/ve or more times/day caffeine: No Type(s) of exercise: bicycling (stationary bike), resistance training and other (hiking) frequency: 3-4 times per week Evaluation Evaluation Baseline heart rate: 150 Variability: Moderate (11-25) monitor accelerations: Present Monitor Decelerations: Absent Category of Tracing: Reactive Comments: Above is for A, B baseline 140's. Accels, no decels. Reactive Diagnosis, Plan/Disposition Plan/Disposition Plan: Assessment: Twins at 37 weeks' gestation Reactive nonstress test x2 Plan: Follow-up on July 24, 2023 for scheduled OB appointment and repeat nonstress test OB Disposition: home
== END 2023-07-19 13:46 | disposition home or self-care (01) ==
LOC: LABOR 13:13 → OB 07-24 08:50
PROVIDERS: PCP Family Medicine; Referring Provider Obstetrics & Gynecology; Visit Provider Obstetrics & Gynecology
DX: O30.043 Twin pregnancy, dichorionic/diamniotic, third trimester (principal); O21.0 Mild hyperemesis gravidarum; Z3A.37 37 weeks gestation of pregnancy
CPT/HCPCS: 59025; 96360; G0378; G0379

== ENCOUNTER 2023-07-23 11:45 | Outpatient (CLI) | payer OTHER, SELFPAY ==
[2021-10-11 10:32] VITALS: BMI 27.2
--- NOTE | 2023-07-23 17:59 | P.TNLD_ITS ---
Visit Information Visit Information Date of evaluation: 07/23/23 Primary OB Provider: Keira Tierney On-call OB Provider: Keira Tierney Reason for Evaluation: Yes non-stress test non-stress test reason: other (di di twins at 37+4 wks gestation) [facility] Medical History (Updated 07/12/23 @ 08:34 by Елена Sanders MD) Adenomyosis Infraorbital crease Anemia Herpes Borderline hypothyroidism Infertility management Infertility Ileostomy in place Large bowel obstruction Chicken pox (~1995) Vitamin D deficiency Surgical History (Updated 01/03/23 @ 09:47 by Jania Casas, RN) History of bowel resection Hx of ileostomy (03/03/20) S/P laparotomy Family History (Updated 01/03/23 @ 09:48 by Jania Casas, JUAN M) Father Hypertension Grandfather Diabetes mellitus Grandfather Stroke Social History marital status: number of children: 0 household members: spouse lives independently: Yes housing: house pets and animals: Yes (3 dogs) education level: college (bachelor's degree) 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) current occupational exposures/hazards: No special david needs: No travel history: recent (local/domestic only) seatbelt use: always helmet use: Yes water heater temp set < 120 deg: Yes working smoke detector in home: Yes fire extinguisher in home: Yes carbon monox detector in home: Yes firearms in home: Yes firearms unloaded and locked: Yes do you feel safe at home: Yes Smoking Status: Never smoker second hand exposure: No alcohol intake: never substance use type: does not use during the past year weight has: increased > 10 lbs (~40 lb due to hormones w/ fertility Tx) well-balanced diet: daily or most days daily servings fruits/ve or more times/day caffeine: No Type(s) of exercise: bicycling (stationary bike), resistance training and other (hiking) frequency: 3-4 times per week Evaluation Evaluation Baseline heart rate: 140 (150) Variability: Moderate (11-25) monitor accelerations: Present Monitor Decelerations: Absent Category of Tracing: Reactive (x2) Diagnosis, Plan/Disposition Plan/Disposition Plan: Assessment: 37+4 wks gestation with di di twins Reactive NST x 2 Plan: F/U 1 day for routine ob visit OB Disposition: home
== END 2023-07-23 12:25 | disposition home or self-care (01) ==
LOC: OB 07-24 08:51
PROVIDERS: PCP Family Medicine; Referring Provider Obstetrics & Gynecology; Visit Provider Obstetrics & Gynecology
DX: O30.043 Twin pregnancy, dichorionic/diamniotic, third trimester (principal); O21.0 Mild hyperemesis gravidarum; Z3A.37 37 weeks gestation of pregnancy
CPT/HCPCS: 59025; 96360; G0378; G0379

== ENCOUNTER 2023-07-26 12:42 | Outpatient (CLI) | payer OTHER, SELFPAY ==
[2021-10-11 10:32] VITALS: BMI 27.2
== END 2023-07-26 13:00 | disposition home or self-care (01) ==
LOC: LABOR 12:44 → OB 07-30 06:48
PROVIDERS: PCP Family Medicine; Referring Provider Obstetrics & Gynecology; Visit Provider Obstetrics & Gynecology
DX: O30.043 Twin pregnancy, dichorionic/diamniotic, third trimester (principal); O09.513 Supervision of elderly primigravida, third trimester; Z3A.38 38 weeks gestation of pregnancy
CPT/HCPCS: 59025; 96360; G0378; G0379

== ENCOUNTER 2023-07-30 05:38 | Inpatient (IN) | payer OTHER, SELFPAY ==
[2021-10-11 10:32] VITALS: BMI 27.2
[2023-07-30 06:13] VITALS: BP 107/75
[2023-07-30 07:09] LABS: Add Manual Diff / Slide Review NO; Basophils Absolute Auto 100 /uL (0-100); Eosinophils Absolute Auto 400 /uL (0-450); Eosinophils Percent Auto 2.8 % (2-4); Hematocrit 36.1 % (36-46); Hemoglobin 12.4 g/dL (12.0-16.0); Lymphocytes Absolute Auto 2700 /uL (1100-4500); Lymphocytes Percent Auto 20.6 % (25-40); Mean Corpuscular HGB Conc 34.3 % (30-36); Mean Corpuscular Hemoglobin 30.2 PG (26-34); Mean Corpuscular Volume 88.2 fL (80-100); Monocytes Absolute Auto 900 /uL (0-900); Monocytes Percent Auto 6.9 % (3-14); Neutrophils Absolute Auto 8800 /uL (1500-7000); Neutrophils Percent Auto 68.7 % (50-75); Platelet Count 297 X10^3/uL (150-400); Red Cell Distribution Width 14.3 % (11.6-14.8); White Blood Cell Count 12.9 X10^3/uL (4.5-11.0)
--- NOTE | 2023-07-30 07:41 | P.HPOB_ITS ---
OB HPI Date/Time Date of admission: 07/30/23 Date Patient Seen: 07/30/23 Time Patient Seen: 07:41 History of Present Condition Chief complaint: Primary XIMENA Calculator 2 Estimated Delivery Date Method Current WG Current Estimate 08/09/23 Conception 38w 4d Other Estimates 08/12/23 LMP (Certain) 38w 1d 08/07/23 Ultrasound #1 38w 6d # 2 Estimated Gestational Age (weeks): 38+4 : 1 Para: 0 care: good care, initiated at week # (9), number of visits (11) and pounds weight gain (29) Dating criteria OB: LMP confirmed by 1st trimester US Ultrasounds: normal 1st trimester US and normal mid trimester US Obstetrical complications: other (twin gestation) Medical complications OB: none Indications Operative indications ( section): multiple gestation Preadmission Labs Last OB Lab Results: 2 Blood Type B Positive 01/11/23 08:16 Antibody Screen Negative 01/11/23 08:16 Hematocrit 36.1 % (36-46) 07/30/23 06:50 Hemoglobin 12.4 g/dL (12.0-16.0) 07/30/23 06:50 Hepatitis B Surface Antigen Negative s/c (NEGATIVE) 01/11/23 08 :16 Hepatitis C Antibody Negative s/c (NEGATIVE) 01/11/23 08:16 Rubella Antibody 12.7 IU/mL (>15) L 01/11/23 08:16 Varicella-Zoster IgG Antibody 1030 index (Immune >165) 01/11/23 08:16 Group B Streptococcus (PCR) Neg for grp b strep 07/12/23 08:35 -: Chlamydia screen: negative, Gonorrhea screen: negative and Urine: negative -: PAP smear: Normal Genetic Screens: Cell-free DNA: Normal and Alpha-fetoprotein: Normal External Labs -: Urine: negative Evaluation Evaluation Baseline heart rate: 140 Variability: Moderate (11-25) (x2) monitor accelerations: Present (x2) Monitor Decelerations: Absent (x2) Category of Tracing: Reactive PFSH Medical History (Updated 07/24/23 @ 13:22 by Keira Tierney MD) Adenomyosis Infraorbital crease Anemia Herpes Borderline hypothyroidism Infertility management Infertility Ileostomy in place Large bowel obstruction Chicken pox (~1995) Vitamin D deficiency Surgical History (Updated 01/03/23 @ 09:47 by Jania Casas RN) History of bowel resection Hx of ileostomy (03/03/20) S/P laparotomy Family History (Updated 01/03/23 @ 09:48 by Jania Casas RN) Father Hypertension Grandfather Diabetes mellitus Grandfather Stroke Social History marital status: number of children: 0 household members: spouse lives independently: Yes housing: house pets and animals: Yes (3 dogs) education level: college (bachelor's degree) 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) current occupational exposures/hazards: No special david needs: No travel history: recent (local/domestic only) seatbelt use: always helmet use: Yes water heater temp set < 120 deg: Yes working smoke detector in home: Yes fire extinguisher in home: Yes carbon monox detector in home: Yes firearms in home: Yes firearms unloaded and locked: Yes do you feel safe at home: Yes Smoking Status: Never smoker second hand exposure: No alcohol intake: never substance use type: does not use during the past year weight has: increased > 10 lbs (~40 lb due to hormones w/ fertility Tx) well-balanced diet: daily or most days daily servings fruits/ve or more times/day caffeine: No Type(s) of exercise: bicycling (stationary bike), resistance training and other (hiking) frequency: 3-4 times per week Meds Home Medications and Allergies Home Medications Medication Instructions Recorded Confirmed Type 1 tab PO DAILY 09/20/21 07/24/23 History clonazepam 0.5 mg tablet 0.5 mg PO BID PRN Anxiety 09/20/21 07/24/23 History valacyclovir 1 gram tablet 1,000 mg PO BID #20 tabs 11/04/21 07/24/23 Rx acidophilus 100 million cap PO 01/03/23 07/24/23 History cell-pectin, citrus 10 mg capsule (Probiotic Acidophilus-Pectin) omega 5-yjh-xva-fish oil 1,200 mg cap PO 01/03/23 07/24/23 History (144 mg-216 mg) capsule (Fish Oil) promethazine 25 mg tablet 25 mg PO TID PRN 07/26/23 02/13/24 History hydroxyzine HCl 25 mg tablet 25 mg PO BID PRN anxiety #20 tabs 01/09/23 07/24/23 Rx ondansetron 4 mg disintegrating 4 mg PO Q6H PRN nausea and 01/09/23 07/24/23 Rx tablet vomiting #20 tabs aspirin 81 mg tablet,delayed 81 mg PO DAILY 03/05/23 07/24/23 History release metoclopramide HCl 10 mg tablet 10 mg PO Q6H PRN nausea and 04/09/23 07/24/23 Rx (Reglan) vomiting #20 tabs blood sugar diagnostic (Blood #120 ea 04/10/23 07/24/23 Rx Glucose Test strips) blood-glucose meter (Blood Glucose #1 ea 04/10/23 07/24/23 Rx Monitoring kit) lancets #120 ea 04/10/23 07/24/23 Rx levothyroxine 50 mcg tablet 50 mcg PO DAILY #90 tabs 07/03/23 07/24/23 Rx Allergies Allergy/AdvReac Type Severity Reaction Status Date / Time No Known Drug Allergies Allergy Verified 07/24/23 11:39 OB Exam Narrative Exam Narrative: Generally: Sitting up in bed, NAD Lungs: CTA bilaterally CV: RRR FH: 44 cm Abd: Soft Ext: 1+ edema Objective Labs 07/30/23 06:50 Labs: Laboratory Results - last 24 hr 07/30/23 06:50 WBC 12.9 H RBC 4.10 Hgb 12.4 Hct 36.1 MCV 88.2 MCH 30.2 MCHC 34.3 RDW 14.3 Plt Count 297 Neut % (Auto) 68.7 Lymph % (Auto) 20.6 L Norman % (Auto) 6.9 Eos % (Auto) 2.8 Baso % (Auto) 1.0 Neut # (Auto) 8800 H Lymph # (Auto) 2700 Norman # (Auto) 900 Eos # (Auto) 400 Baso # (Auto) 100 Assessment and Plan Assessment and Plan Assessment and Plan narrative: Assessment: 37-year-old 1 para 0 at 38-,4/7 weeks gestation with di/di twins History of severe endometriosis, status post partial colon resection Plan: Primary low-transverse section The risks, benefits, and alternatives to the procedure were explained to the patient. The risks including bleeding, infection, injury to the bowel, bladder, or ureters. She understands these risks and agrees to proceed. A full par Q was held and consent form was signed. Hemorrhage cart present Time Spent with Patient Total time spent with greater than 50% in coordination of care (as documented) at patient's floor/unit and/or counseling patient:: 15-24 minutes
--- NOTE | 2023-07-30 08:00 | PM.PREOP ---
Pre-operative Note Interval Note History & Physical reviewed/Exam performed by Physician: Yes Changes to H&P: No H&P completed within 30 days and has changed as indicated here:: 07/30/23
[2023-07-30] MEDS: CEFAZOLIN 2 GM/100 ML PREMIX 100 ML IV (08:20)
--- NOTE | 2023-07-30 08:35 | SUR.OPER ---
Supine on padded OR bed, head on pillow, arms on padded arm boards at <90 degrees abduction, legs uncrossed, safety belt at thigh, tape over blanket over lower legs.
--- NOTE | 2023-07-30 08:52 | SUR.OPER ---
Viable female twins delivered via at 0836-baby A, 0837-baby B. Cord blood x2 and placenta x2 sent with Lelia&JUAN M Gonzalez.
[2023-07-30 09:27] VITALS: BP 99/58; PULSE 60; RESP 12; TEMP 36.6; O2SAT 98
[2023-07-30 09:32] VITALS: BP 111/64; PULSE 80; RESP 14; O2SAT 99
[2023-07-30 09:37] VITALS: BP 122/59; PULSE 62; RESP 18; O2SAT 99
--- NOTE | 2023-07-30 09:41 | P.OP_ITS ---
Operative Date/Time/Diagnoses Date of procedure: 07/30/23 Time of procedure: 09:41 Pre-op diagnosis: 38+ 4 weeks' gestation Dichorionic/diamniotic twins Post-op diagnosis: same Procedure & Clinicians Procedure: Primary low-transverse section Same procedure as scheduled: Yes Indications: 37-year-old 1 para 0 at 38-,4/7 weeks gestation with dichorionic/diamniotic twins. Previous history of partial colectomy due to severe endometriosis Surgeon: Keira Hall Yes if Unassisted: No Group Marketing Vp: Carmen Yen Reason for Group Marketing Vp: The trading assistant was necessary to retract upon entry into the abdomen and uterus. She assisted with delivery of both infants with fundal pressure. She assisted with closure with retraction, clipping of suture, and closure of the contralateral fascia. Anesthesia Type: Spinal (With Duramorph) Operative Notes Findings: Live female infant x2 in the vertex presentation Normal uterus, tubes, and ovaries No endometriosis visualized Closure Type: primary Specimen(s): cord blood and placenta Intraoperative meds administered: Duramorph, Ketorolac and Pitocin Applied: Catheter (to continuous drainage) Estimated Blood Loss (mL): 500 Blood products transfused: none Procedure in detail: The patient was taken to the operating room where she was placed in the seated position. Spinal anesthesia with Duramorph was administered. The patient was then placed in the dorsal supine position with a leftward tilt. She was prepped and draped in the usual sterile fashion. A timeout was performed. After spinal analgesia was found to be adequate, a Pfannenstiel skin incision was made through the previous incision and carried through to the underlying layer fascia. The fascia was nicked in the midline, and the incision extended bilaterally with the Catherine scissors. The superior aspect of the fascial incision was grasped with a Lore clamps, elevated, and the underlying rectus muscles dissected off sharply and bluntly. Attention was then turned to the inferior aspect of this incision which in a similar fashion was grasped with a Mather clamps, elevated, and the underlying rectus muscles dissected off sharply and bluntly. The rectus muscles were in the midline. The peritoneum was identified, grasped between 2 hemostats, and entered sharply with the Metzenbaum scissors. This incision was extended superiorly and inferiorly with good visualization of the bladder. The bladder blade was inserted. The vesicouterine peritoneum was identified, grasped with the pickup, and entered sharply with the Metzenbaum scissors. This incision was extended bilaterally, and the bladder flap was created digitally. The bladder blade was reinserted. The lower uterine segment was incised in a transverse fashion with the scalpel. Upon entering the first amniotic sac there was moderate amount of clear amniotic fluid. The 's head was delivered without difficulty. The nose and mouth were suctioned with bulb suction. The remainder of the body delivered without difficulty. The was wrapped in a warm blanket. The sac of the second baby was ruptured and there was clear amniotic fluid. The 's head was delivered without difficulty. The remainder of the body delivered without difficulty, and the was wrapped in a warm blanket. The cords were double clamped and cut after 1 minute. Cord bloods were obtained for both placentas. The cords were labeled with 1 clamp on a and 2 clamps on B. The infants were handed off to waiting RN and RT. The placenta was delivered by expression. The uterus was cleared of all clots and debris. The uterine incision was repaired with #1 chromic in a running interlocking fashion, and a second layer the same suture was used for an imbricating layer. There was an area of bleeding on the right edge of the incision and a [id number]-[id number] suture with 2-0 Vicryl was placed for hemostasis. Hemostasis was achieved. The tubes and ovaries were examined and were found to be normal. There was no endometriosis visualized. The gutters were cleared of all clots and debris. The bladder flap was reapproximated using 2-0 Vicryl in a running fashion. The parietal peritoneum was closed using 2-0 Vicryl in a running fashion. The fascia was reapproximated using 0 Vicryl in a running fashion. The subcutaneous layer was copiously irrigated with warm normal saline. 5 simple interrupted sutures of 3- 0 Vicryl were placed to reapproximate the subcutaneous layer. The skin was closed with 4-0 monocryl in a subcuticular fashion. Steri-Strips were placed. An Aquacel dressing was placed. The uterus was expressed of a small amount of old blood. Sponge, lap, and instrument counts were correct x-2. The patient tolerated the procedure well, and was taken to PACU in stable condition. Complications: none [place] Baby 1: Gender: Female Presentation: vertex Position: Right Occiput Anterior Placental Delivery Description: Expressed Cord Vessel Description: 3 Vessels and Clamped/Cut (after one minute) score (1 min): 8 score (5 min): 9 weight: 6 lb 4 oz 2: Gender: Female Presentation: vertex Position: Right Occiput Anterior Placental Delivery Description: Expressed Cord Vessel Description: 3 Vessels and Clamped/Cut (after one minute) score (1 min): 7 score (5 min): 8 weight: 5 lb 15.9 oz Post-operative Condition: stable Disposition: PACU Aftercare: routine postop (to the Center)
[2023-07-30 09:44] VITALS: BP 111/62; PULSE 90; RESP 16; TEMP 36.6; O2SAT 99
[2023-07-30] MEDS: ACETAMINOPHEN 325 MG TABLET 650 MG PO (13:29)
[2023-07-30] MEDS: KETOROLAC 30 MG/ML VIAL IV ×2 (16:17→22:28)
[2023-07-30] MEDS: diphenhydrAMINE 50 MG/ML VIAL 25 MG IV (16:19)
[2023-07-30] MEDS: LACTATED RINGERS 1,000 ML 999 ML IV (18:39)
[2023-07-30] MEDS: OXYCODONE IR 5 MG TABLET PO ×2 (20:00→20:58)
[2023-07-31] MEDS: OXYCODONE IR 10 MG TABLET PO ×6 (01:20→22:50)
[2023-07-31] MEDS: KETOROLAC 30 MG/ML VIAL IV (04:30)
[2023-07-31 05:17] LABS: Add Manual Diff / Slide Review NO; Basophils Absolute Auto 100 /uL (0-100); Basophils Percent Auto 0.7 % (0-2); Eosinophils Absolute Auto 300 /uL (0-450); Eosinophils Percent Auto 2.2 % (2-4); Hematocrit 30.8 % (36-46); Hemoglobin 10.7 g/dL (12.0-16.0); Lymphocytes Absolute Auto 2500 /uL (1100-4500); Lymphocytes Percent Auto 18.5 % (25-40); Mean Corpuscular HGB Conc 34.7 % (30-36); Mean Corpuscular Hemoglobin 31.1 PG (26-34); Mean Corpuscular Volume 89.5 fL (80-100); Monocytes Absolute Auto 900 /uL (0-900); Neutrophils Absolute Auto 9500 /uL (1500-7000); Neutrophils Percent Auto 71.6 % (50-75); Platelet Count 232 X10^3/uL (150-400); Red Blood Cell Count 3.45 X10^6/uL (4.0-5.2); Red Cell Distribution Width 14.5 % (11.6-14.8); White Blood Cell Count 13.3 X10^3/uL (4.5-11.0)
[2023-07-31] MEDS: diphenhydrAMINE 50 MG/ML VIAL 25 MG IV (06:25)
[2023-07-31] MEDS: LEVOTHYROXINE 50 MCG TABLET PO (07:24)
[2023-07-31] MEDS: PRENATAL VIT,CALC/IRON/FOLIC 1 TABLET 1 TAB PO (09:50)
[2023-07-31] MEDS: DOCUSATE 100 MG CAPSULE PO ×2 (09:50→20:26)
[2023-07-31] MEDS: IBUPROFEN 600 MG TABLET PO ×3 (09:50→22:50)
[2023-07-31] MEDS: ACETAMINOPHEN 325 MG TABLET 650 MG PO ×2 (12:30→19:22)
[2023-07-31] MEDS: HYDROMORPHONE 2 MG TABLET PO (20:26)
--- NOTE | 2023-07-31 21:19 | P.PNOB_ITS ---
Subjective - OB Subjective Patient comments: incisional pain and tolerating diet baby status: doing well (x2) and nursing well feeding status: exclusively breast feeding Date Patient Seen: 07/31/23 Time Patient Seen: 11:45 Interval history: POD #1 s/p primary C section of twins Having some pain issues. Hasn't slept. Babies doing well. Has voided without the catheter. Exam Vital Signs (past 8 hours): Oxygen Delivery Method Room Air Narrative Exam Narrative: Gen: Patient sitting up in bed, holding , NAD Lungs: CTA bilat CV: RRR Fundus: Firm at U Incision: C/D/I with Aquacel Ext: 1+ edema, negative Brandi's Objective Labs 07/31/23 05:05 Labs: Laboratory Results - last 24 hr 07/31/23 05:05 WBC 13.3 H RBC 3.45 L Hgb 10.7 L Hct 30.8 L MCV 89.5 MCH 31.1 MCHC 34.7 RDW 14.5 Plt Count 232 Neut % (Auto) 71.6 Lymph % (Auto) 18.5 L [place] % (Auto) 7.0 Eos % (Auto) 2.2 Baso % (Auto) 0.7 Neut # (Auto) 9500 H Lymph # (Auto) 2500 [place] # (Auto) 900 Eos # (Auto) 300 Baso # (Auto) 100 Assessment & Plan Plan day: 1 plan OB: routine postop care Comments: Add Dilaudid for pain management Encouraged sleep Time Spent With Patient Time: Total time spent is greater than 50% in coordination of care (as documented) at patient's floor/unit and/or counseling patient: Time with patient: 15-24 minutes
[2023-08-01] MEDS: HYDROMORPHONE 2 MG TABLET PO ×2 (02:23→08:10)
[2023-08-01] MEDS: ACETAMINOPHEN 325 MG TABLET 650 MG PO ×2 (02:23→08:09)
[2023-08-01] MEDS: IBUPROFEN 600 MG TABLET PO (06:33)
[2023-08-01] MEDS: OXYCODONE IR 10 MG TABLET PO ×2 (06:34→11:03)
[2023-08-01] MEDS: LEVOTHYROXINE 50 MCG TABLET PO (06:35)
[2023-08-01] MEDS: PRENATAL VIT,CALC/IRON/FOLIC 1 TABLET 1 TAB PO (08:10)
[2023-08-01] MEDS: DOCUSATE 100 MG CAPSULE PO (08:10)
[2023-08-01] MEDS: MEASLES,MUMPS,RUBELLA VACC/PF 0.5 ML VIAL SUBCUT (11:15)
--- NOTE | 2023-08-05 17:12 | PM.OBDS.1 ---
Discharge Providers Provider Date of admission: 07/30/23 05:38 Discharge Date: 08/01/23 Primary care physician: Sam Patricio DO Consults: 07/30/23 09:51 Consult to Senior Enterprise Architect Routine Comment: Discharge provider: Keira Tierney MD Summary Hospital Course Date Patient Seen: 08/01/23 Time Patient Seen: 11:30 Diagnoses: 38+4 weeks gestation dichorionic/diamniotic twin gestation Previous extensive surgery for endometriosis Primary low transverse C section Hospital Course: Patient is a 37 year old who presented on 07/30/23 for a scheduled primary C section at 38+4 wks gestation. She underwent this procedure without complication. Her postoperative course was unremarkable and she was discharged to home on 08/01/23. No nause or vomiting. Pain in good control. Tolerating a diet. Ambulating without assistance. was going well. Peripartum Data Infant Delivery Method: Section Procedures: Spinal anesthesia Primary Low Transverse C section complications: none 1: Gender: Female Disposition of : home 2: Gender: Female Disposition of : home Status at Discharge Cognitive/behavioral status at discharge: oriented Functional status at discharge: independent ambulation Overall status at discharge: patient is progressing back to baseline Time Spent with Patient Time attestation: Total time spent providing and/or coordinating discharge services: Time spent: Less than 30 minutes Objective Labs 07/31/23 05:05 Exam Vital Signs (past 8 hours): Oxygen Delivery Method Room Air Narrative Exam Narrative: Generally: Sitting up in bed, NAD Lungs: CTA bilat CV: RRR Fundus: Firm at U/+1 Incision: C/D/I with an Aquacel dressing Ext: 1+ edema Discharge Plan Discharge Plan Patient Disposition: Home Provider Discharge Comment: Call with fever, chills, redness or drainage around the incision, or bleeding vaginally more than a pad in an hour Ibuprofen 600 mg every 6 hours with food or milk Tylenol 650 mg every 6 hours as needed Stool softeners and MiraLax Discharge orders & Medications Prescriptions: Continued levothyroxine 50 mcg tablet 50 mcg PO DAILY Qty: 90 0RF hydroxyzine HCl 25 mg tablet 25 mg PO BID PRN (Reason: anxiety) Qty: 20 3RF omega [id number] oil [Fish Oil] 1,200 (144-216) mg capsule PO acidophilus-pectin, citrus [Probiotic Acidophilus-Pectin] 100 million cell-10 mg capsule PO 1 tab PO DAILY Discontinued metoclopramide HCl [Reglan] 10 mg tablet 10 mg PO Q6H PRN (Reason: nausea and vomiting) Qty: 20 3RF aspirin 81 mg tablet,delayed release (DR/EC) 81 mg PO DAILY valacyclovir 1 gram tablet 1,000 mg PO BID Qty: 20 1RF ondansetron 4 mg tablet,disintegrating 4 mg PO Q6H PRN (Reason: nausea and vomiting) Qty: 20 3RF promethazine 25 mg tablet 25 mg PO TID PRN clonazepam 0.5 mg tablet 0.5 mg PO BID PRN (Reason: Anxiety) Hold Instructions: No Action (DME) lancets Misc See Rx Instructions .ROUTE .MEDSUPPLY Qty: 120 3RF Rx Instructions: Testing blood sugars fasting and 2 hr PP (DME) Blood Glucose Test Strip See Rx Instructions .ROUTE .MEDSUPPLY Qty: 120 3RF Rx Instructions: Testing blood sugars fasting and 2 hr PP (DME) blood-glucose meter [Blood Glucose Monitoring] Kit See Rx Instructions .ROUTE .MEDSUPPLY Qty: 1 0RF Rx Instructions: To use with testing fasting and 2 hr PP blood sugars oxycodone 5 mg tablet 5 mg PO Q6H PRN (Reason: pain) Qty: 10 0RF Follow up/Referrals: Keira Tierney MD [Physician] - 6 Weeks (Incision check on 08/06/2023 @ 3:30pm check in time. Follow up appt with Dr. Sanders on 09/10/2023 @ 1:45pm appointment on 08/02/23 @ 09:00am ) Diet/Activity/Treatments Diet: Regular Activity: No heavy lifting, nothing more than the babies or a gal of milk Skin/Wound/Dressing Care Report to your healthcare provider any signs of infection, such as:: chills, fever, increased pain, unusual drainage and unusual redness Dressing: Do not remove Visit Report/Discharge Packet Instructions: DI for , DI for Prescription Opioid Use Stand Alone Forms: Discharge: Care, Patient Portal/API, Stroke Signs & Symptoms Discharge Data Primary Care Provider: Sam Patricio
== END 2023-08-01 13:03 | disposition home or self-care (01) | DRG 788 ==
PROVIDERS: Admitting Provider Obstetrics & Gynecology; PCP Family Medicine; Referring Provider Obstetrics & Gynecology; Visit Provider Obstetrics & Gynecology
PROC: 10D00Z1 Extraction of Products of Conception, Low, Open Approach (ICD-10-PCS; CPT 59514; principal; 2023-07-30 07:45)
DX: O30.043 Twin pregnancy, dichorionic/diamniotic, third trimester (principal); Z37.2 Twins, both liveborn; Z3A.38 38 weeks gestation of pregnancy
CPT/HCPCS: 36415; 59050; 59510; 59514; 85025; 86850; 86900; 86901; J0690; J1200; J1885; J2274; J2405

== ENCOUNTER → 2023-09-15 07:50 | Outpatient (CLI) | payer OTHER, SELFPAY ==
[2021-10-11 10:32] VITALS: BMI 27.2
[2023-09-15 09:36] LABS: TSH w/ Reflex to FT4 1.13 uIU/mL (0.47-4.68)
== END ==
PROVIDERS: PCP Family Medicine; Referring Provider Specialist; Visit Provider Specialist
DX: O99.280 Endocrine, nutritional and metabolic diseases complicating pregnancy, unspecified trimester (principal); E03.9 Hypothyroidism, unspecified
CPT/HCPCS: 36415; 84443